=== PATIENT | female | born 1975 | race Caucasian/White ===

== ENCOUNTER 2024-11-10 01:27 | Day surgery (SDC) | payer OTHER, MEDICAID, SELFPAY ==
[2024-11-02 10:23] VITALS: BMI 12.9
--- NOTE | 2024-11-02 17:40 | PC.NURSE ---
Report to the Outpatient Waiting Room, entrance under the green pavilion located off [facility], at time 0830 on date 11/10/24. Planned Procedure Time: 1030.? Time changes happen often and if your time is changed the preop area will call you the afternoon before. - You and your visitor will be asked to self-screen and do not enter if you have any COVID symptoms. Please call surgeon if you need to reschedule. - A mask is optional within the hospital at this time. Patients may have clear liquids (water, carbonated beverages, clear teas, apple juice) until 3 hours prior to surgery with a maximum of 20 ounces. 0730 - No food from midnight until time of surgery and no smoking, or chewing tobacco (or any form of nicotine). No chewing gum, candy or mints. - Infants may have breast milk until 4 hours before surgery, formula 6 hours prior to surgery. - Children will be allowed to drink immediately following surgery.? If applicable, please bring a bottle or sippy cup to assist with drinking. Juice, water, soda, and popsicles are readily available.? For infants on formula, please bring formula the day of surgery.? Pacifiers are allowed. Take only the following medications with a SIP of water on the morning of surgery: lexapro, gabapentin, midodrine DO NOT STOP ANY OF YOUR OTHER PRESCRIPTION MEDICATIONS PRIOR TO SURGERY EXCEPT THE FOLLOWING Hold all vitamins and supplements for 3 days per anesthesiologist. Medications to discontinue per physician baby aspirin- hold for [address] Delvalle's instructions Date to take last dose 11/03/24 Please no make-up, nail cymro, hairspray, perfume, deodorant, or body powder the day of surgery.? No jewelry (including any body piercings) or valuables the day of surgery, leave them at home.? Please take a shower or bath the night before, or the morning of, surgery with an antibacterial soap.? Wear comfortable, loose fitting clothing.? Children are encouraged to wear pajamas. - Jewelry must be removed prior to entering the operating room.? Rings and piercings that are not removed may be cut off. - The hospital will not accept responsibility for valuables.? - Please leave all valuables, including medications, at home the day of surgery. If you are going home after surgery, a licensed limo driver must drive you home.? - NO public transportation without another adult if you receive anesthesia. - We recommend that an adult stay with you for 24 hours following discharge. - We also recommend that you do not drive, make important decision, drink alcoholic beverages, or take any drugs that were not prescribed by your health care provider for at least 24 hours after your discharge time. For Pediatric surgeries, we recommend two adults accompany the child home. Follow any additional instructions given to you from your surgeon. Telephone instructions given to Wilberto Rosario and asked if any additional questions and then verbalized understanding. Patient advised to call surgeon office or pre surgery nurse liaison [phone] if any additional questions.
--- NOTE | 2024-11-07 18:37 | PM.IMHP ---
H&P: HPI History of Present Illness Date/Time: 11/07/24 18:37 Chief Complaint: neurogenic bladder Narrative: Has Chronic griffith Review of Systems Review of Systems: All systems reviewed & are unremarkable except as noted in HPI and below PMFSH Social History Social History Years smoked: 20 Smoking status: Former smoker Tobacco type: cigarettes and e-cigarettes/vaping Smoking end date: 11/03/11 Living arrangements: with family Spiritual care concerns: No Meds Home Medications and Allergies Home Medications ?Medication ?Instructions ?Recorded ?Confirmed ?Type ascorbic acid (vitamin C) 500 mg 500 mg PO DAILY 11/02/24 11/02/24 History tablet (C-500) aspirin 81 mg chewable tablet 1 tablet PO DAILY 11/02/24 11/02/24 History atorvastatin 40 mg tablet 40 mg PO QPM 11/02/24 11/02/24 History escitalopram oxalate 10 mg tablet 10 mg PO DAILY 11/02/24 11/02/24 History fludrocortisone 0.1 mg tablet 0.1 mg PO DAILY 11/02/24 11/02/24 History gabapentin 300 mg capsule 300 mg PO Q8H 11/02/24 11/02/24 History midodrine 5 mg tablet 10 mg PO TID 11/02/24 11/02/24 History multivitamin (Daily Multi-Vitamin 1 tablet PO DAILY 11/02/24 11/02/24 History tablet) Allergies Allergy/AdvReac Type Severity Reaction Status Date / Time No Known Allergies Allergy Verified 11/02/24 10:06 Exam Narrative: WC bound Assessment and Plan Assessment and plan (1) 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
--- OUTSIDE RECORDS SUMMARY | 2024-11-10 01:32 | XMS_ITS | Encounter Summary ---
Author Organization [facility] Address [address] [place] [address] Care Team Providers Care Field Director Name Role Phone Jennie Cantu MD Primary Care Provider [phone] Encounter Details Date Type Department Care Team (Late st Contact Info) Description 11/02/2021 Lab Requisition [facility] [address] [place] [address] [place] [address] [place] [address] Social History Tobacco Use Types Packs/Day Years Used Date Smoking Tobacco: Every Day Comments Unknown Sex and Gender Information Value Date Recorded Sex Assigned at Not on file Legal Sex Female 11:07 AM CDT Gender Identity Not on file Sexual Orientation Not on file COVID-19 Exposure Response Date Recorded In the last 10 days, have yo u been in contact with someone who was confirmed or suspected to have Coronavirus/COVID-19? Unable to assess 11/05/2021 9:25 AM CDT documented as of this encounter Plan of Treatment Not on file documented as of this encounter Procedures Procedure Name Priority Date/Time Associated Diagnosis Comments CBC WITH DIFFERENTIAL Routine 11/02/2021 3:15 AM CDT BASIC METABOLIC PANEL Routine 11/02/2021 3:15 AM CDT documented in this encounter Results * (ABNORMAL) CBC WITH DIFFERENTIAL (11/02/2021 3:15 AM CDT) WBC 7.6 4.5 - 10.5 K/uL 11/[facility] RBC 4.31 3.90 - 4.90 M/uL 11/02/2021 7:05 AM [facility] HEMOGLOBIN 12.1 11.8 - 14.8 g/dL 11/02/2021 7:05 AM [facility] HEMATOCRIT 36.6 35.5 - 44.0 % 11/02/2021 7:05 AM CDT [facility] MCV 84.9 82.0 - 99.0 fL 11/02/2021 7:05 AM [facility] MCH 28.1 27.8 - 34.5 pg 11/02/2021 7:05 AM [facility] MCHC 33.2 32.5 - 35.5 g/dL 11/02/2021 7:05 AM [facility] RDW 18.2(H) 11.5 - 14.5 % 11/02/2021 7:05 AM [facility] PLATELETS 471(H) 160 - 420 K/uL 11/02/2021 7:05 AM [facility] MPV 7.4(L) 8.7 - 12.7 fL 11/02/2021 7:05 AM [facility] NEUTROPHILS 60 % 11/02/2021 7:05 AM CDT [facility] LYMPHOCYTES 28 % 11/02/2021 7:05 AM CDT [facility] MONOCYTES 9 % 11/02/2021 7:05 AM CDT [facility] EOSINOPHILS 2 % 11/02/2021 7:05 AM CDT [facility] BASOPHILS 0 % 11/02/2021 7:05 AM CDT [facility] NEUTROPHIL ABSOLUTE 4.60 1.90 - 7.00 K/uL 11/02/2021 7:05 AM CDT [facility] LYMPHOCYTE ABSOLUTE 2.10 0.70 - 4.50 K/uL 11/02/2021 7:05 AM CDT [facility] MONOCYTE ABSOLUTE 0.70 0.10 - 1.30 K/uL 11/02/2021 7:05 AM CDT [facility] EOSINOPHIL ABSOLUTE 0.20 0.00 - 0.70 K/uL 11/02/2021 7:05 AM CDT [facility] BASOPHILS ABSOLUTE 0.00 0.00 - 0.20 K/uL 11/02/2021 7:05 AM CDT [facility] Blood Collection / Unknown 11/02/2021 3:15 AM CDT 11/02/2021 6:50 AM CDT Kristin Llanos MD HEMATOLOGY ORDERABLES Final Resu lt [facility] CLIA# [id number] [place] [address] * (ABNORMAL) BASIC METABOLIC PANEL (11/02/2021 3:15 AM CDT) SODIUM 139 136 - 145 mmol/L 11/02/2021 7:22 AM CDT [facility] POTASSIUM 3.6 3.4 - 5.1 mmol/L 11/02/2021 7:22 AM CDT [facility] CHLORIDE 103 98 - 107 mmol/L 11/02/2021 7:22 AM CDT [facility] CO2 24 22 - 29 mmol/L 11/02/2021 7:22 AM CDT [facility] CALCIUM 9.6 8.6 - 10.4 mg/dL 11/02/2021 7:22 AM CDT [facility] BUN 16 6 - 20 mg/dL 11/02/2021 7:22 AM CDT [facility] CREATININE 0.14(L) 0.51 - 0.95 mg/dL 11/02/2021 7:22 AM CDT [facility] GLUCOSE 97 74 - 99 mg/dL 11/02/2021 7:22 AM CDT [facility] GFR >60 >=60 mL/min/1.7 3 sq meter 11/02/2021 7:22 AM CDT [facility] Comment:eGFR calculated with 2020 CKD-EPI equation. Vegetarian diet, extremely high or low muscle mass, and may affect results. Cystatin C with Glomerular Filtration Rate is a suitable alternative for these patients. ANION GAP 12 8 - 16 mmol/L 11/02/2021 7:22 AM CDT [facility] Blood Collection / Unknown 11/02/2021 3:15 AM CDT 11/02/2021 6:50 AM CDT Kristin Llanos MD CHEMISTRY ORDERABLES Final Resul t [facility] CLIA# [id number] [address] [place] [address] documented in this encounter Visit Diagnoses Not on filedocumented in this encounter Additional Health Concerns Infection Onset Date Last Indicated Resolved Time R/O C. diff 11/24/2021 11/25/2021 11/25/2021 12:4 1 PM CDT Multi Drug Resistant Organis m (MDRO) 11/25/2021 12/05/2021 Multi Drug Resistant Acinetobacter 12/05/20212021 documented as of this encounter Care Teams Field Director Relationship Specialty Start Date End Date Jennie Cantu MD PCP - General Family Practice 12/06/21 documented as of this encounter
--- OUTSIDE RECORDS SUMMARY | 2024-11-10 01:32 | XMS_ITS | Encounter Summary ---
Author Organization [facility] Healthcare Address [address] [place] [address] Care Team Providers Care Chef De Partie Name Role Phone Jennie Cantu MD Unavailable [phone] Jennie Cantu MD Primary Care Provider [phone] Reason for Referral * Consultation (Routine) - Pending Review Specialty Diagnoses / Procedures Referred By Sekou t Referred To Contact Hematology Diagnoses Iron deficiency anemia secondary to inadequate dietary iron intake Jennie Cantu MD [facility] [address] [place] [address] Phone: tel: fax: [facility] [address] [place] [address] [place] [phone] Referral ID Status Reason Start Date Expiration Date Visits Requested Visits Authorized [id number] Pending Review Specialty Services Required 11/09/2024 12/09/2025 1 1 Question Answer Please select the performing region: [facility] (All Locations) [[id number]] Please select the performing department: [facility] HEM MHE2 [id number] [[id number]] # of visits: 1 Encounter Details Date Type Department Care Team (Late st Contact Info) Description 11/09/2024 Orders Only [facility] Family Medicine [address] [facility] [facility] [address] [place] [id number] Jennie Cantu MD [address] [place] [address] [address] [place] [id number] Iron deficiency anemia secondary to inadequate dietary iron intake (Primary Dx) Social History Tobacco Use Types Packs/Day Years Used Date Smoking Tobacco: Former Cigarettes 0.5 20 0 05/26/1993 - 05/26/2013 Smokeless Tobacco: Former Alcohol Use Standard Drinks/Week Comments Never 0 (1 standard drink = 0.6 oz pur e alcohol) OASIS D0700: Social Isolation Answer Da te Recorded Frequency of experiencing loneliness or isolatio n Never 10/17/2024 OASIS A1250: Transportation Answer Date Recorded Lack of Transportation (Medical) No 02/22/2024 Lack of Transportation (Non-Medical) No 02/22/2024 Patient Unable or Declines to Respond No 02/22/2024 OASIS B1300: Health Literacy Answer George e Recorded Frequency of needing help to read materials from doctor or pharmacy Never 02/22/2024 AUDIT-C Answer Date Recorded Q1: How often do you have a drink containing alcohol? Never 02/11/2023 Q2: How many drinks containi ng alcohol do you have on a typical day when you are drinking? Patient does not drink Frequency of Binge Drinking Not on file 01/31 PHQ-2 Answer Date Recorded PHQ-2 Total Score (If total score is 3 or more points, staff should administer the PHQ-9) 0 08/22/2024 Personal Safety Answer Date Recorded Have you ever been in or are you currently in a harmful physical or emotional relationship or is someone making you feel afraid or unsafe? Denies 08/19/2024 Comments No Sex and Gender Information Value Date Recorded Sex Assigned at Not on file Legal Sex Female 6:45 PM TECHNOLOGY ANALYST Gender Identity Not on file Sexual Orientation Not on file documented as of this encounter Functional Status * Is this person blind or does he/she have serious difficulty seeing even when wearing glasses? Answer Date of Assessment Author Yes 08/17/2022 12:10 AM CDT documented as of this encounter Plan of Treatment Scheduled Referrals Name Type Priority Associated Diagnoses Order Schedule Ambulatory referral to Hematology Outpatient Referral Routine Iron deficiency anemia secondary to inadequate dietary iron intake 1 Occurrences starting 11/09/2024 until 11/09/2025 documented as of this encounter Visit Diagnoses Diagnosis Iron deficiency anemia secondary to inadequate dietary iron intake- Primary documented in this encounter Additional Health Concerns Infection Onset Date Last Indicated Resolved Time MDR gram neg/ESBL Comment:Contact Precautions (gown and gloves) KERI Parsons 02/26/23 Added from external infection @ [facility]. Carbapenem resistant acinetobacter baumannii. Contact precautions required. Gricelda Caceres 12/05/2021 documented as of this encounter Care Teams Chef De Partie Relationship Specialty Start Date End Date Jennie Cantu MD PCP - General Family Medicine 04/19/24 Jennie Cantu MD Family Medicine 02/17/22 documented as of this encounter
--- OUTSIDE RECORDS SUMMARY | 2024-11-10 01:32 | XMS_ITS | Clinical Summary ---
Author Organization [facility] Address [address] [place] [address] Phone Care Team Providers Care Tour Agent Name Role Phone Jennie Cantu MD Primary Care Provider [phone] Allergies No known active allergies Medications atorvastatin calcium (ATORVASTATIN ORAL) Take by mouth. Activ e MULTIVIT,MIN52-F [id number] ORAL Take by mouth. Activ e ergocalciferol, vitamin D2, (VITAMIN D ORAL) Take by mouth. Active aspirin (CANDY CHEWABLE) 81 mg Tablet, Chewable 1 Tablet (81 mg) by G Tube route daily with breakfast. 09/27/19 Active bethanechol (URECHOLINE) 25 mg tablet 1 Tablet (25 mg) by G Tube route 3 times daily before meals. 09/26/19 Active bisacodyL (DULCOLAX) 10 mg Suppository Insert 1 Suppository (10 mg) by rectum daily. 09/27/19 Active chlorhexidine gluconate 0.12 % Mouthwash 5 mL by Mouth/Throat route 2 times daily. 09/26/19 Active enoxaparin (LOVENOX) 30 mg/0.3 mL injection Inject 0.3 mL (30 mg) by subcutaneous injection every 12 hours. 0 09/26/19 Active famotidine (PEPCID) 20 mg tablet 1 Tablet (20 mg) by G Tube route 2 times daily. 09/26/19 Active fludrocortisone (FLORINEF) 0.1 mg tablet 1 Tablet (0.1 mg) by G Tube route daily. 09/27/19 22 Active gabapentin (NEURONTIN) 250 mg/5 mL solution Give 6 mL (300 mg) by G-Tube every 8 hours. 450 mL 1 09/26/19 Active glucagon human recombinant (GLUCAGEN) 1 mg/mL Recon Soln Inject 1 mL (1 mg) by intramuscular injection see administration instructions. Give if patient has meter glucose less than 70 mg/dL with * no IV access, unconscious, unable to swallow and/or NPO. * Once POC Glucose result is 70 mg/dL or greater after hypoglycemic episode, POC glucose to be checked every 30 minutes for 3 consecutive occurrences with results 70 mg/dL or greater, then resume previous POC Glucose check orders. 09/26/19 Active HYDROcodone-acet aminophen (NORCO) 5-325 mg tabletIndication s:Closed nondisplaced fracture of sixth cervical vertebra, unspecified fracture morphology, initial encounter ([facility]) 1 Tablet by G Tube route every 4 hours as needed for Pain, Moderate. Max Daily Amount: 6 Tablets 0 09/26/19 Active insulin glargine-yfgn 100 unit/mL pen syringe Inject 5 Units by subcutaneous injection daily at bedtime. 15 mL 09/26/19 Active insulin lispro (HumaLOG) 100 unit/mL pen syringe Inject 0-12 Units by subcutaneous injection every 4 hours. 15 mL 09/26/19 Active ipratropium-albu teroL (DUONEB) 0.5 mg-3 mg(2.5 mg base)/3 mL Solution for Nebulization Take 3 mL by inhalation now and then every 6 hours. 09/26/19 Active melatonin 3 mg Tablet 3 Tablets (9 mg) by G Tube route daily at bedtime. 09/26/19 Active naloxone (NARCAN) 0.4 mg/mL Solution Inject 0.25 mL (0.1 mg) by intravenous injection see administration instructions. 09/26/19 Active ondansetron (ZOFRAN) 4 mg/2 mL Solution Inject 2 mL (4 mg) by intravenous injection every 6 hours as needed for Nausea/Emesis. 09/26/19 Active psyllium husk-aspartame (METAMUCIL) 3.4 gram Powder in Packet 2 Packets (6.8 Grams) by G Tube route daily. 09/27/19 Active QUEtiapine (SEROquel) 50 mg tablet 1 Tablet (50 mg) by G Tube route daily at bedtime. 1 09/26/19 Active scopolamine (TRANSDERM-SCOP) 1 mg/72 hr patch Apply 1 Patch to skin as directed every third day. 09/27/19 Active sennosides-docus ate sodium (SENNA-S) 8.6-50 mg tablet 2 Tablets by G Tube route 2 times daily. 09/26/19 Active 0.9 % sodium chloride (sodium chloride 0.9%) Solution Inject 10 mL by intravenous injection see administration instructions. 09/26/19 Active theophylline 80 mg/15 mL Solution 28.1 mL (150 mg) by G Tube route every 8 hours. 09/26/19 Active potassium bicarbonate-citr ic acid (EFFER-K) 20 mEq Tablet, Effervescent 1 Tablet (20 mEq) by G Tube route daily. 12/18/19 Active LORazepam (ATIVAN) 0.5 mg tabletIndication s:Depression with anxiety,Quadripl egia, C5-C7 incomplete (CMS/HCC) 0.5 Tablets (0.25 mg) by G Tube route 2 times daily as needed for Anxiety. 12/17/19 Active loperamide (IMODIUM) 2 mg capsule Take 1 Capsule (2 mg) by mouth 4 times daily as needed for Diarrhea/Loose Stools. 12/17/19 Active guaiFENesin (ROBITUSSIN) 100 mg/5 mL solution 10 mL (200 mg) by G Tube route every 6 hours as needed for Cough. 12/17/19 Active cyclobenzaprine (FLEXERIL) 10 mg tablet 1 Tablet (10 mg) by G Tube route 3 times daily as needed for Spasm. 12/17/19 Active calcium as carbonate (TUMS) 500 mg (200 mg elemental) Tablet, Chewable 1 Tablet (200 mg) by G Tube route every 4 hours as needed for Dyspepsia. 12/17/19 Active balsam simon-castor oiL (VENELEX) Ointment Apply to affected area see administration instructions. 12/17/19 Active balsam simon-castor oiL (VENELEX) Ointment Apply to affected area 2 times daily. 12/17/19 Active albuterol (PROVENTIL,STORMY REBECCA) 2.5 mg /3 mL (0.083 %) Solution for Nebulization Take 3 mL (2.5 mg) by inhalation every 6 hours as needed for Shortness of Breath or Wheezing. 12/17/19 Active acetaminophen (TYLENOL) 325 mg/10.15 mL oral solution 20.3 mL (650 mg) by G Tube route every 6 hours as needed for Other (See Comment) (See admin instructions). Do not exceed 4000mg/day acetaminophen from all sources combined. Do not exceed acetaminophen 80mg/kg/day or 4 grams from all sources combined for pediatric patients per day. 12/17/19 Active midodrine (PROAMATINE) 5 mg tablet 3 Tablets (15 mg) by G Tube route every 8 hours. 12/17/19 Active escitalopram oxalate (LEXAPRO) 10 mg tablet 1 Tablet (10 mg) by G Tube route daily. 12/18/19 Active Active Problems Problem Noted Date Diagnosed Date Decubitus ulcer of right hip, unstageable 2021 PEG (percutaneous endoscopic gastrostomy) status 12/05/2021 Quadriplegia, C5-C7 incomplete 12/05/2021 Chronic indwelling Portillo catheter 12/05/2021 Abnormal finding on urinalysis 12/05/2021 Depression with anxiety 12/05/2021 Chronic hypotension 12/05/2021 Osteomyelitis of coccyx 12/05/2021 Normocytic anemia 09/25/2021 Shock circulatory 09/22/2021 Oropharyngeal dysphagia 09/22/2021 Thrombosis of right vertebral artery 08/24/2021 Spinal cord injury, C5-C7, initial encounter Traumatic pneumothorax 08/23/2021 Dyslipidemia 08/23/2021 Transection of cervical spinal cord 08/23/2021 Acute incomplete quadriplegia Acute respiratory failure, unsp w hypoxia or hyp ercapnia CSF leak Neurogenic shock Bradycardia Closed nondisplaced fracture of sixth cervical v ertebra Hyperlipidemia Sacral osteomyelitis Resolved Problems Problem Noted Date Diagnosed Date Resolved Date Quadriplegia, C5-C7, complete 12/05/2021 12/05/2021 Immunizations Immunization Administration Dates Next Due (ADACEL/BOOSTRIX)(10 YR UP) TDAP VACCINE, 0.5ML, IM 12/08/2021 (PREVNAR 20)(6 WKS UP) PNEUM OCOCCAL CONJUGATE VACCINE 20-VALENT (PCV20), POLYSACCHARIDE SEB138 CONJUGATE, ADJUVANT 0.5 ML (PF) IM 12/08/2021 Family History Medical History Relation Name Comments Heart Disease Father Breast Cancer Mother Relation Name Status Comments Father Mother Social History Tobacco Use Types Packs/Day Years Used Date Smoking Tobacco: Former Cigarettes 0.5 22 0 12/07/1991 - 12/06/2013 Comments Unknown Sex and Gender Information Value Date Recorded Sex Assigned at Not on file Legal Sex Female 11:07 AM CDT Gender Identity Not on file Sexual Orientation Not on file Last Filed Vital Signs Vital Sign Reading Time Taken Comments Blood Pressure 97/55 12/22/2021 3:45 PM CDT Pulse 64 12/22/2021 3:45 PM CDT Temperature 36.5 C (97.7 F) 12/22/2021 3:45 PM CDT Respiratory Rate 16 12/22/2021 3:45 PM CDT Oxygen Saturation 99% 12/22/2021 3:45 PM CDT Inhaled Oxygen Concentration - - Weight 52.2 kg (115 lb) 12/05/2021 12:22 PM CDT Height 154.9 cm (5' 1) 12/05/2021 12:22 PM CDT Body Mass Index 21.73 12/05/2021 12:22 PM CDT Plan of Treatment Health Maintenance Due Date Last Done Comments HEPATITIS B VACCINES (1 of 3 - 19+ 3-dose series) 1994 HPV/Cotest (21-29) 1996 CERVICAL CANCER SCREENING 2005 HPV/Cotest (30-65) 2005 PAP SMEAR 2005 COLORECTAL SCREENING 2020 Colorectal Cancer Screening 2020 FIT-DNA Q 3 years 2020 FIT/FOBT Q 1 year 2020 Flex Sig/CT Colonography Q 5 years 2020 BREAST CANCER SCREENING 03/03/2022 03/03/20 21, 06/02/2017, 12/12/2015 INFLUENZA VACCINE (#1) 2024 DTAP/TDAP/TD VACCINES (2 - T d or Tdap) 12/09/2031 12/08/2021 Medical Devices Implanted Type Area Fire Protection Fabricator Device Identifier Shelf Expiration Date Model / Serial / Lot Sealant Duraseal 5ml - [id number] Implanted:Qt y: 1 on 08/23/2021 by Chandana Brizuela MD at [facility] N/A: Spine Cervical Anterior [employer] 11/30/2022 / / [id number] Sealant Duraseal 5ml - [id number] Implanted:Qt y: 1 on 09/02/2021 by Ronni Nath MD at [facility] N/A: Neck [employer] [id number] 11/30/2022 / / [id number] Sealant Duraseal 5ml - [id number] Implanted:Qt y: 1 on 09/02/2021 by Ronni Nath MD at [facility] N/A: Neck [employer] 11/30/2022 / / [id number] Filler Bone Stimulan Paste 5cc W/Beads 620-005 - [id number] Implanted:Qt y: 1 on 09/09/2021 by Ronni Nath MD at [facility] N/A: Neck [employer] 05/02/2024 620-005 / / [id number] Sealant Duraseal 5ml - [id number] Implanted:Qt y: 1 on 09/09/2021 by Ronni Nath MD at [facility] N/A: Neck [employer] 11/30/2022 / / [id number] Peg Endovive Sfty 20fr [id number] - [id number] Implanted:Qt y: 1 on 09/17/2021 by Malorie Menon MD at [facility] Feeding Device N/A: Abdomen [employer] 08/30/2022 [id number] / / [id number] Duragen + 1x1in Dp-1011 - [id number] Implanted:Qt y: 1 on 08/23/2021 by Chandana Brizuela MD at [facility] N/A: Spine Cervical Anterior [employer] 06/30/2024 [id number] / / [id number] Description:ARIELLE REQ#[id number] LL Duragen + 1x1in Dp-1011 - [id number] Implanted:Qt y: 1 on 09/02/2021 by Ronni Nath MD at [facility] Graft N/A: Neck [employer] 04/01/2024 [id number] / / [id number] Hemostatic Surgiflo 8ml W/ Thrombin 2994 - [id number] Implanted:Qt y: 1 on 08/23/2021 by Chandana Brizuela MD at [facility] Hemostatic N/A: Spine Cervical Anterior J[employer]J- [employer] 10/30/2022 2994 / / [id number] Hemostatic Surgiflo 8ml W/ Thrombin 2994 - [id number] Implanted:Qt y: 1 on 09/02/2021 by Ronni Nath MD at [facility] Hemostatic N/A: Neck J&J- [employer] 12/31/2022 2994 / / [id number] Hemostatic Surgifoam Sz100 1974 - [id number] Implanted:Qt y: 1 on 09/09/2021 by Ronni Nath MD at [facility] Hemostatic N/A: Neck J&J- [employer] 04/15/20251974 / / [id number] Hemostatic Surgiflo 8ml W/ Thrombin 299 - [id number] Implanted:Qt y: 1 on 09/09/2021 by Ronni Nath MD at [facility] Hemostatic N/A: Neck J&J- [employer] 08/30/2022 2994 / / [id number] Plate Elite 27.5mm Implanted:Qt y: 1 on 09/02/2021 by Malorie Menon MD at [facility] Plate N/A: Neck [employer] DANEK [id number] / [id number] Description:1X ADD Tuan Infinity 3.5x80mm Pre-Cut [id number] - [id number] Implanted:Qt y: 2 on 09/09/2021 by Ronni Nath MD at [facility] Tuan N/A: Neck [employer] [id number] / / Description:LOAD #26 706 [address] [place] [address] [place] 4.0x13mm [id number] - [id number] Implanted:Qt y: 2 on 09/02/2021 by Ronni Nath MD at [facility] N/A: Neck [employer] [id number] / / Description:STERILIZATION DA TE: 08/27/2021 LOAD NUMBER: [id number]. ARIELLE REQ#[id number] Screw Bone St Rescue 4.5x13mm Implanted:Qt y: 2 on 09/02/2021 by Malorie Menon MD at [facility] N/A: Neck [employer] [id number] / [id number] Description:1X ADD Screw Infinity 3.5x12mm Mas [id number] - [id number] Implanted:Qt y: 4 on 09/09/2021 by Ronni Nath MD at [facility] N/A: Neck [employer] [id number] / / Description:LOAD #26 706 [address] 05 Screw Infinity 3.5x18mm Mas [id number] - [id number] Implanted:Qt y: 2 on 09/09/2021 by Ronni Nath MD at [facility] N/A: Neck [employer] [id number] / / Description:LOAD #26 706 [address] 05 Screw Infinity 3.5x20mm Mas [id number] - [id number] Implanted:Qt y: 2 on 09/09/2021 by Ronni Nath MD at [facility] N/A: Neck [employer] [id number] / / Description:LOAD #26 706 [address] 05 Set Screw Infinity Oc M6 [id number] - [id number] Implanted:Qt y: 8 on 09/09/2021 by Ronni Nath MD at [facility] N/A: Neck [employer] [id number] / / Description:LOAD #26 706 [address] 05 ARIELLE REQ#[id number] Allograft Crnrstn [id number] - [id number] Implanted:Qt y: 1 on 08/23/2021 by Chandana Brizuela MD at [facility] Tissue N/A: Spine Cervical Anterior [employer] 07/01/2024 [id number] / [id number] / [id number] Description:ARIELLE REQ#[id number] LL [place] Dbm 8x10cm [id number] - [id number] Implanted:Qt y: 1 on 09/09/2021 by Ronni Nath MD at [facility] Tissue N/A: Neck [employer] 12/11/2023 [id number] / [id number] / Description:REQ#[id number] Explanted Type Area Fire Protection Fabricator Device Identifier Shelf Expiration Date Model / Serial / Lot Plate [place] Vision Elite 25.0mm [id number] - [id number] Implanted:Qty : 1 on 08/23/2021 by Chandana Brizuela MD at [facility] Explanted:Qty : 1 on 09/02/2021 by Ronni Nath MD at [facility] Plate N/A: Spine Cervical Anterior [employer] [id number] / / Description:load no: [id number] sterilized: [id number] ARIELLE REQ#[id number] Screw Candi Stp 4x13mm Implanted:Qty : 4 on 08/23/2021 by Chandana Brizuela MD at [facility] Explanted:Qty : 4 on 09/02/2021 by Ronni Nath MD at [facility] Screw N/A: Spine Cervical Anterior [employer] [id number] / 08/22/2021 / [id number] Description:1X ADD Additional Health Concerns Infection Onset Date Last Indicated Multi Drug Resistant Organism (MDRO) 11/25/2021 12/05/2021 Multi Drug Resistant Acinetobacter 12/05/2021 12/05/2021 Insurance [facility] BLUE ACCESS/TRUE BLUE PPO [address] [place] [address] [place] [address] Advance Directives For more information, please contact: [phone] * Full Code (Latest Code Status on File) Date Activated Date Inactivated Comments 12/05/2021 3:52 PM 12/22/2021 10:44 PM * Full Code Date Activated Date Inactivated Comments 11/24/2021 7:40 PM 12/05/2021 12:17 PM * Full Code Date Activated Date Inactivated Comments 08/23/2021 9:31 PM 09/25/2021 9:06 PM * Full Code Date Activated Date Inactivated Comments 08/23/2021 3:05 PM 08/23/2021 9:31 PM Care Teams Tour Agent Relationship Specialty Start Date End Date Jennie Cantu MD PCP - General Family Practice 12/06/21
--- OUTSIDE RECORDS SUMMARY | 2024-11-10 01:32 | XMS_ITS | Encounter Summary ---
Author Organization [facility] Address [address] [place] [address] Care Team Providers Care Auto Carrier Driver Name Role Phone Jennie Cantu MD Primary Care Provider [phone] Encounter Details Date Type Department Care Team (Late st Contact Info) Description 10/27/2021 Lab Requisition [facility] Laboratory Services [address] [place] [address] [facility], External Provider [address] [place] [address] Social History Tobacco Use Types Packs/Day Years [...] suspected to have Coronavirus/COVID-19? Unable to assess 10/01/2021 3:36 PM CDT documented as of this encounter Plan of Treatment Not on file documented as of this encounter Procedures Procedure Name Priority Date/Time Associated Diagnosis Comments CBC WITH DIFFERENTIAL Routine 10/27/2021 3:15 AM CDT BASIC METABOLIC PANEL Routine 10/27/2021 3:15 AM CDT documented in this encounter Results * (ABNORMAL) CBC WITH DIFFERENTIAL (10/27/2021 3:15 AM CDT) WBC 8.4 4.5 - 10.5 K/uL 10/27/2021 6:54 AM CDT [facility] RBC 4.10 3.90 - 4.90 M/uL 10/27/2021 6:54 AM CDT [facility] HEMOGLOBIN 11.3(L) 11.8 - 14.8 g/dL 10/27/2021 6:54 AM CDT [facility] HEMATOCRIT 34.9(L) 35.5 - 44.0 % 10/27/2021 6:54 AM CDT [facility] MCV 85.1 82.0 - 99.0 fL 10/27/2021 6:54 AM CDT [facility] SERVICES [facility] MCH 27.5(L) 27.8 - 34.5 pg 10/27/2021 6:54 AM CDT [facility] SERVICES [facility] MCHC 32.3(L) 32.5 - 35.5 g/dL 10/27/2021 6:54 AM CDT [facility] RDW 19.0(H) 11.5 - 14.5 % 10/27/2021 6:54 AM CDT [facility] PLATELETS 485(H) 160 - 420 K/uL 10/27/2021 6:54 AM CDT [facility] MPV 8.2(L) 8.7 - 12.7 fL 10/27/2021 6:54 AM CDT [facility] SERVICES [facility] NEUTROPHILS 71 % 10/27/2021 6:54 AM CDT [facility] SERVICES [facility] LYMPHOCYTES 20 % 10/27/2021 6:54 AM CDT [facility] SERVICES [facility] MONOCYTES 8 % 10/27/2021 6:54 AM CDT [facility] SERVICES [facility] EOSINOPHILS 1 % 10/27/2021 6:54 AM CDT [facility] SERVICES [facility] BASOPHILS 1 % 10/27/2021 6:54 AM CDT [facility] SERVICES [facility] NEUTROPHIL ABSOLUTE 5.90 1.90 - 7.00 K/uL 10/27/2021 6:54 AM CDT [facility] LYMPHOCYTE ABSOLUTE 1.70 0.70 - 4.50 K/uL 10/27/2021 6:54 AM CDT [facility] MONOCYTE ABSOLUTE 0.70 0.10 - 1.30 K/uL 10/27/2021 6:54 AM CDT [facility] SERVICES [facility] EOSINOPHIL ABSOLUTE 0.10 0.00 - 0.70 K/uL 10/27/2021 6:54 AM CDT [facility] SERVICES [facility] BASOPHILS ABSOLUTE 0.00 0.00 - 0.20 K/uL 10/27/2021 6:54 AM CDT [facility] Blood Collection / Unknown 10/27/2021 3:15 AM CDT 10/27/2021 6:44 AM CDT us External Provider [facility] HEMATOLOGY ORDERABLES Fin al Result [facility] CLIA# [id number] [place] [address] * (ABNORMAL) BASIC METABOLIC PANEL (10/27/2021 3:15 AM CDT) SODIUM 139 136 - 145 mmol/L 10/27/2021 7:25 AM CDT [facility] POTASSIUM 3.7 3.4 - 5.1 mmol/L 10/27/2021 7:25 AM CDT [facility] CHLORIDE 100 98 - 107 mmol/L 10/27/2021 7:25 AM CDT [facility] CO2 26 22 - 29 mmol/L 10/27/2021 7:25 AM CDT [facility] CALCIUM 9.7 8.6 - 10.4 mg/dL 10/27/2021 7:25 AM CDT [facility] BUN 15 6 - 20 mg/dL 10/27/2021 7:25 AM CDT [facility] CREATININE 0.24(L) 0.51 - 0.95 mg/dL 10/27/2021 7:25 AM CDT [facility] GLUCOSE 117(H) 74 - 99 mg/dL 10/27/2021 7:25 AM CDT [facility] GFR >60 >=60 mL/min/1.7 3 sq meter 10/27/2021 7:25 AM CDT [facility] Comment:eGFR calculated with 2020 CKD-EPI equation. Vegetarian diet, extremely high or low muscle mass, and may affect results. Cystatin C with Glomerular Filtration Rate is a suitable alternative for these patients. ANION GAP 13 8 - 16 mmol/L 10/27/2021 7:25 AM CDT [facility] Blood Collection / Unknown 10/27/2021 3:15 AM CDT 10/27/2021 6:44 AM CDT us External Provider [facility] CHEMISTRY ORDERABLES Cortney l Result [facility] CLIA# [id number] [place] [address] documented in this encounter Visit Diagnoses Not on filedocumented in this encounter Additional Health Concerns Infection Onset Date Last Indicated Resolved Time R/O C. diff 11/24/2021 11/25/2021 11/25/2021 12:4 1 PM CDT Multi Drug Resistant Organis m (MDRO) 11/25/2021 12/05/2021 Multi Drug Resistant Acinetobacter 12/05/20212021 documented as of this encounter Care Teams Auto Carrier Driver Relationship Specialty Start Date End Date Jennie Cantu MD PCP - General Family Practice 12/06/21 documented as of this encounter
--- OUTSIDE RECORDS SUMMARY | 2024-11-10 01:32 | XMS_ITS | Encounter Summary ---
Author Organization [facility] Address [address] [place] [address] Care Team Providers Care Dialysis Clinical Manager Name Role Phone Jennie Cantu MD Primary Care Provider [phone] [phone] Encounter Details Date Type Department Care Team (Late st Contact Info) Description 10/24/2021 Lab Requisition [facility] Laboratory Services [address] [place] [address] [place] [address] [place] [address] Social History Tobacco Use Types [...] Associated Diagnosis Comments CBC WITH DIFFERENTIAL Routine 10/24/2021 4:15 AM CDT BASIC METABOLIC PANEL Routine 10/24/2021 4:15 AM CDT documented in this encounter Results * (ABNORMAL) CBC WITH DIFFERENTIAL (10/24/2021 4:15 AM CDT) WBC 8.7 4.5 - 10.5 K/uL 10/24/2021 8:15 AM CDT [facility] RBC 3.99 3.90 - 4.90 M/uL 10/24/2021 8:15 AM CDT [facility] HEMOGLOBIN 11.2(L) 11.8 - 14.8 g/dL 10/24/2021 8:15 AM CDT [facility] HEMATOCRIT 34.2(L) 35.5 - 44.0 % 10/24/2021 8:15 AM CDT [facility] MCV 85.7 82.0 - 99.0 fL 10/24/2021 8:15 AM CDT [facility] MCH 28.1 27.8 - 34.5 pg 10/24/2021 8:15 AM CDT [facility] MCHC 32.8 32.5 - 35.5 g/dL 10/24/2021 8:15 AM CDT [facility] RDW 18.8(H) 11.5 - 14.5 % 10/24/2021 8:15 AM CDT [facility] PLATELETS 420 160 - 420 K/uL 10/24/2021 8:15 AM CDT [facility] MPV 8.5(L) 8.7 - 12.7 fL 10/24/2021 8:15 AM CDT [facility] NEUTROPHILS 70 % 10/24/2021 8:15 AM CDT [facility] LYMPHOCYTES 21 % 10/24/2021 8:15 AM CDT [facility] MONOCYTES 8 % 10/24/2021 8:15 AM CDT [facility] EOSINOPHILS 1 % 10/24/2021 8:15 AM CDT [facility] BASOPHILS 0 % 10/24/2021 8:15 AM CDT [facility] NEUTROPHIL ABSOLUTE 6.10 1.90 - 7.00 K/uL 10/24/2021 8:15 AM CDT [facility] LYMPHOCYTE ABSOLUTE 1.80 0.70 - 4.50 K/uL 10/24/2021 8:15 AM CDT [facility] MONOCYTE ABSOLUTE 0.70 0.10 - 1.30 K/uL 10/24/2021 8:15 AM CDT [facility] EOSINOPHIL ABSOLUTE 0.10 0.00 - 0.70 K/uL 10/24/2021 8:15 AM CDT [facility] BASOPHILS ABSOLUTE 0.00 0.00 - 0.20 K/uL 10/24/2021 8:15 AM CDT [facility] Blood Collection / Unknown 10/24/2021 4:15 AM CDT 10/24/2021 7:42 AM CDT Kristin Llanos MD HEMATOLOGY ORDERABLES Final Resu lt [facility] CLIA# [id number] [place] [address] * (ABNORMAL) BASIC METABOLIC PANEL (10/24/2021 4:15 AM CDT) SODIUM 137 136 - 145 mmol/L 10/24/2021 8:10 AM CDT [facility] POTASSIUM 4.1 3.4 - 5.1 mmol/L 10/24/2021 8:10 AM CDT [facility] CHLORIDE 100 98 - 107 mmol/L 10/24/2021 8:10 AM CDT [facility] CO2 24 22 - 29 mmol/L 10/24/2021 8:10 AM CDT [facility] CALCIUM 9.5 8.6 - 10.4 mg/dL 10/24/2021 8:10 AM CDT [facility] BUN 11 6 - 20 mg/dL 10/24/2021 8:10 AM CDT [facility] CREATININE 0.20(L) 0.51 - 0.95 mg/dL 10/24/2021 8:10 AM CDT [facility] GLUCOSE 118(H) 74 - 99 mg/dL 10/24/2021 8:10 AM CDT [facility] [employer] [facility] GFR >60 >=60 mL/min/1.7 3 sq meter 10/24/2021 8:10 AM CDT [facility] [employer] [facility] Comment:eGFR calculated with 2020 CKD-EPI equation. Vegetarian diet, extremely high or low muscle mass, and may affect results. Cystatin C with Glomerular Filtration Rate is a suitable alternative for these patients. ANION GAP 13 8 - 16 mmol/L 10/24/2021 8:10 AM CDT [facility] Blood Collection / Unknown 10/24/2021 4:15 AM CDT 10/24/2021 7:42 AM CDT Kristin Llanos MD CHEMISTRY ORDERABLES Final Resul t [facility] [employer] [facility] CLIA# [id number] [place] [address] documented in this encounter Visit Diagnoses Not on filedocumented in this encounter Additional Health Concerns Infection Onset Date Last Indicated Resolved Time R/O C. diff 11/24/2021 11/25/2021 11/25/2021 12:4 1 PM CDT Multi Drug Resistant Organis m (MDRO) 11/25/2021 12/05/2021 Multi Drug Resistant Acinetobacter 12/05/20212021 documented as of this encounter Care Teams Dialysis Clinical Manager Relationship Specialty Start Date End Date Jennie Cantu MD PCP - General Family Practice 12/06/21 documented as of this encounter
--- OUTSIDE RECORDS SUMMARY | 2024-11-10 01:32 | XMS_ITS | Encounter Summary ---
Author Organization [facility] Address [address] [place] [address] Care Team Providers Care Tax Advisor Name Role Phone Jennie Cantu MD Primary Care Provider [phone] Encounter Details Date Type Department Care Team (Late st Contact Info) Description 10/30/2021 Lab Requisition [facility] Laboratory Services [address] [place] [address] [place] [address] [place] [address] Social History Tobacco Use Types [...] Associated Diagnosis Comments CBC WITH DIFFERENTIAL Routine 10/30/2021 3:00 AM CDT PHOSPHORUS Routine 10/30/2021 3:00 AM CDT BASIC METABOLIC PANEL Routine 10/30/2021 3:00 AM CDT documented in this encounter Results * PHOSPHORUS (10/30/2021 3:00 AM CDT) PHOSPHORUS 3.9 2.5 - 4.5 mg/dL 10/30/2021 4:47 AM CDT [facility] Blood 10/30/2021 3:00 AM CDT 10/30/2021 4:00 AM CDT Kristin Llanos MD CHEMISTRY ORDERABLES Final Resul t [facility] CLIA# [id number] [place] [address] * (ABNORMAL) CBC WITH DIFFERENTIAL (10/30/2021 3:00 AM CDT) [facility] WBC 8.7 4.5 - 10.5 K/uL 10/30/2021 4:23 AM CDT [facility] RBC 4.11 3.90 - 4.90 M/uL 10/30/2021 4:23 AM CDT [facility] HEMOGLOBIN 11.6(L) 11.8 - 14.8 g/dL 10/30/2021 4:23 AM CDT [facility] HEMATOCRIT 34.9(L) 35.5 - 44.0 % 10/30/2021 4:23 AM CDT [facility] MCV 85.0 82.0 - 99.0 fL 10/30/2021 4:23 AM CDT [facility] MCH 28.3 27.8 - 34.5 pg 10/30/2021 4:23 AM CDT [facility] MCHC 33.3 32.5 - 35.5 g/dL 10/30/2021 4:23 AM CDT [facility] RDW 18.5(H) 11.5 - 14.5 % 10/30/2021 4:23 AM CDT [facility] PLATELETS 509(H) 160 - 420 K/uL 10/30/2021 4:23 AM CDT [facility] MPV 7.5(L) 8.7 - 12.7 fL 10/30/2021 4:23 AM CDT [facility] NEUTROPHILS 73 % 10/30/2021 4:23 AM CDT [facility] LYMPHOCYTES 20 % 10/30/2021 4:23 AM CDT [facility] MONOCYTES 6 % 10/30/2021 4:23 AM CDT [facility] EOSINOPHILS 1 % 10/30/2021 4:23 AM CDT [facility] BASOPHILS 0 % 10/30/2021 4:23 AM CDT [facility] SERVICES [facility] NEUTROPHIL ABSOLUTE 6.30 1.90 - 7.00 K/uL 10/30/2021 4:23 AM CDT [facility] SERVICES [facility] LYMPHOCYTE ABSOLUTE 1.70 0.70 - 4.50 K/uL 10/30/2021 4:23 AM CDT [facility] SERVICES [facility] MONOCYTE ABSOLUTE 0.50 0.10 - 1.30 K/uL 10/30/2021 4:23 AM CDT [facility] EOSINOPHIL ABSOLUTE 0.10 0.00 - 0.70 K/uL 10/30/2021 4:23 AM CDT [facility] SERVICES [facility] BASOPHILS ABSOLUTE 0.00 0.00 - 0.20 K/uL 10/30/2021 4:23 AM CDT [facility] SERVICES [facility] Blood 10/30/2021 3:00 AM CDT 10/30/2021 4:00 AM CDT us Kristin Llanos MD HEMATOLOGY ORDERABLES Final Resu lt [facility] CLIA# [id number] [place] [address] * (ABNORMAL) BASIC METABOLIC PANEL (10/30/2021 3:00 AM CDT) SODIUM 139 136 - 145 mmol/L 10/30/2021 4:47 AM CDT [facility] POTASSIUM 4.1 3.4 - 5.1 mmol/L 10/30/2021 4:47 AM CDT [facility] CHLORIDE 103 98 - 107 mmol/L 10/30/2021 4:47 AM CDT [facility] CO2 24 22 - 29 mmol/L 10/30/2021 4:47 AM CDT [facility] CALCIUM 9.9 8.6 - 10.4 mg/dL 10/30/2021 4:47 AM CDT [facility] BUN 11 6 - 20 mg/dL 10/30/2021 4:47 AM T [facility] CREATININE 0.19(L) 0.51 - 0.95 mg/dL 10/30/2021 4:47 AM T [facility] GLUCOSE 92 74 - 99 mg/dL 10/30/2021 4:47 AM T [facility] GFR >60 >=60 mL/min/1.7 3 sq meter 10/30/2021 4:47 AM T [facility] Comment:eGFR calculated with 2020 CKD-EPI equation. Vegetarian diet, extremely high or low muscle mass, and may affect results. Cystatin C with Glomerular Filtration Rate is a suitable alternative for these patients. ANION GAP 12 8 - 16 mmol/L 10/30/2021 4:47 AM T [facility] Blood 10/30/2021 3:00 AM CDT 10/30/2021 4:00 AM CDT us Kristin Llanos MD CHEMISTRY ORDERABLES Final Resul t [facility] CLIA# [id number] [facility] [place] [address] documented in this encounter Visit Diagnoses Not on filedocumented in this encounter Additional Health Concerns Infection Onset Date Last Indicated Resolved Time R/O C. 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
--- OUTSIDE RECORDS SUMMARY | 2024-11-10 01:32 | XMS_ITS | Encounter Summary ---
Author Organization [facility] Address [address] [place] [address] Care Team Providers Care [employer] Network Architect Name Role Phone Jennie Cantu MD Primary Care Provider [phone] Encounter Details Date Type Department Care Team (Late st Contact Info) Description 11/07/2021 Lab Requisition [facility] Laboratory Services [address] [place] [address] [facility], External Provider [address] [place] [address] Social History Tobacco Use Types Packs/Day Years [...] Procedure Name Priority Date/Time Associated Diagnosis Comments VANCOMYCIN LEVEL TROUGH Routine 11/07/2021 3:30 AM CDT documented in this encounter Results * (ABNORMAL) VANCOMYCIN LEVEL TROUGH (11/07/2021 3:30 AM CDT) VANCOMYCIN, TROUGH 6.3(L) 10.0 - 17.0 ug/mL 11/07/2021 6:46 AM CDT [facility] Blood Collection / Unknown 11/07/2021 3:30 AM CDT 11/07/2021 6:11 AM CDT us External Provider [facility] CHEMISTRY ORDERABLES Cortney l Result [facility] CLIA# [id number] [place] [address] documented in this encounter Visit Diagnoses Not on filedocumented in this encounter Additional Health Concerns Infection Onset Date Last Indicated Resolved Time R/O C. 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
--- OUTSIDE RECORDS SUMMARY | 2024-11-10 01:32 | XMS_ITS | Referral Summary ---
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 Care 202; 46: S19-S40. Current interpretive data was last revised 2022. Testing performed by: [address] [address] Calcium 9.2 8.5 - 10.3 mg/dL JORDAN Comment:Testing performed by : [address] [address] Bilirubin, total 0.3 0.1 - 1.2 mg/dL [facility] Comment:Testing performed by : [address] [address] Protein, pl 6.6 6.5 - 8.5 g/dL [facility] Comment:Testing performed by : [address] [address] Albumin 3.6 3.5 - 5.0 g/dL [facility] Comment:Testing performed by : [address] [address] Alk phos 66 40 - 130 Units/L JORDAN Comment:Testing performed by : [address] [address] ALT 10 7 - 45 Units/L JORDAN Comment:Testing performed by : [address] [address] AST 28 10 - 45 Units/L JORDAN Comment:Testing performed by : [address] [address] Blood 08/19/2024 1:54 PM CDT 08/19/2024 2:00 PM CDT us Hayley Jean MD LAB BLOOD ORDERABLES Final Result JORDAN [address] [facility] Department [place] [address] * Thyroid Function [place] (08/17/2024 1:18 PM CDT) Pathologist [facility] [place] TSH 2.16 mIU/L [facility] Comment: Reference Range > or = 20 Years 0.40-4.50 Ranges First trimester 0.26-2.66 Second trimester 0.55-2.73 Third trimester 0.43-2.91 Blood 08/17/2024 1:18 PM CDT 08/17/2024 1:20 PM CDT Narrative [facility] - 08/18/2024 6:39 AM CDT FASTING:UNKNOWN FASTING: UNKNOWN us Arabella Altman NP LAB BLOOD ORDERABLES Final Resu lt [facility] [address] [place] [address] * (ABNORMAL) CBC with auto differential (08/17/2024 1:18 PM CDT) Pathologist [facility] [place] WBC 7.6 3.8 - 10.8 Thousand/u L [facility] RBC, POC 3.21(L) 3.80 - 5.10 Million/uL [facility] Hgb 7.5(L) 11.7 - 15.5 g/dL [facility] Hct 25.0(L) 35.0 - 45.0 % [facility] MCV 77.9(L) 80.0 - 100.0 fL [facility] MCH 23.4(L) 27.0 - 33.0 pg [facility] MCHC 30.0(L) 32.0 - 36.0 g/dL [facility] Comment: For adults, a slight decrease in the calculated MCHC value (in the range of 30 to 32 g/dL) is most likely not clinically significant; however, it should be interpreted with caution in correlation with other red cell parameters and the patient's clinical condition. Rdw 15.3(H) 11.0 - 15.0 % [facility] Platelets 352 140 - 400 Thousand/u L [facility] MPV 10.1 7.5 - 12.5 fL [facility] Neutrophils, abs 4,575 1,500 - 7,800 cells/uL [facility] Lymphocytes, abs 2,371 850 - 3,900 cells/uL [facility] Monocyte abs 433 200 - 950 cells/uL [facility] Eosinophils, abs 167 15 - 500 cells/uL [facility] Basophils, abs 53 0 - 200 cells/uL [facility] Neutrophils 60.2 % [facility] Lymphocyte pct 31.2 % [facility] Monocytes 5.7 % [facility] Eosinophils 2.2 % [facility] Basophils 0.7 % [facility] Blood 08/17/2024 1:18 PM CDT 08/17/2024 1:20 PM CDT Narrative [facility] - 08/18/2024 6:39 AM CDT FASTING:UNKNOWN FASTING: UNKNOWN Arabella Altman FENDER MECHANIC LAB BLOOD ORDERABLES Final Resu lt [facility] [address] [place] [address] * Vitamin D 25 hydroxy (08/17/2024 1:18 PM CDT) Pathologist [facility] [place] Vitamin D 25-OH 42 30 - 100 ng/mL [facility] Comment: Vitamin D Status 25-OH Vitamin D: Deficiency: <20 ng/mL Insufficiency: 20 - 29 ng/mL Optimal: > or = 30 ng/mL For 25-OH Vitamin D testing on patients on D2-supplementation and patients for whom quantitation of D2 and D3 fractions is required, the QuestAssureD(TM) 25-OH VIT D, (D2,D3), LC/MS/MS is recommended: order code 54688 (patients >2yrs). See Note 1 Note 1 For additional information, please refer to http://[employer]/faq/VGP439 (This link is being provided for informational/ educational purposes only.) Blood 08/17/2024 1:18 PM CDT 08/17/2024 1:20 PM CDT Narrative [facility] - 08/18/2024 6:39 AM CDT FASTING:UNKNOWN FASTING: UNKNOWN us Arabella Altman NP LAB BLOOD ORDERABLES Final Resu lt [facility] [address] [facility] [place] [address] * (ABNORMAL) Lipid panel (08/17/2024 1:18 PM CDT) Pathologist [facility] [place] Cholesterol 128 <200 mg/dL [facility] HDL 38(L) > OR = 50 mg/dL [facility] Triglycerides 108 <150 mg/dL [facility] LDL 71 mg/dL (calc) [facility] Comment: Reference range: <100 Desirable range <100 mg/dL for primary prevention; <70 mg/dL for patients with CHD or diabetic patients with > or = 2 CHD risk factors. LDL-C is now calculated using the Gary-Safia calculation, which is a validated novel method providing better accuracy than the Friedewald equation in the estimation of LDL-C. Gary MADISON et al. TAMEKA. 2013;310(19): 7809-2764 (http://education.C-sam.Number 100/faq/XBB769) Chol/HDL ratio 3.4 <5.0 (calc) [facility] Non-HDL, (LDL+VLDL) 90 <130 mg/dL (calc) [facility] Comment: For patients with diabetes plus 1 major ASCVD risk factor, treating to a non-HDL-C goal of <100 mg/dL (LDL-C of <70 mg/dL) is considered a therapeutic option. Blood 08/17/2024 1:18 PM CDT 08/17/2024 1:20 PM CDT Narrative [facility] - 08/18/2024 6:39 AM CDT FASTING:UNKNOWN FASTING: UNKNOWN us Arabella Altman FENDER MECHANIC LAB BLOOD ORDERABLES Final Resu lt [facility] [address] [address] [facility] [place] [address] * (ABNORMAL) Comprehensive metabolic panel (08/17/2024 1:18 PM CDT) Glucose 66 65 - 99 mg/dL [facility] Comment: Fasting reference interval BUN 21 7 - 25 mg/dL [facility] Comment: Verified by repeat analysis. Creatinine 0.3(L) 0.50 - 0.99 mg/dL [facility] Comment: Verified by repeat analysis. eGFR 130 > OR = 60 mL/min/1.7 3m2 [facility] BUN/creat ratio 70(H) 6 - 22 (calc) [facility] Sodium 139 135 - 146 mmol/L [facility] Potassium, pl 3.3(L) 3.5 - 5.3 mmol/L [facility] Chloride 102 98 - 110 mmol/L [facility] CO2 26 20 - 32 mmol/L [facility] Calcium 9.1 8.6 - 10.2 mg/dL [facility] Protein, sr 6.5 6.1 - 8.1 g/dL [facility] Albumin 3.8 3.6 - 5.1 g/dL [facility] GLOBULIN 2.7 1.9 - 3.7 g/dL (calc) [facility] Alb/glob ratio 1.4 1.0 - 2.5 (calc) [facility] Bilirubin, total 0.4 0.2 - 1.2 mg/dL [facility] Alk phos 60 31 - 125 U/L [facility] AST 20 10 - 35 U/L [facility] ALT (SGPT) 12 6 - 29 U/L [facility] Blood 08/17/2024 1:18 PM CDT 08/17/2024 1:20 PM CDT Narrative [facility] - 08/18/2024 6:39 AM CDT FASTING:UNKNOWN FASTING: UNKNOWN us Arabella Altman FENDER MECHANIC LAB BLOOD ORDERABLES Final Resu lt ASAD [address] [place] [address] * DIAGNOSTIC MAMMOGRAM BILATERAL W MUNDO (07/20/2023 9:01 AM CDT) Anatomical Region Laterality Modality Breast Bilateral Mammography 07/20/2023 9:25 AM CDT Narrative 07/20/2023 9:30 AM CDT EXAM DESCRIPTION: US BREAST LEFT LIMITED; DIAGNOSTIC MAMMOGRAM BILATERAL W MUNDO REASON FOR STUDY: 48-year-old female presents for follow-up of a probably benign finding in the left breast and for annual right screening mammogram. The patient is in a motorized wheelchair and unable to stand. The patient and her endorse interval weight loss since the most recent prior mammogram. COMPARISON: 03/03/2021, 08/30/2020, 08/08/2020, 11/29/2018, 06/02/2017 TECHNIQUE: CC and MLO views of the bilateral breasts were obtained with digital technique using breast tomosynthesis with C view. Limited grayscale ultrasound of the left breast was performed. FINDINGS: DENSITY: The breasts are heterogeneously dense, which may obscure small masses. MAMMOGRAM FINDINGS: Suboptimal examination due to difficulty involving patient positioning due to the patient's physical condition and limited mobility. Interval decreased size of the bilateral breasts is consistent with the reported weight loss. The small mass in the left breast at the 2-3 o'clock position, middle depth, seen on prior mammograms is not definitely evident on today's examination. No suspicious masses, suspicious calcifications, or other suspicious findings are seen in either breast. There has been no suspicious change in either breast on mammogram. ULTRASOUND FINDINGS: Targeted ultrasound of the left breast at 2:30 o'clock, 5 cm from the nipple demonstrates only normal tissue. The small hypoechoic mass seen at this location on prior ultrasound is no longer present, evidence of a benign resolved entity (most likely a cyst). IMPRESSION: 1. The probably benign mass at the 2:30 o'clock position of the left breast (5 cm from the nipple) has resolved since March 2021, evidence of a benign etiology (likely a cyst). 2. No mammographic evidence of malignancy in either breast. Screening mammogram in 1 year is recommended. BIRADS 1 - Negative The patient and her were notified of these results and recommendations. THIS IS AN ELECTRONICALLY VERIFIED FINAL REPORT 07/20/2023 9:30 AM - Electronically signed by Javy Moreira M.D. MD: Report ID: [id number] [facility] Beckie Greenwood NP IMG MAMMO PROCEDURES Final Res ult * Hepatitis C antibody (01/20/2014 2:35 PM CDT) Hep C Ab NONREACT NONREACTIVE Comment: Siemens NERITESaurXP using VINNIE (chemiluminescent immunoassay) technology. NONREACTIVE: Antibodies to Hepatitis C not detected. This does not exclude early acute Hepatitis C infection, possibility of exposure to Hepatitis C, antibodies below detection limit, or to lack of antibody reactivity to the antigen used in this assay. EQUIVOCAL: Antibodies to Hepatitis C may or may not be present. Sample to be confirmed by real-time PCR method. REACTIVE: Antibodies to Hepatitis C detected. 01/20/2014 2:35 PM CDT 01/20/2014 2:38 PM CDT us Sandy SALAZAR LAB MICROBIOLOGY - GENERAL OR DERABLES Final Result [facility] HISTORICAL RESULTS from Last 3 Months or Most Recently Relevant to Health Maintenance Additional Health Concerns Infection Onset Date Last Indicated MDR gram neg/ESBL Comment:Contact Precautions (gown and gloves) KERI Parsons 02/26/23 Added from external infection @ [facility]. Carbapenem resistant acinetobacter baumannii. Contact precautions required. G. Montcalm 12/05/2021 Insurance [facility] [facility] Member Subscriber Plan / Payer (Ef fective 2017-Present) Name:Jonathan Mis Madelin Relation to Subscriber:Spouse Name:JONATHANDIANDRA Date of :1974 (Home) Address: [address] [place] [address] Payer ID:[id number] (NAIC) Type:[facility] Address: [address] IDOK [facility] CHOICE PLUS IDPA [facility] CHOICE PLUS MARIE [phone] Care Teams Fibrous Plasterer Relationship Specialty Start Date End Date Jennie Cantu MD PCP - General Family Medicine 04/19/24 Jennie Cantu MD Family Medicine 02/17/22
--- OUTSIDE RECORDS SUMMARY | 2024-11-10 01:32 | XMS_ITS | Encounter Summary ---
Author Organization [facility] Address [address] [place] [address] Care Team Providers Care Senior Mobile Application Developer Name Role Phone Jennie Cantu MD Primary Care Provider [phone] Encounter Details Date Type Department Care Team (Late st Contact Info) Description 11/11/2021 Lab Requisition [facility] Laboratory Services [address] [place] [address] [place] [address] [place] [address] Social History Tobacco Use Types [...] Associated Diagnosis Comments CBC WITH DIFFERENTIAL Routine 11/11/2021 2:05 AM CDT PHOSPHORUS Routine 11/11/2021 2:05 AM CDT BASIC METABOLIC PANEL Routine 11/11/2021 2:05 AM CDT documented in this encounter Results * PHOSPHORUS (11/11/2021 2:05 AM CDT) PHOSPHORUS 3.1 2.5 - 4.5 mg/dL 11/11/2021 8:06 AM CDT [facility] Blood Collection / Unknown 11/11/2021 2:05 AM CDT 11/11/2021 7:00 AM CDT Kristin Llanos MD CHEMISTRY ORDERABLES Final Resul t [facility] CLIA# [id number] [address] [place] [address] * (ABNORMAL) CBC WITH DIFFERENTIAL (11/11/2021 2:05 AM CDT) Pathologist [facility] WBC 5.8 4.5 - 10.5 K/uL 11/11/2021 7:43 AM CDT [facility] RBC 4.31 3.90 - 4.90 M/uL 11/11/2021 7:43 AM CDT [facility] [employer] [facility] HEMOGLOBIN 11.9 11.8 - 14.8 g/dL 11/11/2021 7:43 AM CDT [facility] HEMATOCRIT 36.5 35.5 - 44.0 % 11/11/2021 7:43 AM CDT [facility] MCV 84.6 82.0 - 99.0 fL 11/11/2021 7:43 AM CDT [facility] MCH 27.7(L) 27.8 - 34.5 pg 11/11/2021 7:43 AM CDT [facility] MCHC 32.7 32.5 - 35.5 g/dL 11/11/2021 7:43 AM CDT [facility] RDW 18.4(H) 11.5 - 14.5 % 11/11/2021 7:43 AM CDT [facility] PLATELETS 320 160 - 420 K/uL 11/11/2021 7:43 AM CDT [facility] MPV 8.3(L) 8.7 - 12.7 fL 11/11/2021 7:43 AM CDT [facility] LABORATORY SERVICES [facility] NEUTROPHILS 58 % 11/11/2021 7:43 AM CDT [facility] LABORATORY SERVICES [facility] LYMPHOCYTES 33 % 11/11/2021 7:43 AM CDT [facility] LABORATORY SERVICES [facility] MONOCYTES 7 % 11/11/2021 7:43 AM CDT [facility] LABORATORY SERVICES [facility] EOSINOPHILS 2 % 11/11/2021 7:43 AM CDT [facility] LABORATORY SERVICES [facility] BASOPHILS 0 % 11/11/2021 7:43 AM CDT [facility] LABORATORY SERVICES [facility] NEUTROPHIL ABSOLUTE 3.40 1.90 - 7.00 K/uL 11/11/2021 7:43 AM CDT [facility] LABORATORY [facility] LYMPHOCYTE ABSOLUTE 1.90 0.70 - 4.50 K/uL 11/11/2021 7:43 AM CDT [facility] LABORATORY [facility] MONOCYTE ABSOLUTE 0.40 0.10 - 1.30 K/uL 11/11/2021 7:43 AM CDT [facility] LABORATORY SERVICES [facility] EOSINOPHIL ABSOLUTE 0.10 0.00 - 0.70 K/uL 11/11/2021 7:43 AM CDT [facility] LABORATORY SERVICES [facility] BASOPHILS ABSOLUTE 0.00 0.00 - 0.20 K/uL 11/11/2021 7:43 AM CDT [facility] LABORATORY [facility] Blood Collection / Unknown 11/11/2021 2:05 AM CDT 11/11/2021 7:00 AM CDT us Kristin Llanos MD HEMATOLOGY ORDERABLES Final Resu lt [facility] CLIA# [id number] [place] [address] * (ABNORMAL) BASIC METABOLIC PANEL (11/11/2021 2:05 AM CDT) SODIUM 140 136 - 145 mmol/L 11/11/2021 8:06 AM CDT [facility] POTASSIUM 3.6 3.4 - 5.1 mmol/L 11/11/2021 8:06 AM T [facility] CHLORIDE 103 98 - 107 mmol/L 11/11/2021 8:06 AM T [facility] CO2 25 22 - 29 mmol/L 11/11/2021 8:06 AM T [facility] CALCIUM 9.5 8.6 - 10.4 mg/dL 11/11/2021 8:06 AM T [facility] BUN 13 6 - 20 mg/dL 11/11/2021 8:06 AM T [facility] CREATININE 0.13(L) 0.51 - 0.95 mg/dL 11/11/2021 8:06 AM T [facility] GLUCOSE 92 74 - 99 mg/dL 11/11/2021 8:06 AM T [facility] GFR >60 >=60 mL/min/1.7 3 sq meter 11/11/2021 8:06 AM T [facility] Comment:eGFR calculated with 2020 CKD-EPI equation. Vegetarian diet, extremely high or low muscle mass, and may affect results. Cystatin C with Glomerular Filtration Rate is a suitable alternative for these patients. ANION GAP 12 8 - 16 mmol/L 11/11/2021 8:06 AM T [facility] Blood Collection / Unknown 11/11/2021 2:05 AM CDT 11/11/2021 7:00 AM CDT us Kristin Llanos MD CHEMISTRY ORDERABLES Final Resul t [facility] CLIA# [id number] [address] [place] [address] documented in this encounter Visit Diagnoses Not on filedocumented in this encounter Additional Health Concerns Infection Onset Date Last Indicated Resolved Time R/O C. diff 11/24/2021 11/25/2021 11/25/2021 12:4 1 PM CDT Multi Drug Resistant Organis m (MDRO) 11/25/2021 12/05/2021 Multi Drug Resistant Acinetobacter 12/05/20212021 documented as of this encounter Care Teams Senior Mobile Application Developer Relationship Specialty Start Date End Date Jennie Cantu MD PCP - General Family Practice 12/06/21 documented as of this encounter
--- OUTSIDE RECORDS SUMMARY | 2024-11-10 01:32 | XMS_ITS | Encounter Summary ---
Author Organization [facility] Address [address] [place] [address] Care Team Providers Care Insulation Manager Name Role Phone Jennie Cantu MD Unavailable [phone] Jennie Cantu MD Primary Care Provider [phone] Encounter Details Date Type Department Care Team (Late st Contact Info) Description 11/09/2024 Results Follow-Up [facility] Family Medicine [address] [address] Arabella Altman, HEEL EDGE INKER MACHINE [address] [address] Comprehensive metabolic panel, CBC without differential Social History Tobacco Use Types Packs/Day Years [...] on file Legal 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 Answer Date of Assessment Author Yes 08/17/2022 12:10 AM CDT documented as of this encounter Plan of Treatment Not on file documented as of this encounter Visit Diagnoses Not on filedocumented in this encounter Additional Health Concerns Infection Onset Date Last Indicated Resolved Time MDR gram neg/ESBL Comment:Contact Precautions (gown and gloves) KERI Parsons 02/26/23 Added from external infection @ [facility]. Carbapenem resistant acinetobacter baumannii. Contact precautions required. Gricelda Caceres 12/05/2021 documented as of this encounter Care Teams Insulation Manager Relationship Specialty Start Date End Date Jennie Cantu MD PCP - General Family Medicine 04/19/24 Jennie Cantu MD Family Medicine 02/17/22 documented as of this encounter
--- OUTSIDE RECORDS SUMMARY | 2024-11-10 01:32 | XMS_ITS | Encounter Summary ---
Author Organization [facility] Address [address] [place] [address] Care Team Providers Care Level Vial Inside Grinder Name Role Phone Jennie Cantu MD Primary Care Provider [phone] Encounter Details Date Type Department Care Team (Late st Contact Info) Description 11/05/2021 Lab Requisition [facility] Laboratory Services [address] [place] [address] [place] [address] [place] [address] Social History Tobacco Use Types [...] Procedure Name Priority Date/Time Associated Diagnosis Comments LACTIC ACID Stat 11/05/2021 1:30 AM CDT documented in this encounter Results * LACTIC ACID (11/05/2021 1:30 AM CDT) LACTIC ACID 1.5 <=2.0 mmol/L 11/05/2021 3:56 AM CDT [facility] LABORATORY SERVICES [facility] Blood Collection / Unknown 11/05/2021 1:30 AM CDT 11/05/2021 3:27 AM CDT Kristin Llanos MD CHEMISTRY ORDERABLES Final Resul t [facility] CLIA# [id number] [address] [place] [address] documented in this encounter Visit Diagnoses Not on filedocumented in this encounter Additional Health Concerns Infection Onset Date Last Indicated Resolved Time R/O C. diff 11/24/2021 11/25/2021 11/25/2021 12:4 1 PM CDT Multi Drug Resistant Organis m (MDRO) 11/25/2021 12/05/2021 Multi Drug Resistant Acinetobacter 12/05/20212021 documented as of this encounter Care Teams Level Vial Inside Grinder Relationship Specialty Start Date End Date Jennie Cantu MD PCP - General Family Practice 12/06/21 documented as of this encounter
--- OUTSIDE RECORDS SUMMARY | 2024-11-10 01:32 | XMS_ITS | Encounter Summary ---
Author Organization [facility] Address [address] [place] [address] Care Team Providers Care Halal Butcher Name Role Phone Jennie Cantu MD Primary Care Provider [phone] Encounter Details Date Type Department Care Team (Late st Contact Info) Description 11/05/2021 Lab Requisition [facility] Laboratory Services [address] [place] [address] [place] [address] [place] [address] Social History Tobacco Use Types [...] Procedure Name Priority Date/Time Associated Diagnosis Comments EXTRA TUBE (URINE MOBLEY) Routine 11/05/2021 10:15 AM CDT URINALYSIS WITH REFLEX CULTURE Routine 11/05/2021 10:15 AM CDT URINE CULTURE Routine 11/05/2021 10:15 AM CDT documented in this encounter Results * (ABNORMAL) URINE CULTURE (11/05/2021 10:15 AM CDT) CULTURE CITROBACTER AMALONATICUS(A) BESS MCG/ML 11/06/2021 2:02 PM CDT [facility] Comment:No further workup in dicated. Urine URINE SPECIMEN OBTAINED BY CLEAN CATCH PROCEDURE / Unknown Collection / Unknown 11/05/2021 10:15 AM CDT 11/05/2021 11:53 AM CDT Kristin Llanos MD MICROBIOLOGY - GENERAL ORDERABLE S Final Result [facility] CLIA# [id number] [address] [place] [address] * EXTRA TUBE (URINE MOBLEY) (11/05/2021 10:15 AM CDT) Urine URINE SPECIMEN OBTAINED BY CLEAN CATCH PROCEDURE / Unknown Collection / Unknown 11/05/2021 10:15 AM CDT 11/05/2021 11:46 AM CDT Kristin Llanos MD URINE ORDERABLES Final Result [facility] CLIA# [id number] [place] [address] * (ABNORMAL) URINALYSIS WITH REFLEX CULTURE (11/05/2021 10:15 AM CDT) COLOR UA Yellow Pale to Dark Yellow 11/05/2021 11:53 AM CDT [facility] CLARITY UA Slightly Cloudy(A) Clear 11/05/2021 11:53 AM CDT [facility] SPECIFIC GRAVITY UA 1.020 1.003 - 1.035 11/05/2021 11:53 AM CDT [facility] PH UA 6.0 5.0 - 8.0 11/05/2021 11:53 AM CDT [facility] LEUKOCYTE ESTERASE UA 2+(A) Negative 11/05/2021 11:53 AM CDT [facility] NITRITE UA Negative Negative 11/05/2021 11:53 AM CDT [facility] PROTEIN UA Negative Negative 11/05/2021 11:53 AM CDT [facility] GLUCOSE UA Negative Negative 11/05/2021 11:53 AM CDT [facility] KETONES UA Negative Negative 11/05/2021 11:53 AM CDT [facility] UROBILINOGEN UA Normal <2.0 mg/dL 11:53 AM CDT [facility] BILIRUBIN UA Negative Negative 11/05/2021 11:53 AM CDT [facility] BLOOD UA Negative Negative 11/05/2021 11:53 AM CDT [facility] WBC UA 26-50(A) 0 - 2 /hpf 11/05/2021 11:53 AM CDT [facility] RBC UA 3-5(A) 0 - 2 /hpf 11/05/2021 11:53 AM CDT [facility] BACTERIA UA 1+(A) Negative /hpf 11/05/2021 11:53 AM CDT [facility] EPITHELIAL CELLS, URINE 0-5 0 - 5 /hpf 11/05/2021 11:53 AM CDT [facility] HYALINE CAST None Seen None Seen, 0-2 /lpf 11/05/2021 11:53 AM CDT [facility] Urine URINE SPECIMEN OBTAINED BY CLEAN CATCH PROCEDURE / Unknown Collection / Unknown 11/05/2021 10:15 AM CDT 11/05/2021 11:46 AM CDT Narrative [facility] - 11/05/2021 11:53 AM CDT Based on results, a urine culture has been reflexed. us Kristin Llanos MD URINE ORDERABLES Final Result [facility] CLIA# [id number] [place] [address] documented in this encounter Visit Diagnoses Not on filedocumented in this encounter Additional Health Concerns Infection Onset Date Last Indicated Resolved Time R/O C. diff 11/24/2021 11/25/2021 11/25/2021 12:4 1 PM CDT Multi Drug Resistant Organis m (MDRO) 11/25/2021 12/05/2021 Multi Drug Resistant Acinetobacter 12/05/20212021 documented as of this encounter Care Teams Halal Butcher Relationship Specialty Start Date End Date Jennie Cantu MD PCP - General Family Practice 12/06/21 documented as of this encounter
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
--- OUTSIDE RECORDS SUMMARY | 2024-11-10 01:32 | XMS_ITS | Encounter Summary ---
Author Organization [facility] Address [address] [place] [address] Care Team Providers Care Mri Tech Name Role Phone Jennie Cantu MD Primary Care Provider [phone] Encounter Details Date Type Department Care Team (Late st Contact Info) Description 11/05/2021 Lab Requisition [facility] Laboratory Services [id number] [place] [address] [place] [address] [place] [address] Social History Tobacco Use Types [...] Associated Diagnosis Comments CBC WITH DIFFERENTIAL Routine 11/05/2021 1:30 AM CDT BLOOD CULTURE Routine 11/05/2021 1:30 AM CDT BLOOD CULTURE Routine 11/05/2021 1:30 AM CDT COMPREHENSIVE METABOLIC PANEL Routine 11/05/2021 1:30 AM CDT documented in this encounter Results * BLOOD CULTURE (11/05/2021 1:30 AM CDT) BLOOD CULTURE No growth 11/10/2021 10:05 AM CDT [facility] Blood Collection / Unknown 11/05/2021 1:30 AM CDT 11/05/2021 8:14 AM CDT Kristin Llanos MD MICROBIOLOGY - GENERAL ORDERABLE S Final Result [facility] CLIA# [id number] [address] [place] [address] * BLOOD CULTURE (11/05/2021 1:30 AM CDT) Pathologist [facility] BLOOD CULTURE No growth 11/10/2021 10:06 AM CDT [facility] Blood Collection / Unknown 11/05/2021 1:30 AM CDT 11/05/2021 8:14 AM CDT Kristin Llanos MD MICROBIOLOGY - GENERAL ORDERABLE S Final Result [facility] CLCA# [id number] [address] [place] [address] * (ABNORMAL) CBC WITH DIFFERENTIAL (11/05/2021 1:30 AM CDT) WBC 7.7 4.5 - 10.5 K/uL 11/05/2021 3:40 AM CDT [facility] RBC 4.11 3.90 - 4.90 M/uL 11/05/2021 3:40 AM CDT [facility] HEMOGLOBIN 11.5(L) 11.8 - 14.8 g/dL 11/05/2021 3:40 AM CDT [facility] HEMATOCRIT 35.2(L) 35.5 - 44.0 % 11/05/2021 3:40 AM CDT [facility] MCV 85.6 82.0 - 99.0 fL 11/05/2021 3:40 AM CDT [facility] - [facility] MCH 28.0 27.8 - 34.5 pg 11/05/2021 3:40 AM CDT [facility] MCHC 32.8 32.5 - 35.5 g/dL 11/05/2021 3:40 AM CDT [facility] RDW 19.0(H) 11.5 - 14.5 % 11/05/2021 3:40 AM CDT [facility] PLATELETS 333 160 - 420 K/uL 11/05/2021 3:40 AM CDT [facility] MPV 7.9(L) 8.7 - 12.7 fL 11/05/2021 3:40 AM CDT [facility] NEUTROPHILS 72 % 11/05/2021 3:40 AM CDT [facility] LYMPHOCYTES 15 % 11/05/2021 3:40 AM CDT [facility] MONOCYTES 12 % 11/05/2021 3:40 AM CDT [facility] EOSINOPHILS 0 % 11/05/2021 3:40 AM CDT [facility] BASOPHILS 1 % 11/05/2021 3:40 AM CDT [facility] NEUTROPHIL ABSOLUTE 5.60 1.90 - 7.00 K/uL 11/05/2021 3:40 AM CDT [facility] LYMPHOCYTE ABSOLUTE 1.20 0.70 - 4.50 K/uL 11/05/2021 3:40 AM CDT [facility] MONOCYTE ABSOLUTE 0.90 0.10 - 1.30 K/uL 11/05/2021 3:40 AM CDT [facility] EOSINOPHIL ABSOLUTE 0.00 0.00 - 0.70 K/uL 11/05/2021 3:40 AM CDT [facility] BASOPHILS ABSOLUTE 0.00 0.00 - 0.20 K/uL 11/05/2021 3:40 AM CDT [facility] [employer] [facility] Blood Collection / Unknown 11/05/2021 1:30 AM CDT 11/05/2021 3:40 AM CDT us Kristin Llanos MD HEMATOLOGY ORDERABLES Final Resu lt [facility] CLIA# [id number] [address] [place] [address] * (ABNORMAL) COMPREHENSIVE METABOLIC PANEL (11/05/2021 1:30 AM CDT) SODIUM 133(L) 136 - 145 mmol/L 11/05/2021 4:07 AM T [facility] POTASSIUM 4.4 3.4 - 5.1 mmol/L 11/05/2021 4:07 AM T [facility] CHLORIDE 96(L) 98 - 107 mmol/L 11/05/2021 4:07 AM T [facility] [employer] [facility] CO2 22 22 - 29 mmol/L 11/05/2021 4:07 AM [facility] CALCIUM 9.6 8.6 - 10.4 mg/dL 11/05/2021 4:07 AM [facility] BUN 24(H) 6 - 20 mg/dL 11/05/2021 4:07 AM T [facility] CREATININE 0.29(L) 0.51 - 0.95 mg/dL 11/05/2021 4:07 AM T [facility] GLUCOSE 118(H) 74 - 99 mg/dL 11/05/2021 4:07 AM T [facility] TOTAL PROTEIN 6.4 6.3 - 8.7 g/dL 11/05/2021 4:07 AM T [facility] ALBUMIN 3.5 3.5 - 5.2 g/dL 11/05/2021 4:07 AM T [facility] BILIRUBIN TOTAL 0.2(L) 0.3 - 1.2 mg/dL 11/05/2021 4:07 AM T [facility] ALKALINE PHOSPHATASE 81 40 - 150 U/L 11/05/2021 4:07 AM T [facility] AST 26 0 - 33 U/L 11/05/2021 4:07 AM T [facility] ALT 29 0 - 33 U/L 11/05/2021 4:07 AM T [facility] GFR >60 >=60 mL/min/1.7 3 sq meter 11/05/2021 4:07 AM T [facility] Comment:eGFR calculated with 2020 CKD-EPI equation. Vegetarian diet, extremely high or low muscle mass, and may affect results. Cystatin C with Glomerular Filtration Rate is a suitable alternative for these patients. ANION GAP 15 8 - 16 mmol/L 11/05/2021 4:07 AM T [facility] Blood Collection / Unknown 11/05/2021 1:30 AM CDT 11/05/2021 3:37 AM CDT us Kristin Llanos MD CHEMISTRY ORDERABLES Final Resul t [facility] CLIA# [id number] [place] [address] documented in this encounter Visit Diagnoses Not on filedocumented in this encounter Additional Health Concerns Infection Onset Date Last Indicated Resolved Time R/O C. 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
--- OUTSIDE RECORDS SUMMARY | 2024-11-10 01:33 | XMS_ITS | Encounter Summary ---
Author Organization [facility] Address [address] [place] [address] Care Team Providers Care Hunter Name Role Phone Jennie Cantu MD Primary Care Provider [phone] Encounter Details Date Type Department Care Team (Late st Contact Info) Description 11/08/2021 Lab Requisition [facility] Laboratory Services [address] [place] [address] [place] [address] [place] [address] Social History Tobacco Use Types [...] Associated Diagnosis Comments CBC WITH DIFFERENTIAL Routine 11/08/2021 4:30 AM CDT BASIC METABOLIC PANEL Routine 11/08/2021 4:30 AM CDT documented in this encounter Results * (ABNORMAL) CBC WITH DIFFERENTIAL (11/08/2021 4:30 AM CDT) WBC 3.9(L) 4.5 - 10.5 K/uL 11/08/2021 7:[facility] RBC 3.83(L) 3.90 - 4.90 M/uL 11/08/2021 7:01 AM [facility] HEMOGLOBIN 10.7(L) 11.8 - 14.8 g/dL 11/08/2021 7:01 AM [facility] HEMATOCRIT 32.9(L) 35.5 - 44.0 % 11/08/2021 7:01 AM [facility] MCV 86.0 82.0 - 99.0 fL 11/08/2021 7:01 AM [facility] MCH 28.0 27.8 - 34.5 pg 11/08/2021 7:01 AM [facility] MCHC 32.6 32.5 - 35.5 g/dL 11/08/2021 7:01 AM [facility] RDW 18.8(H) 11.5 - 14.5 % 11/08/2021 7:01 AM [facility] PLATELETS 270 160 - 420 K/uL 11/08/2021 7:01 AM [facility] MPV 8.6(L) 8.7 - 12.7 fL 11/08/2021 7:01 AM [facility] NEUTROPHILS 53 % 11/08/2021 7:01 AM CDT [facility] LYMPHOCYTES 35 % 11/08/2021 7:01 AM CDT [facility] MONOCYTES 12 % 11/08/2021 7:01 AM CDT [facility] EOSINOPHILS 1 % 11/08/2021 7:01 AM CDT [facility] BASOPHILS 0 % 11/08/2021 7:01 AM CDT [facility] NEUTROPHIL ABSOLUTE 2.10 1.90 - 7.00 K/uL 11/08/2021 7:01 AM CDT [facility] LYMPHOCYTE ABSOLUTE 1.30 0.70 - 4.50 K/uL 11/08/2021 7:01 AM CDT [facility] - [facility] MONOCYTE ABSOLUTE 0.40 0.10 - 1.30 K/uL 11/08/2021 7:01 AM CDT [facility] - [facility] EOSINOPHIL ABSOLUTE 0.00 0.00 - 0.70 K/uL 11/08/2021 7:01 AM CDT [facility] - [facility] BASOPHILS ABSOLUTE 0.00 0.00 - 0.20 K/uL 11/08/2021 7:01 AM CDT [facility] Blood 11/08/2021 4:30 AM CDT 11/08/2021 6:30 AM CDT us Kristin Llanos MD HEMATOLOGY ORDERABLES Final Resu lt [facility] CLIA# [id number] [place] [address] * (ABNORMAL) BASIC METABOLIC PANEL (11/08/2021 4:30 AM CDT) SODIUM 139 136 - 145 mmol/L 11/08/2021 7:28 AM CDT [facility] POTASSIUM 3.1(L) 3.4 - 5.1 mmol/L 11/08/2021 7:28 AM T [facility] CHLORIDE 102 98 - 107 mmol/L 11/08/2021 7:28 AM CDT [facility] CO2 24 22 - 29 mmol/L 11/08/2021 7:28 AM CDT [facility] CALCIUM 9.0 8.6 - 10.4 mg/dL 11/08/2021 7:28 AM CDT [facility] BUN 15 6 - 20 mg/dL 11/08/2021 7:28 AM CDT [facility] CREATININE 0.17(L) 0.51 - 0.95 mg/dL 11/08/2021 7:28 AM CDT [facility] GLUCOSE 113(H) 74 - 99 mg/dL 11/08/2021 7:28 AM CDT [facility] GFR >60 >=60 mL/min/1.7 3 sq meter 11/08/2021 7:28 AM CDT [facility] Comment:eGFR calculated with 2020 CKD-EPI equation. Vegetarian diet, extremely high or low muscle mass, and may affect results. Cystatin C with Glomerular Filtration Rate is a suitable alternative for these patients. ANION GAP 13 8 - 16 mmol/L 11/08/2021 7:28 AM CDT [facility] Blood 11/08/2021 4:30 AM CDT 11/08/2021 6:30 AM CDT Kristin Llanos MD CHEMISTRY ORDERABLES Final Resul t [facility] [employer] [facility] CLIA# [id number] [address] [place] [address] documented in this encounter Visit Diagnoses Not on filedocumented in this encounter Additional Health Concerns Infection Onset Date Last Indicated Resolved Time R/O C. 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
--- OUTSIDE RECORDS SUMMARY | 2024-11-10 01:33 | XMS_ITS | Continuity of Care Document ---
Author Organization Formerly [facility]. If a dditional information is needed, contact Health Information Management at [phone] Address [address] [place] [address] Phone Care Team Providers Care Microwave Supervisor Name Role Phone Unavailable Unavailable Unavailable Unavailable Unavailable Unavailable Unavailable Unavailable Unavailable Unavailable Unavailable Unavailable Unavailable Unavailable Unavailable Unavailable Unavailable Unavailable Problems Urinary tract infectious dis ease Onset:19-Sep-2024 Allen Espino MD Urinary catheter in situ Onset:19-Sep-2024 Allen Espino MD Allergies and Adverse Reactions No Known Drug Allergies(Patrice rgy) Onset: 19-Sep-2024 Medications cefTRIAXone 1000 MG Injection;1000 MILLIGRAM X1ED Quantity:1 Allen Espino MD Start:[id number]:2024 Comments:[id number] lidocaine hydrochloride 10 MG/ML Injectable Solution [Xylocaine];[id number] shoaib Administration Instructions:1 GM ROCEPHIN = 2.1 ML (350 MG/ML)2 GM ROCEPHIN = 4.2 ML (350 MG/ML) Quantity:0 Allen Espino MD Start:19-Sep-2024 Status:Discontinued Comments:[id number] Administration Instructions:1 GM ROCEPHIN = 2.1 ML (350 MG/ML)2 GM ROCEPHIN = 4.2 ML (350 MG/ML) Procedures INSERT BLADDER CATHETER Date:19-Sep-2024 Social History Smoking Status Tobacco smoking consumption unknown Recorded: Results 1 Ordered On:19-Sep-2024 Comments: Indication for Culture: Sx,w/abn UA [id number]&[id number]>5 23-Sep-2024 07:57 Urine Culture Urinalysis Automated Ordered On:19-Sep-2024 Comm ents:[facility], [address], [place], [address], 19-Sep-2024 12:21 Urine BilirubinNegative Range: Negative Urine Blood3+(Abnormal) Range:Ne gative Urine ClaritySlightl y Cloudy(Abnormal) Range:Clear Urine ColorYellow Range:Yellow Comments:Substances that cause abnormal urine color may affect thereadability of test pads on the urinalysis reagent strips.These substances include visible levels of blood orbilirubin and drugs containing dyes, nitrofurantoin, orriboflavin. Urine GlucoseNegativemg/dL Range :Negative mg/dL Urine KetonesNegativemg/dL Range :Negative mg/dL Urine Leukocyte Esterase1+(Abnormal) Range:Negative Urine NitritePositive(Abnormal) Range:Negative Urine pH7.0(Normal) Range:5-8 Urine Protein2+(Abnormal) Range: Negative Urine Specific Gravity1.020(Normal) Range:1.001-1.035 Urine Urobilinogen1.0{E.U./dL}(Abnorm al) Range:0.2 E.U./dL Vital Signs 19-Sep-2024 11:56 Liywicstkhb25.1f Comments:98.1 Pulse62/min Comments:62 Respiratory Rate16/min Comments: 16 O2 GUL484% Comments:100 BP [id number][Hg] Comments:10 8 BP Vlhgngwrs96sz[Hg] Comments:67 Oxygen delivery devices: Comment s:Room air Height5.90867451[ft_us] Comments :5 Gtvgho33.818kg Comments:31.818 19-Sep-2024 11:56 BMI13.2kg/m2 Comments:13.2 Encounters Emergency Encounter Reason:CATHERDAL Encounter Diagnosis:Urinary tract infection, site not specified,Encounter for fitting and adjustment of urinary device 19-Sep-2024 11:[id number] 12:00 [facility] Discharge Disposition:Discharged to home or self care (routine discharge) Allen Espino MD-19-Sep-2024 [facility])EMERGENCY PROVIDER REPORTREPORT#:[id number] REPORT STATUS: SignedDATE:09/19/24 TIME: 1156PATIENT: GEORGE CASTILLO UNIT #: [id number]#: [id number] ROOM/BED:: 75 AGE: 49 SEX: F PCP PHYS: Undefined ProviderSERVICE AUTHOR: Shira Villa MD* ALL edits or amendments must be made on the electronic/computer document *HPI-General IllnessFree Text HPI NotesFree Text HPI NotesPatient is a 49-year-old female with a history of indwelling catheter who is bed-bound and her was cleaning her up after a bowel movement, when thecatheter came out. She is here for catheter replacement. No pain, bleeding.GeneralInitial Greet Date/Time 09/19/24 1141PresentationChief Complaint Catheter replacementReview of SystemsROS StatementsAll systems rev neg except as marked.Free Text ROS NotesFree Text ROS NotesSee HPIPast Medical History - AdultStated Complaint CATHERDALAllergiesCoded Allergies:No Known Drug Allergies (09/19/24)Physical ExamVital SignsVital SignsFirst Documented: Result Date Time Pulse Ox 100 09/19 1156 B/P 108/67 09/19 1156 O2 Delivery Room air 09/19 1156 Temp 36.7 09/19 1156 Pulse 62 09/19 1156 Resp 16 09/19 1156Last Documented: Result Date Time Pulse Ox 100 09/19 1156 B/P 108/67 09/19 1156 O2 Delivery Room air 09/19 1156 Temp 36.7 09/19 1156 Pulse 62 09/19 1156 Resp 16 09/19 1156Review of Vital Signs ReviewedBasic Physical ExamBasic PE GEN: Well appearing/NAD, HEAD: Atraumatic/NC, RESP: No resp distress,SKIN: No rashes, warm/dryFree Text PE NotesFree Text PE NotesPt has flexion contractures in her upper and lower ext.Interpretation DiagnosticsLab Results InterpretationResultsLaboratory Tests: 09/19 1218 Urines POC Urine Color (Yellow) Yellow POC Urine Appearance (Clear) Slightly Cloudy A POC Urine pH (5.0 - 8.0) 7.0 POC Ur Specif [place] (1.001 - 1.035) 1.020 POC Urine Protein (Negative) 2+ H POC Ur Glucose (UA) (Negative mg/dL) Negative POC Urine Ketones (Negative mg/dL) Negative POC Urine Blood (Negative) 3+ H POC Urine Nitrite (Negative) Positive H POC Urine Bilirubin (Negative) Negative POC Urine Urobilinogen (0.2 E.U./dL) 1.0 H POC U Leukocyte Esteras (Negative) 1+ HMicrobiology: Date/Time Procedure - Status Source Growth 09/19 1223 Urine Culture - ORD UrineRe- Evaluation MDMED CourseMedication(s) OrderedMedication(s) Ordered:Anti-Infective Agents Sig/Adelita Start time Last Medication Dose Route Stop Time Status Admin Ceftriaxone Sodium 1,000 MG X1ED ONE 09/19 1230 DC 09/19 IM 09/19 1231 1231Local Anesthetics (Parenteral) Sig/Adelita Start time Last Medication Dose Route Stop Time Status Admin Lidocaine HCl 0 ASDIR PRN 09/19 1230 DCD 09/19 INJ 1231Patient Discharge DepartureVital Signs/ConditionVital SignsFirst Documented: Result Date Time Pulse Ox 100 09/19 1156 B/P 108/67 09/19 1156 O2 Delivery Room air 09/19 1156 Temp 36.7 09/19 1156 Pulse 62 09/19 1156 Resp 16 09/19 1156Last Documented: Result Date Time Pulse Ox 100 09/19 1156 B/P 108/67 09/19 1156 O2 Delivery Room air 09/19 1156 Temp 36.7 09/19 1156 Pulse 62 09/19 1156 Resp 16 09/19 1156All vital signs available at the time of this entry have been reviewed.Condition StableClinical ImpressionClinical ImpressionPrimary Impression: Encounter for Portillo catheter replacementSecondary Impressions: UTI (urinary tract infection)Disposition DecisionDischarge )( Discharged to Home Yes )( Time 1158 )( Date 09/19/24Discharge/Care PlanCounseled Regarding Diagnosis, Need for follow-up, When to return to ED(Auto) PrescriptionsCurrent Visit ScriptsAMOXICILLIN/CLAVULANATE K 875/125 MG (AUGMENTIN 875/125 MG) 875 MG PO BID 10 Days #20 TABPatient Instructions Indwelling Urinary Catheter Care, AdultAdditional InstructionsA urine culture was sent and will come back in 2-3 days, we will call you if weneed to change your antibiotics. If you develop any fever/chills/body aches/nausea/vomiting, return to the ER.ReferralsPCP Referral: Undefined Provider at 1650RPT #: [id number] OF REPORT Plan of Treatment A urine culture was sent and will come back in 2-3 days, we will call you if we need to change your antibiotics. If you develop any fever/chills/body aches/ nausea/vomiting, return to the ER. Future Tests Future scheduled test information is unavailable Pending Tests Test Name Ordered Date Scheduled Date Urine Culture September 19, 2024 12:23pm Future Visits Future appointment information is unavailable Referrals to Other Providers Referral information is unavailable Future Procedures Future procedure information is unavailable Future Medications Future medication information is unavailable Patient Instructions Instruction Admit Date Indwelling Urinary Catheter Care, Adult September 19, 2024 11:32am Assessments Diagnosis Onset Date Resolution Status Admit Date Encounter for Portillo catheter replacement Active September 19, 2024 1 1:32am UTI (urinary tract infection) Active September 19, 2024 11:32am
--- OUTSIDE RECORDS SUMMARY | 2024-11-10 01:33 | XMS_ITS | Clinical Summary ---
Author Organization [facility] Address [address] [place] [address] Care Team Providers Care Publication Specialist Name Role Phone Unavailable Primary Care Provider Unavailabl e Source Comments [facility],non-owned Affiliates and Associated Physician Practices is amultiple site organization consisting of ambulatory clinics and hospital sitesin [place], [place], [place] and [place]. This disclosure is being madepursuant to the Care Everywhere program and may not contain all information available regarding this patient. Last updated 18.[facility] Allergies No known active allergies Medications * Be aware that medications may not be up to date on this document. Alwaysverify current medications with the patient. midodrine (Proamatine) 5 MG tablet Take 2 (two) tablets by mouth 3 times daily 4 Active gabapentin (Neurontin) 300 MG capsule Take 1 (one) capsule by mouth 3 times daily 4 Active gentamicin (Garamycin) 0.1 % cream Apply 1 Application to affected area once daily 4 Active escitalopram (Lexapro) 10 MG tablet Take 1 (one) tablet by mouth once daily 4 Active atorvastatin (Lipitor) 40 MG tablet Take 1 (one) tablet by mouth once daily 4 Active aspirin (Aspirin) 81 MG chew tablet Take 1 (one) tablet by mouth once daily 4 Active fludrocortisone (Florinef) 0.1 MG tablet Take 1 (one) tablet by mouth once daily 4 Active Active Problems Problem Noted Date Diagnosed Date Primary hypertension 07/11/2024 Social History Tobacco Use Types Packs/Day Years Used Date Smoking Tobacco: Never Assessed Comments Unknown Sex and Gender Information Value Date Recorded Sex Assigned at Not on file Legal Sex Female 6:32 AM TRADE MANAGER Gender Identity Female 06/01/2024 10:40 AM TRADE MANAGER Sexual Orientation Not on file Last Filed Vital Signs Vital Sign Reading Time Taken Comments Blood Pressure 130/69 05/31/2024 10:35 AM TRADE MANAGER Pulse 50 05/31/2024 10:35 AM TRADE MANAGER Temperature 36.2 C (97.2 F) 05/31/2024 10:35 AM TRADE MANAGER Respiratory Rate 16 05/31/2024 10:35 AM TRADE MANAGER Oxygen Saturation - - Inhaled Oxygen Concentration - - Weight - - Height - - Body Mass Index - - Plan of Treatment Health Maintenance Due Date Last Done Comments COLOGUARD (AGES 45-75) - COLON CA SCREENING 1975 COLON MONITORING 1975 COLONOSCOPY - COLON CA SCREENING 1975 CT COLONOGRAPHY - COLON CA SCREENING 1975 Colorectal Cancer Screening 1975 FIT - COLON CA SCREENING 1975 FLEX SIG - COLON CA SCREENING 1975 HIV SCREENING 1990 HEPATITIS C SCREENING 04/26/1993 DTAP/TDAP/TD VACCINES (1 - Tdap) 1994 HEPATITIS B VACCINE (1 of 3 - 19+ 3-dose series) 1994 PAP SMEAR 1996 COVID-19 VACCINE (2 - season) 2024 03/03/2021 DEPRESSION SCREENING 05/03/2024 INFLUENZA VACCINE (#1) 2025 ZOSTER VACCINE (1 of 2) 2025 MAMMOGRAM 07/19/2025 07/20/2023, 04/0 12/2020, 11/29/2018, Additional history exists HIB VACCINE Aged Out No longer eligi ble based on patient's age to complete this topic HPV VACCINE Aged Out No longer eligi ble based on patient's age to complete this topic MENINGOCOCCAL (Group B) VACCINE SHARED DECISION-MAKING Aged Out No longer eligible based on patient's age to complete this topic MENINGOCOCCAL GROUPS A/C/Y/W VACCINE Aged Out No longer eligible based on patient's age to complete this topic Insurance [facility] [place] - [place] Member Subscriber Plan / Payer (Ef fective 2024-Present) Name:Rosario, Mis S Relation to Subscriber:Self Name:Mis Rosario Payer ID:Not on file Group ID:Not on file Type:Medicaid [place] Address: [address] [address] * Guarantor: NGUYỄN ROSARIO Account Type Relation to Patient Date of Phone Billing Address Personal/Family Spouse [facility] [place] [place] * Guarantor: NGUYỄN ROSARIO Account Type Relation to Patient Date of Phone Billing Address Personal/Family Spouse
--- OUTSIDE RECORDS SUMMARY | 2024-11-10 01:33 | XMS_ITS | Encounter Summary ---
Author Organization [facility] Address [address] [place] [address] Care Team Providers Care Switch Tender Name Role Phone eJnnie Cantu MD Primary Care Provider [phone] Encounter Details Date Type Department Care Team (Late st Contact Info) Description 11/20/2021 Lab Requisition [facility] [address] [place] [address] [place] [address] [place] [address] Social History Tobacco Use Types [...] Associated Diagnosis Comments CBC WITH DIFFERENTIAL Routine 11/20/2021 2:20 AM CDT BASIC METABOLIC PANEL Routine 11/20/2021 2:20 AM CDT documented in this encounter Results * (ABNORMAL) CBC WITH DIFFERENTIAL (11/20/2021 2:20 AM CDT) WBC 9.7 4.5 - 10.5 K/uL 11/20/2021 3:52 AM CDT [facility] RBC 3.94 3.90 - 4.90 M/uL 11/20/2021 3:52 AM CDT [facility] HEMOGLOBIN 11.2(L) 11.8 - 14.8 g/dL 11/20/2021 3:52 AM CDT [facility] HEMATOCRIT 33.5(L) 35.5 - 44.0 % 11/20/2021 3:52 AM CDT [facility] MCV 85.1 82.0 - 99.0 fL 11/20/2021 3:52 AM CDT [facility] MCH 28.4 27.8 - 34.5 pg 11/20/2021 3:52 AM CDT [facility] MCHC 33.4 32.5 - 35.5 g/dL 11/20/2021 3:52 AM CDT [facility] RDW 18.6(H) 11.5 - 14.5 % 11/20/2021 3:52 AM CDT [facility] PLATELETS 438(H) 160 - 420 K/uL 11/20/2021 3:52 AM CDT [facility] MPV 8.6(L) 8.7 - 12.7 fL 11/20/2021 3:52 AM CDT [facility] NEUTROPHILS 68 % 11/20/2021 3:52 AM CDT [facility] LYMPHOCYTES 21 % 11/20/2021 3:52 AM CDT [facility] MONOCYTES 9 % 11/20/2021 3:52 AM CDT [facility] EOSINOPHILS 2 % 11/20/2021 3:52 AM CDT [facility] BASOPHILS 1 % 11/20/2021 3:52 AM CDT [facility] NEUTROPHIL ABSOLUTE 6.50 1.90 - 7.00 K/uL 11/20/2021 3:52 AM CDT [facility] LYMPHOCYTE ABSOLUTE 2.00 0.70 - 4.50 K/uL 11/20/2021 3:52 AM CDT [facility] - [facility] MONOCYTE ABSOLUTE 0.80 0.10 - 1.30 K/uL 11/20/2021 3:52 AM CDT [facility] - [facility] EOSINOPHIL ABSOLUTE 0.20 0.00 - 0.70 K/uL 11/20/2021 3:52 AM CDT [facility] - [facility] BASOPHILS ABSOLUTE 0.10 0.00 - 0.20 K/uL 11/20/2021 3:52 AM CDT [facility] Blood 11/20/2021 2:20 AM CDT 11/20/2021 3:43 AM CDT Kristin Llanos MD HEMATOLOGY ORDERABLES Final Resu lt [facility] CLIA# [id number] [place] [address] * (ABNORMAL) BASIC METABOLIC PANEL (11/20/2021 2:20 AM CDT) SODIUM 140 136 - 145 mmol/L 11/20/2021 4:17 AM CDT [facility] POTASSIUM 3.8 3.4 - 5.1 mmol/L 11/20/2021 4:17 AM CDT [facility] CHLORIDE 103 98 - 107 mmol/L 11/20/2021 4:17 AM CDT [facility] CO2 25 22 - 29 mmol/L 11/20/2021 4:17 AM CDT [facility] CALCIUM 9.1 8.6 - 10.4 mg/dL 11/20/2021 4:17 AM CDT [facility] BUN 12 6 - 20 mg/dL 11/20/2021 4:17 AM CDT [facility] CREATININE 0.17(L) 0.51 - 0.95 mg/dL 11/20/2021 4:17 AM CDT [facility] GLUCOSE 90 74 - 99 mg/dL 11/20/2021 4:17 AM CDT [facility] GFR >60 >=60 mL/min/1.7 3 sq meter 11/20/2021 4:17 AM CDT [facility] Comment:eGFR calculated with 2020 CKD-EPI equation. Vegetarian diet, extremely high or low muscle mass, and may affect results. Cystatin C with Glomerular Filtration Rate is a suitable alternative for these patients. ANION GAP 12 8 - 16 mmol/L 11/20/2021 4:17 AM CDT [facility] Blood 11/20/2021 2:20 AM CDT 11/20/2021 3:43 AM CDT Kristin Llanos MD CHEMISTRY ORDERABLES Final Resul t [facility] CLIA# [id number] [place] [address] documented in this encounter Visit Diagnoses Not on filedocumented in this encounter Additional Health Concerns Infection Onset Date Last Indicated Resolved Time R/O C. diff 11/24/2021 11/25/2021 11/25/2021 12:4 1 PM CDT Multi Drug Resistant Organis m (MDRO) 11/25/2021 12/05/2021 Multi Drug Resistant Acinetobacter 12/05/20212021 documented as of this encounter Care Teams Switch Tender Relationship Specialty Start Date End Date Jennie Cantu MD PCP - General Family Practice 12/06/21 documented as of this encounter
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
--- OUTSIDE RECORDS SUMMARY | 2024-11-10 01:33 | XMS_ITS | Encounter Summary ---
Author Organization [facility] Address [address] [place] [address] Care Team Providers Care National Opelint Analyst Name Role Phone Jennie Cantu MD Primary Care Provider [phone] [phone] Encounter Details Date Type Department Care Team (Late st Contact Info) Description 09/26/2021 Lab Requisition [facility] Laboratory Services [id number] [place] [address] [facility], Protocol, [address] [place] [address] Social History Tobacco Use Types [...] was confirmed or suspected to have Coronavirus/COVID-19? No / Unsure 09/25/2021 7:06 PM CDT documented as of this encounter Plan of Treatment Not on file documented as of this encounter Procedures Procedure Name Priority Date/Time Associated Diagnosis Comments CBC WITH DIFFERENTIAL Routine 09/26/2021 3:40 AM CDT PTT Routine 09/26/2021 3:40 AM CDT PROTIME-INR Routine 09/26/2021 3:40 AM CDT PREALBUMIN Routine 09/26/2021 3:40 AM CDT COMPREHENSIVE METABOLIC PANEL Routine 09/26/2021 3:40 AM CDT documented in this encounter Results * PTT (09/26/2021 3:40 AM CDT) PTT 32.0 23.1 - 37.1 seconds 09/26/2021 7:36 AM CDT [facility] Blood Collection / Unknown 09/26/2021 3:40 AM CDT 09/26/2021 6:28 AM CDT Protocol [facility] MD HEMATOLOGY ORDERABLES Final Result [facility]# [id number] [place], [place] [id number] * PROTIME-INR (09/26/2021 3:40 AM CDT) PROTIME 13.7 11.5 - 14.7 Seconds 09/26/2021 7:36 AM CDT [facility] INR 1.0 0.9 - 1.1 09/26/2021 7:36 AM CDT [facility] Blood Collection / Unknown 09/26/2021 3:40 AM CDT 09/26/2021 6:28 AM CDT us Protocol [facility] MD HEMATOLOGY ORDERABLES Final Result [facility]# [id number] [place] [address] * PREALBUMIN (09/26/2021 3:40 AM CDT) PREALBUMIN 25 20 - 40 mg/dL 09/26/2021 11:15 AM CDT [facility] Blood Collection / Unknown 09/26/2021 3:40 AM CDT 09/26/2021 6:28 AM CDT us Protocol [facility] MD CHEMISTRY ORDERABLES Final Result [facility]# [id number] [address] [place] [address] * (ABNORMAL) CBC WITH DIFFERENTIAL (09/26/2021 3:40 AM CDT) Pathologist [facility] WBC 9.3 4.5 - 10.5 K/uL 09/26/2021 6:45 AM CDT [facility] RBC 2.95(L) 3.90 - 4.90 M/uL 09/26/2021 6:45 AM CDT [facility] HEMOGLOBIN 7.9(L) 11.8 - 14.8 g/dL 09/26/2021 6:45 AM CDT [facility] HEMATOCRIT 24.2(L) 35.5 - 44.0 % 09/26/2021 6:45 AM CDT [facility] MCV 82.0 82.0 - 99.0 fL 09/26/2021 6:45 AM CDT [facility] MCH 26.6(L) 27.8 - 34.5 pg 09/26/2021 6:45 AM CDT [facility] MCHC 32.4(L) 32.5 - 35.5 g/dL 09/26/2021 6:45 AM CDT [facility] RDW 16.7(H) 11.5 - 14.5 % 09/26/2021 6:45 AM CDT [facility] PLATELETS 450(H) 160 - 420 K/uL 09/26/2021 6:45 AM CDT [facility] MPV 7.5(L) 8.7 - 12.7 fL 09/26/2021 6:45 AM CDT [facility] NEUTROPHILS 75 % 09/26/2021 6:45 AM CDT [facility] LYMPHOCYTES 17 % 09/26/2021 6:45 AM CDT [facility] SERVICES [facility] MONOCYTES 7 % 09/26/2021 6:45 AM CDT [facility] SERVICES [facility] EOSINOPHILS 1 % 09/26/2021 6:45 AM CDT [facility] SERVICES [facility] BASOPHILS 0 % 09/26/2021 6:45 AM CDT [facility] SERVICES [facility] NEUTROPHIL ABSOLUTE 7.00 1.90 - 7.00 K/uL 09/26/2021 6:45 AM CDT [facility] LYMPHOCYTE ABSOLUTE 1.60 0.70 - 4.50 K/uL 09/26/2021 6:45 AM CDT [facility]OR[facility]ORY SERVICES [facility] MONOCYTE ABSOLUTE 0.60 0.10 - 1.30 K/uL 09/26/2021 6:45 AM CDT [facility] SERVICES [facility] EOSINOPHIL ABSOLUTE 0.10 0.00 - 0.70 K/uL 09/26/2021 6:45 AM CDT [facility] LABORATORY SERVICES [facility] BASOPHILS ABSOLUTE 0.00 0.00 - 0.20 K/uL 09/26/2021 6:45 AM CDT [facility] SERVICES [facility] Blood Collection / Unknown 09/26/2021 3:40 AM CDT 09/26/2021 6:28 AM CDT us Protocol [facility] MD HEMATOLOGY ORDERABLES Final Result [facility] CLIA# [id number] [address] [place] [address] * (ABNORMAL) COMPREHENSIVE METABOLIC PANEL (09/26/2021 3:40 AM CDT) SODIUM 138 136 - 145 mmol/L 09/26/2021 7:08 AM CDT [facility] POTASSIUM 2.9(L) 3.4 - 5.1 mmol/L 09/26/2021 7:08 AM CDT [facility] CHLORIDE 103 98 - 107 mmol/L 09/26/2021 7:08 AM [facility] CO2 25 22 - 29 mmol/L 09/26/2021 7:08 AM [facility] CALCIUM 8.8 8.6 - 10.4 mg/dL 09/26/2021 7:08 AM [facility] BUN 25(H) 6 - 20 mg/dL 09/26/2021 7:08 AM [facility] CREATININE 0.24(L) 0.51 - 0.95 mg/dL 09/26/2021 7:08 AM [facility] GLUCOSE 76 74 - 99 mg/dL 09/26/2021 7:08 AM [facility] TOTAL PROTEIN 5.9(L) 6.3 - 8.7 g/dL 09/26/2021 7:08 AM [facility] ALBUMIN 3.0(L) 3.5 - 5.2 g/dL 09/26/2021 7:08 AM [facility] BILIRUBIN TOTAL 0.2(L) 0.3 - 1.2 mg/dL 09/26/2021 7:08 AM [facility] ALKALINE PHOSPHATASE 60 40 - 150 U/L 09/26/2021 7:08 AM [facility] AST 24 0 - 33 U/L 09/26/2021 7:08 AM [facility] ALT 39(H) 0 - 33 U/L 09/26/2021 7:08 AM [facility] GFR >60 >=60 mL/min/1.7 3 sq meter 09/26/2021 7:08 AM [facility] Comment:eGFR calculated with 2020 CKD-EPI equation. Vegetarian diet, extremely high or low muscle mass, and may affect results. Cystatin C with Glomerular Filtration Rate is a suitable alternative for these patients. ANION GAP 10 8 - 16 mmol/L 09/26/2021 7:08 AM [facility] Blood Collection / Unknown 09/26/2021 3:40 AM CDT 09/26/2021 6:28 AM CDT us Protocol [facility] MD CHEMISTRY ORDERABLES Final Result [facility] CLIA# [id number] [address] [place] [address] documented in this encounter Visit Diagnoses Not on filedocumented in this encounter Additional Health Concerns Infection Onset Date Last Indicated Resolved Time R/O C. diff 11/24/2021 11/25/2021 11/25/2021 12:4 1 PM CDT Multi Drug Resistant Organis m (MDRO) 11/25/2021 12/05/2021 Multi Drug Resistant Acinetobacter 12/05/20212021 documented as of this encounter Care Teams National Opelint Analyst Relationship Specialty Start Date End Date Jennie Cantu MD PCP - General Family Practice 12/06/21 documented as of this encounter
--- OUTSIDE RECORDS SUMMARY | 2024-11-10 01:33 | XMS_ITS | Encounter Summary ---
Author Organization [facility] Address [address] [place] [address] Care Team Providers Care Emissions Technician Name Role Phone Jennie Cantu MD Primary Care Provider [phone] [phone] Encounter Details Date Type Department Care Team (Late st Contact Info) Description 10/06/2021 Lab Requisition [facility] Laboratory Services [address] [place] [address] [place] [address] [place] [address] Social History Tobacco Use Types [...] Associated Diagnosis Comments CBC WITH DIFFERENTIAL Routine 10/06/2021 3:00 AM CDT BASIC METABOLIC PANEL Routine 10/06/2021 3:00 AM CDT documented in this encounter Results * (ABNORMAL) CBC WITH DIFFERENTIAL (10/06/2021 3:00 AM CDT) Pathologist [facility] WBC 6.1 4.5 - 10.5 K/uL 10/06/2021 7:37 AM CDT [facility] RBC 2.95(L) 3.90 - 4.90 M/uL 10/06/2021 7:37 AM CDT [facility] HEMOGLOBIN 8.1(L) 11.8 - 14.8 g/dL 10/06/2021 7:[facility] HEMATOCRIT 25.6(L) 35.5 - 44.0 % 10/06/2021 7:37 AM CDT [facility] MCV 86.9 82.0 - 99.0 fL 10/06/2021 7:37 AM CDT [facility] MCH 27.5(L) 27.8 - 34.5 pg 10/06/2021 7:37 [facility] MCHC 31.6(L) 32.5 - 35.5 g/dL 10/06/2021 7:37 AM CDT [facility] RDW 20.3(H) 11.5 - 14.5 % 10/06/2021 7:37 AM CDT [facility] PLATELETS 371 160 - 420 K/uL 10/06/2021 7:37 [facility] MPV 7.4(L) 8.7 - 12.7 fL 10/06/2021 7:37 AM [facility] NEUTROPHILS 70 % 10/06/2021 7:37 AM CDT [facility] LYMPHOCYTES 22 % 10/06/2021 7:37 AM CDT [facility] MONOCYTES 7 % 10/06/2021 7:37 AM CDT [facility] EOSINOPHILS 1 % 10/06/2021 7:37 AM CDT [facility] BASOPHILS 0 % 10/06/2021 7:37 AM CDT [facility] NEUTROPHIL ABSOLUTE 4.20 1.90 - 7.00 K/uL 10/06/2021 7:37 AM CDT [facility] LYMPHOCYTE ABSOLUTE 1.30 0.70 - 4.50 K/uL 10/06/2021 7:37 AM CDT [facility] LABORATORY SERVICES - [facility] MONOCYTE ABSOLUTE 0.40 0.10 - 1.30 K/uL 10/06/2021 7:37 AM CDT [facility] LABORATORY SERVICES - [facility] EOSINOPHIL ABSOLUTE 0.10 0.00 - 0.70 K/uL 10/06/2021 7:37 AM CDT [facility] LABORATORY SERVICES - [facility] BASOPHILS ABSOLUTE 0.00 0.00 - 0.20 K/uL 10/06/2021 7:37 AM CDT [facility] LABORATORY SERVICES [facility] Blood Collection / Unknown 10/06/2021 3:00 AM CDT 10/06/2021 7:24 AM CDT us Kristin Llanos MD HEMATOLOGY ORDERABLES Final Resu lt [facility] CLAK# [id number] [place] [address] * (ABNORMAL) BASIC METABOLIC PANEL (10/06/2021 3:00 AM CDT) SODIUM 141 136 - 145 mmol/L 10/06/2021 7:57 AM CDT [facility] POTASSIUM 3.5 3.4 - 5.1 mmol/L 10/06/2021 7:57 AM CDT [facility] LABORATORY SERVICES [facility] CHLORIDE 105 98 - 107 mmol/L 10/06/2021 7:57 AM CDT [facility] LABORATORY SERVICES [facility] CO2 24 22 - 29 mmol/L 10/06/2021 7:57 AM CDT [facility] LABORATORY SERVICES [facility] CALCIUM 8.7 8.6 - 10.4 mg/dL 10/06/2021 7:57 AM CDT [facility] BUN 13 6 - 20 mg/dL 10/06/2021 7:57 AM CDT [facility] LABORATORY SERVICES [facility] CREATININE 0.17(L) 0.51 - 0.95 mg/dL 10/06/2021 7:57 AM CDT [facility] LABORATORY SERVICES [facility] GLUCOSE 81 74 - 99 mg/dL 10/06/2021 7:57 AM CDT [facility]ORY [facility] GFR >60 >=60 mL/min/1.7 3 sq meter 10/06/2021 7:57 AM T [facility] Comment:eGFR calculated with 2020 CKD-EPI equation. Vegetarian diet, extremely high or low muscle mass, and may affect results. Cystatin C with Glomerular Filtration Rate is a suitable alternative for these patients. ANION GAP 12 8 - 16 mmol/L 10/06/2021 7:57 AM CDT [facility] Blood Collection / Unknown 10/06/2021 3:00 AM CDT 10/06/2021 7:24 AM CDT Kristin Llanos MD CHEMISTRY ORDERABLES Final Resul t [facility] CLIA# [id number] [address] [place] [address] documented in this encounter Visit Diagnoses Not on filedocumented in this encounter Additional Health Concerns Infection Onset Date Last Indicated Resolved Time R/O C. diff 11/24/2021 11/25/2021 11/25/2021 12:4 1 PM CDT Multi Drug Resistant Organis m (MDRO) 11/25/2021 12/05/2021 Multi Drug Resistant Acinetobacter 12/05/20212021 documented as of this encounter Care Teams Emissions Technician Relationship Specialty Start Date End Date Jennie Cantu MD PCP - General Family Practice 12/06/21 documented as of this encounter
--- OUTSIDE RECORDS SUMMARY | 2024-11-10 01:33 | XMS_ITS | Encounter Summary ---
Author Organization [facility] Address [address] [place] [address] Care Team Providers Care C.O.D. Clerk Name Role Phone Jennie Cantu MD Primary Care Provider [phone] Encounter Details Date Type Department Care Team (Late st Contact Info) Description 11/17/2021 Lab Requisition [facility] Laboratory Services [address] [place] [address] [place] [address] [place] [address] Social History Tobacco Use Types [...] Associated Diagnosis Comments CBC WITH DIFFERENTIAL Routine 11/17/2021 4:35 AM CDT BASIC METABOLIC PANEL Routine 11/17/2021 4:35 AM CDT documented in this encounter Results * (ABNORMAL) CBC WITH DIFFERENTIAL (11/17/2021 4:35 AM CDT) WBC 9.8 4.5 - 10.5 K/uL 11/17/2021 9:01 [facility] RBC 4.04 3.90 - 4.90 M/uL 11/17/2021 9:01 AM [facility] HEMOGLOBIN 11.5(L) 11.8 - 14.8 g/dL 11/17/2021 9:01 AM [facility] HEMATOCRIT 34.7(L) 35.5 - 44.0 % 11/17/2021 9:01 AM [facility] MCV 86.0 82.0 - 99.0 fL 11/17/2021 9:01 AM CDT [facility] MCH 28.5 27.8 - 34.5 pg 11/17/2021 9:01 AM [facility] MCHC 33.2 32.5 - 35.5 g/dL 11/17/2021 9:01 AM [facility] RDW 19.3(H) 11.5 - 14.5 % 11/17/2021 9:01 AM CDT [facility] PLATELETS 424(H) 160 - 420 K/uL 11/17/2021 9:01 AM [facility] MPV 8.5(L) 8.7 - 12.7 fL 11/17/2021 9:01 AM [facility] NEUTROPHILS 67 % 11/17/2021 9:01 AM CDT [facility] LYMPHOCYTES 22 % 11/17/2021 9:01 AM CDT [facility] MONOCYTES 8 % 11/17/2021 9:01 AM CDT [facility] EOSINOPHILS 3 % 11/17/2021 9:01 AM CDT [facility] BASOPHILS 1 % 11/17/2021 9:01 AM CDT [facility] NEUTROPHIL ABSOLUTE 6.50 1.90 - 7.00 K/uL 11/17/2021 9:01 AM CDT [facility] LYMPHOCYTE ABSOLUTE 2.10 0.70 - 4.50 K/uL 11/17/2021 9:01 AM CDT [facility] LABORATORY SERVICES [facility] MONOCYTE ABSOLUTE 0.80 0.10 - 1.30 K/uL 11/17/2021 9:01 AM CDT [facility] LABORATORY SERVICES - [facility] EOSINOPHIL ABSOLUTE 0.30 0.00 - 0.70 K/uL 11/17/2021 9:01 AM CDT [facility] LABORATORY SERVICES [facility] BASOPHILS ABSOLUTE 0.10 0.00 - 0.20 K/uL 11/17/2021 9:01 AM CDT [facility] LAB[facility]ATORY SERVICES [facility] Blood Collection / Unknown 11/17/2021 4:35 AM CDT 11/17/2021 7:48 AM CDT Kristin Llanos MD HEMATOLOGY ORDERABLES Final Resu lt [facility]ORY [facility] CLIA# [id number] [place] [address] * (ABNORMAL) BASIC METABOLIC PANEL (11/17/2021 4:35 AM CDT) SODIUM 139 136 - 145 mmol/L 11/17/2021 9:15 AM CDT [facility] POTASSIUM 3.9 3.4 - 5.1 mmol/L 11/17/2021 9:15 AM CDT [facility] LAB[facility]ORY [facility] CHLORIDE 99 98 - 107 mmol/L 11/17/2021 9:15 AM CDT [facility] LABORATORY SERVICES [facility] CO2 27 22 - 29 mmol/L 11/17/2021 9:15 AM CDT [facility] LABORATORY SERVICES [facility] CALCIUM 9.7 8.6 - 10.4 mg/dL 11/17/2021 9:15 AM CDT [facility] LABORATORY SERVICES [facility] BUN 17 6 - 20 mg/dL 11/17/2021 9:15 AM CDT [facility] LABORATORY SERVICES [facility] CREATININE 0.20(L) 0.51 - 0.95 mg/dL 11/17/2021 9:15 AM CDT [facility] LABORATORY SERVICES [facility] GLUCOSE 78 74 - 99 mg/dL 11/17/2021 9:15 AM CDT [facility] GFR >60 >=60 mL/min/1.7 3 sq meter 11/17/2021 9:15 AM CDT [facility] Comment:eGFR calculated with 2020 CKD-EPI equation. Vegetarian diet, extremely high or low muscle mass, and may affect results. Cystatin C with Glomerular Filtration Rate is a suitable alternative for these patients. ANION GAP 13 8 - 16 mmol/L 11/17/2021 9:[address] [facility] Blood Collection / Unknown 11/17/2021 4:35 AM CDT 11/17/2021 7:48 AM CDT Kristin Llanos MD CHEMISTRY ORDERABLES Final Resul t [facility] CLIA# [id number] [place] [address] documented in this encounter Visit Diagnoses Not on filedocumented in this encounter Additional Health Concerns Infection Onset Date Last Indicated Resolved Time R/O C. 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 Clerk Relationship Specialty Start Date End Date Jennie Cantu MD PCP - General Family Practice 12/06/21 documented as of this encounter
--- OUTSIDE RECORDS SUMMARY | 2024-11-10 01:33 | XMS_ITS | Encounter Summary ---
Author Organization [facility] Address [address] [place] [address] Care Team Providers Care Fiction Writer Name Role Phone Jennie Cantu MD Primary Care Provider [phone] Encounter Details Date Type Department Care Team (Late st Contact Info) Description 10/09/2021 Lab Requisition [facility] Laboratory Services [address] [place] [address] [facility], External Provider [address] [place] [address] Social History Tobacco Use Types Packs/Day Years [...] Procedure Name Priority Date/Time Associated Diagnosis Comments C. DIFFICILE DETECTION Routine 10/09/2021 9:04 AM CDT documented in this encounter Results * C. DIFFICILE DETECTION (10/09/2021 9:04 AM CDT) TOXIGENIC C DIFFICILE NOT DETECTED Not Detected 10/10/2021 12:04 AM CDT [facility] Stool STOOL SPECIMEN / Unknown Collection / Unknown 10/09/2021 9:04 AM CDT 10/09/2021 11:18 PM CDT Narrative [facility] LABORATORY SERVICES [facility] - 10/10/2021 12:04 AM CDT This assay is used to detect Toxigenic C. difficile target(B gene) DNA sequences in unformed stool specimens. If toxigenic C. difficile is not detected, but clinical suspicion is high please consult ID for consultation and potential repeat testing. This test should not be used as a test of cure. External Provider [facility] MICROBIOLOGY - GENERAL OR DERABLES Final Result [facility] LABORATORY [facility] CLIA# [id number] [place] [address] documented in this encounter Visit Diagnoses Not on filedocumented in this encounter Additional Health Concerns Infection Onset Date Last Indicated Resolved Time R/O C. 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
--- OUTSIDE RECORDS SUMMARY | 2024-11-10 01:33 | XMS_ITS | Encounter Summary ---
Author Organization [facility] Address [address] [place] [address] Care Team Providers Care Steel Wheel Engraver Name Role Phone Jennie Cantu MD Primary Care Provider [phone] [phone] Encounter Details Date Type Department Care Team (Late st Contact Info) Description 10/09/2021 Lab Requisition [facility] Laboratory Services [address] [place] [address] [place] [address] [place] [address] Social History Tobacco Use Types [...] Associated Diagnosis Comments CBC WITH DIFFERENTIAL Routine 10/09/2021 3:16 AM CDT BRAIN NATRIURETIC PEPTIDE, BNP OR PROBNP Routine 10/09/2021 3:16 AM CDT BASIC METABOLIC PANEL Routine 10/09/2021 3:16 AM CDT documented in this encounter Results * (ABNORMAL) CBC WITH DIFFERENTIAL (10/09/2021 3:16 AM CDT) [facility] WBC 6.2 4.5 - 10.5 K/uL 10/09/2021 5:39 AM CDT [facility] LABORATORY [facility] RBC 3.31(L) 3.90 - 4.90 M/uL 10/09/2021 5:39 AM CDT [facility] HEMOGLOBIN 9.3(L) 11.8 - 14.8 g/dL 10/09/2021 5:39 AM CDT [facility] HEMATOCRIT 28.7(L) 35.5 - 44.0 % 10/09/2021 5:39 AM CDT [facility]OR[facility] MCV 86.7 82.0 - 99.0 fL 10/09/2021 5:39 AM CDT [facility]OR[facility] MCH 28.2 27.8 - 34.5 pg 10/09/2021 5:39 AM CDT [facility] LABORAT[facility] MCHC 32.5 32.5 - 35.5 g/dL 10/09/2021 5:39 AM CDT [facility]OR[facility] RDW 21.1(H) 11.5 - 14.5 % 10/09/2021 5:39 AM CDT [facility] LABOR[facility] PLATELETS 316 160 - 420 K/uL 10/09/2021 5:39 AM CDT [facility]OR[facility] MPV 6.9(L) 8.7 - 12.7 fL 10/09/2021 5:39 AM CDT [facility]OR[facility] NEUTROPHILS 71 % 10/09/2021 5:39 AM CDT [facility] LABOR[facility] LYMPHOCYTES 22 % 10/09/2021 5:39 AM CDT [facility] MONOCYTES 5 % 10/09/2021 5:39 AM CDT [facility] EOSINOPHILS 1 % 10/09/2021 5:39 AM CDT [facility] BASOPHILS 1 % 10/09/2021 5:39 AM CDT [facility] NEUTROPHIL ABSOLUTE 4.40 1.90 - 7.00 K/uL 10/09/2021 5:39 AM CDT [facility]ORAT[facility] LYMPHOCYTE ABSOLUTE 1.40 0.70 - 4.50 K/uL 10/09/2021 5:39 AM CDT [facility] MONOCYTE ABSOLUTE 0.30 0.10 - 1.30 K/uL 10/09/2021 5:39 AM CDT [facility]ORAT[facility] EOSINOPHIL ABSOLUTE 0.10 0.00 - 0.70 K/uL 10/09/2021 5:39 AM CDT [facility] LABORAT[facility] BASOPHILS ABSOLUTE 0.00 0.00 - 0.20 K/uL 10/09/2021 5:39 AM CDT [facility] Blood 10/09/2021 3:16 AM CDT 10/09/2021 5:07 AM CDT us Kristin Llanos MD HEMATOLOGY ORDERABLES Final Resu lt [facility] CLIA# [id number] [place] [address] * (ABNORMAL) BRAIN NATRIURETIC PEPTIDE, BNP OR PROBNP (10/09/2021 3:16 AM CDT) PROBNP, N TERMINAL 497(H) 0 - 450 pg/mL 10/09/2021 6:24 AM CDT [facility] Comment: Reference values for screening purposes based on manager games's recommendation: Patients less than 75 years: <125 pg/mL Patients 75 years and older: <450 pg/mL Reference values for determination of acute congestive heart failure in dyspneic patients based on PRIDE study (Am J Cardiol 2005;95:948): Patients less than 50 years: <450 pg/mL (Negative predictive value= 99%) Patients 50 years and older: <900 pg/mL (Negative predictive value= 92%) Rule out cutpoint, all ages: <300 pg/mL (Negative predictive value= 99%) Blood 10/09/2021 3:16 AM CDT 10/09/2021 5:07 AM CDT Kristin Llanos MD CHEMISTRY ORDERABLES Final Resul t [facility] CLIA# [id number] [place] [address] * (ABNORMAL) BASIC METABOLIC PANEL (10/09/2021 3:16 AM CDT) SODIUM 141 136 - 145 mmol/L 10/09/2021 6:24 AM CDT [facility] POTASSIUM 3.8 3.4 - 5.1 mmol/L 10/09/2021 6:24 AM CDT [facility] CHLORIDE 104 98 - 107 mmol/L 10/09/2021 6:24 AM CDT [facility] CO2 28 22 - 29 mmol/L 10/09/2021 6:24 AM T [facility] CALCIUM 9.0 8.6 - 10.4 mg/dL 10/09/2021 6:24 AM T [facility] BUN 14 6 - 20 mg/dL 10/09/2021 6:24 AM T [facility] CREATININE 0.17(L) 0.51 - 0.95 mg/dL 10/09/2021 6:24 AM T [facility] GLUCOSE 100(H) 74 - 99 mg/dL 10/09/2021 6:24 AM T [facility] GFR >60 >=60 mL/min/1.7 3 sq meter 10/09/2021 6:24 AM T [facility] Comment:eGFR calculated with 2020 CKD-EPI equation. Vegetarian diet, extremely high or low muscle mass, and may affect results. Cystatin C with Glomerular Filtration Rate is a suitable alternative for these patients. ANION GAP 9 8 - 16 mmol/L 10/09/2021 6:24 AM T [facility] Blood 10/09/2021 3:16 AM CDT 10/09/2021 5:07 AM CDT us Kristin Llanos MD CHEMISTRY ORDERABLES Final Resul t [facility] CLIA# [id number] [address] [place] [address] documented in this encounter Visit Diagnoses Not on filedocumented in this encounter Additional Health Concerns Infection Onset Date Last Indicated Resolved Time R/O C. diff 11/24/2021 11/25/2021 11/25/2021 12:4 1 PM CDT Multi Drug Resistant Organis m (MDRO) 11/25/2021 12/05/2021 Multi Drug Resistant Acinetobacter 12/05/20212021 documented as of this encounter Care Teams Steel Wheel Engraver Relationship Specialty Start Date End Date Jennie Cantu MD PCP - General Family Practice 12/06/21 documented as of this encounter
--- OUTSIDE RECORDS SUMMARY | 2024-11-10 01:33 | XMS_ITS | Encounter Summary ---
Author Organization [facility] Address [address] [place] [address] Care Team Providers Care Decorating Machine Tender Name Role Phone Jennie Cantu MD Primary Care Provider [phone] [phone] Encounter Details Date Type Department Care Team (Late st Contact Info) Description 09/28/2021 Lab Requisition [facility] Laboratory Services [address] [place] [address] [place] [address] [place] [address] Social History Tobacco Use Types [...] Diagnosis Comments EXTRA TUBE (URINE MOBLEY) Routine 09/28/2021 1:39 AM CDT URINALYSIS WITH REFLEX CULTURE Routine 09/28/2021 1:39 AM CDT URINE CULTURE Routine 09/28/2021 1:39 AM CDT documented in this encounter Results * URINE CULTURE (09/28/2021 1:39 AM CDT) CULTURE No growth at 24 hours 09/29/2021 1:50 PM CDT [facility] Health Informatics [facility] Urine URINE SPECIMEN OBTAINED BY CLEAN CATCH PROCEDURE / Unknown 09/28/2021 1:39 AM CDT 09/28/2021 5:34 AM CDT Kristin Llanos MD MICROBIOLOGY - GENERAL ORDERABLE S Final Result [facility] Health Informatics [facility] CLIA# [id number] [address] [place] [address] * EXTRA TUBE (URINE MOBLEY) (09/28/2021 1:39 AM CDT) Urine URINE SPECIMEN OBTAINED BY CLEAN CATCH PROCEDURE / Unknown 09/28/2021 1:39 AM CDT 09/28/2021 4:26 AM CDT Kristin Llanos MD URINE ORDERABLES Final Result Performing Organization Address City/[facility]/ZIP Co de Phone Number [facility] Health Informatics [facility] CLIA# [id number] [place] [address] * (ABNORMAL) URINALYSIS WITH REFLEX CULTURE (09/28/2021 1:39 AM CDT) COLOR UA Mandie(A) Pale to Dark Yellow 09/28/2021 5:34 AM CDT [facility] Health Informatics [facility] CLARITY UA Cloudy(A) Clear 09/28/2021 5:34 AM CDT [facility] Health Informatics [facility] SPECIFIC GRAVITY UA 1.014 1.003 - 1.035 09/28/2021 5:34 AM CDT [facility] Health Informatics [facility] PH UA 7.0 5.0 - 8.0 09/28/2021 5:34 AM CDT [facility] Health Informatics [facility] LEUKOCYTE ESTERASE UA 3+(A) Negative 09/28/2021 5:34 AM CDT [facility] Health Informatics [facility] NITRITE UA Negative Negative 09/28/2021 5:34 AM CDT [facility] PROTEIN UA Negative Negative 09/28/2021 5:34 AM CDT [facility] GLUCOSE UA Negative Negative 09/28/2021 5:34 AM CDT [facility] KETONES UA Negative Negative 09/28/2021 5:34 AM CDT [facility] UROBILINOGEN UA Normal <2.0 mg/dL 5:34 AM CDT [facility] BILIRUBIN UA Negative Negative 09/28/2021 5:34 AM CDT [facility] BLOOD UA 3+(A) Negative 09/28/2021 5:34 AM CDT [facility] WBC UA >100(A) 0 - 2 /hpf 09/28/2021 5:34 AM CDT [facility] RBC UA >100(A) 0 - 2 /hpf 09/28/2021 5:34 AM CDT [facility] BACTERIA UA 4+(A) Negative /hpf 09/28/2021 5:34 AM CDT [facility] EPITHELIAL CELLS, URINE 0-5 0 - 5 /hpf 09/28/2021 5:34 AM CDT [facility] HYALINE CAST None Seen None Seen, 0-2 /lpf 09/28/2021 5:34 AM T [facility] YEAST, BUDDING Present(A) Absent 09/28/2021 5:34 AM CDT [facility] Urine URINE SPECIMEN OBTAINED BY CLEAN CATCH PROCEDURE / Unknown 09/28/2021 1:39 AM CDT 09/28/2021 4:26 AM CDT [facility] - 09/28/2021 5:34 AM CDT Based on results, a urine culture has been reflexed. us Kristin Llanos MD URINE ORDERABLES Final Result [facility] CLIA# [id number] [place] [address] documented in this encounter Visit Diagnoses Not on filedocumented in this encounter Additional Health Concerns Infection Onset Date Last Indicated Resolved Time R/O C. diff 11/24/2021 11/25/2021 11/25/2021 12:4 1 PM CDT Multi Drug Resistant Organis m (MDRO) 11/25/2021 12/05/2021 Multi Drug Resistant Acinetobacter 12/05/20212021 documented as of this encounter Care Teams Decorating Machine Tender Relationship Specialty Start Date End Date Jennie Cantu MD PCP - General Family Practice 12/06/21 documented as of this encounter
--- OUTSIDE RECORDS SUMMARY | 2024-11-10 01:33 | XMS_ITS | Encounter Summary ---
Author Organization [facility] Address [address] [place] [address] Care Team Providers Care Jacket Changer Name Role Phone Jennie Cantu MD Primary Care Provider [phone] [phone] Encounter Details Date Type Department Care Team (Late st Contact Info) Description 10/03/2021 Lab Requisition [facility] Laboratory Services [address] [place] [address] [place] [address] [place] [address] Social History Tobacco Use Types [...] Associated Diagnosis Comments CBC WITH DIFFERENTIAL Routine 10/03/2021 3:30 AM CDT BASIC METABOLIC PANEL Routine 10/03/2021 3:30 AM CDT documented in this encounter Results * (ABNORMAL) CBC WITH DIFFERENTIAL (10/03/2021 3:30 AM CDT) WBC 7.7 4.5 - 10.5 K/uL 10/03/2021 8:49 AM CDT [facility] SERVICES [facility] RBC 2.79(L) 3.90 - 4.90 M/uL 10/03/2021 8:49 AM CDT [facility] SERVICES [facility] HEMOGLOBIN 7.8(L) 11.8 - 14.8 g/dL 10/03/2021 8:49 AM CDT [facility] SERVICES [facility] HEMATOCRIT 24.0(L) 35.5 - 44.0 % 10/03/2021 8:49 AM CDT [facility]AT[facility] SERVICES [facility] MCV 85.8 82.0 - 99.0 fL 10/03/2021 8:49 AM CDT [facility]OR[facility] SERVICES [facility] MCH 27.8 27.8 - 34.5 pg 10/03/2021 8:49 AM CDT [facility] MCHC 32.4(L) 32.5 - 35.5 g/dL 10/03/2021 8:49 AM CDT [facility] RDW 19.1(H) 11.5 - 14.5 % 10/03/2021 8:49 AM CDT [facility] PLATELETS 388 160 - 420 K/uL 10/03/2021 8:49 AM CDT [facility] MPV 7.6(L) 8.7 - 12.7 fL 10/03/2021 8:49 AM CDT [facility] NEUTROPHILS 79 % 10/03/2021 8:49 AM CDT [facility] SERVICES [facility] LYMPHOCYTES 15 % 10/03/2021 8:49 AM CDT [facility] MONOCYTES 5 % 10/03/2021 8:49 AM CDT [facility] SERVICES [facility] EOSINOPHILS 1 % 10/03/2021 8:49 AM CDT [facility] BASOPHILS 0 % 10/03/2021 8:49 AM CDT [facility] NEUTROPHIL ABSOLUTE 6.10 1.90 - 7.00 K/uL 10/03/2021 8:49 AM CDT [facility] LYMPHOCYTE ABSOLUTE 1.10 0.70 - 4.50 K/uL 10/03/2021 8:49 AM CDT [facility] - [facility] MONOCYTE ABSOLUTE 0.40 0.10 - 1.30 K/uL 10/03/2021 8:49 AM CDT [facility] - [facility] EOSINOPHIL ABSOLUTE 0.10 0.00 - 0.70 K/uL 10/03/2021 8:49 AM CDT [facility] - [facility] BASOPHILS ABSOLUTE 0.00 0.00 - 0.20 K/uL 10/03/2021 8:49 AM CDT [facility] Blood Collection / Unknown 10/03/2021 3:30 AM CDT 10/03/2021 8:32 AM CDT Kristin Llanos MD HEMATOLOGY ORDERABLES Final Resu lt [facility] CLIA# [id number] [place] [address] * (ABNORMAL) BASIC METABOLIC PANEL (10/03/2021 3:30 AM CDT) SODIUM 141 136 - 145 mmol/L 10/03/2021 9:32 AM CDT [facility] POTASSIUM 3.3(L) 3.4 - 5.1 mmol/L 10/03/2021 9:32 AM CDT [facility] CHLORIDE 106 98 - 107 mmol/L 10/03/2021 9:32 AM CDT [facility] CO2 25 22 - 29 mmol/L 10/03/2021 9:32 AM CDT [facility] CALCIUM 8.9 8.6 - 10.4 mg/dL 10/03/2021 9:32 AM CDT [facility] BUN 12 6 - 20 mg/dL 10/03/2021 9:32 AM CDT [facility] CREATININE 0.18(L) 0.51 - 0.95 mg/dL 10/03/2021 9:32 AM CDT [facility] GLUCOSE 103(H) 74 - 99 mg/dL 10/03/2021 9:32 AM CDT [facility] GFR >60 >=60 mL/min/1.7 3 sq meter 10/03/2021 9:32 AM T [facility] Comment:eGFR calculated with 2020 CKD-EPI equation. Vegetarian diet, extremely high or low muscle mass, and may affect results. Cystatin C with Glomerular Filtration Rate is a suitable alternative for these patients. ANION GAP 10 8 - 16 mmol/L 10/03/2021 9:32 AM CDT [facility] Blood Collection / Unknown 10/03/2021 3:30 AM CDT 10/03/2021 8:32 AM CDT us Kristin Llanos MD CHEMISTRY ORDERABLES Final Resul t [facility] CLIA# [id number] [address] [place] [address] documented in this encounter Visit Diagnoses Not on filedocumented in this encounter Additional Health Concerns Infection Onset Date Last Indicated Resolved Time R/O C. diff 11/24/2021 11/25/2021 11/25/2021 12:4 1 PM CDT Multi Drug Resistant Organis m (MDRO) 11/25/2021 12/05/2021 Multi Drug Resistant Acinetobacter 12/05/20212021 documented as of this encounter Care Teams Jacket Changer Relationship Specialty Start Date End Date Jennie Cantu MD PCP - General Family Practice 12/06/21 documented as of this encounter
--- OUTSIDE RECORDS SUMMARY | 2024-11-10 01:33 | XMS_ITS | Encounter Summary ---
Author Organization [facility] Address [address] [place] [address] Care Team Providers Care Watch Case Polisher Name Role Phone Jennie Cantu MD Primary Care Provider [phone] Encounter Details Date Type Department Care Team (Late st Contact Info) Description 09/26/2021 Lab Requisition [facility] Laboratory Services [address] [place] [address] [facility], External Provider [address] [place] [address] Social History Tobacco Use Types Packs/Day Years [...] Procedure Name Priority Date/Time Associated Diagnosis Comments SPUTUM CULTURE WITH GRAM STAIN Routine 09/25/2021 8:00 PM CDT documented in this encounter Results * SPUTUM CULTURE WITH GRAM STAIN (09/25/2021 8:00 PM CDT) CULTURE No pathogens isolated. Normal respiratory karo present. 09/28/2021 6:29 AM CDT [facility] GRAM STAIN 1+ (Rare or Occasional) WBC 09/28/2021 6:29 AM CDT [facility] LABORAT[facility] GRAM STAIN Non diagnostic pattern 09/28/2021 6:29 AM CDT [facility] Sputum Collection / Unknown 09/25/2021 8:00 PM CDT 09/26/2021 6:54 AM CDT us External Provider [facility] MICROBIOLOGY - GENERAL OR DERABLES Final Result [facility] CLIA# [id number] [address] [facility] [place] [address] documented in this encounter Visit Diagnoses Not on filedocumented in this encounter Additional Health Concerns Infection Onset Date Last Indicated Resolved Time R/O C. diff 11/24/2021 11/25/2021 11/25/2021 12:4 1 PM CDT Multi Drug Resistant Organis m (MDRO) 11/25/2021 12/05/2021 Multi Drug Resistant Acinetobacter 12/05/20212021 documented as of this encounter Care Teams Watch Case Polisher Relationship Specialty Start Date End Date Jennie Cantu MD PCP - General Family Practice 12/06/21 documented as of this encounter
--- OUTSIDE RECORDS SUMMARY | 2024-11-10 01:33 | XMS_ITS | Encounter Summary ---
Author Organization [facility] Address [address] [place] [address] Care Team Providers Care Commercial Ocean Clammer Name Role Phone Jennie Cantu MD Primary Care Provider [phone] [phone] Encounter Details Date Type Department Care Team (Late st Contact Info) Description 09/28/2021 Lab Requisition [facility] Laboratory Services [address] [place] [address] [place] [address] [place] [address] Social History Tobacco Use Types [...] Associated Diagnosis Comments CBC WITH DIFFERENTIAL Routine 09/28/2021 1:15 PM CDT BASIC METABOLIC PANEL Routine 09/28/2021 1:15 PM CDT documented in this encounter Results * (ABNORMAL) CBC WITH DIFFERENTIAL (09/28/2021 1:15 PM CDT) WBC 10.1 4.5 - 10.5 K/uL 09/28/2021 1:41 PM CDT [facility] RBC 2.83(L) 3.90 - 4.90 M/uL 09/28/2021 1:41 PM [facility] HEMOGLOBIN 7.7(L) 11.8 - 14.8 g/dL 09/28/2021 1:41 PM [facility] HEMATOCRIT 23.3(L) 35.5 - 44.0 % 09/28/2021 1:41 PM [facility] MCV 82.4 82.0 - 99.0 fL 09/28/2021 1:41 PM CDT [facility] MCH 27.2(L) 27.8 - 34.5 pg 09/28/2021 1:41 PM [facility] MCHC 33.0 32.5 - 35.5 g/dL 09/28/2021 1:41 PM [facility] RDW 17.0(H) 11.5 - 14.5 % 09/28/2021 1:41 PM CDT [facility] PLATELETS 427(H) 160 - 420 K/uL 09/28/2021 1:41 PM [facility] MPV 7.1(L) 8.7 - 12.7 fL 09/28/2021 1:41 PM CDT [facility] NEUTROPHILS 77 % 09/28/2021 1:41 PM CDT [facility] LYMPHOCYTES 16 % 09/28/2021 1:41 PM CDT [facility] MONOCYTES 6 % 09/28/2021 1:41 PM CDT [facility] EOSINOPHILS 1 % 09/28/2021 1:41 PM CDT [facility] BASOPHILS 0 % 09/28/2021 1:41 PM CDT [facility] NEUTROPHIL ABSOLUTE 7.80(H) 1.90 - 7.00 K/uL 09/28/2021 1:41 PM CDT [facility] LYMPHOCYTE ABSOLUTE 1.60 0.70 - 4.50 K/uL 09/28/2021 1:41 PM CDT [facility] SERVICES [facility] MONOCYTE ABSOLUTE 0.60 0.10 - 1.30 K/uL 09/28/2021 1:41 PM CDT [facility] SERVICES [facility] EOSINOPHIL ABSOLUTE 0.10 0.00 - 0.70 K/uL 09/28/2021 1:41 PM CDT [facility] BASOPHILS ABSOLUTE 0.00 0.00 - 0.20 K/uL 09/28/2021 1:41 PM CDT [facility] Blood Collection / Unknown 09/28/2021 1:15 PM CDT 09/28/2021 1:34 PM CDT Kristin Llanos MD HEMATOLOGY ORDERABLES Final Resu lt [facility] CLIA# [id number] [place] [address] * (ABNORMAL) BASIC METABOLIC PANEL (09/28/2021 1:15 PM CDT) SODIUM 135(L) 136 - 145 mmol/L 09/28/2021 2:09 PM CDT [facility] POTASSIUM 3.7 3.4 - 5.1 mmol/L 09/28/2021 2:09 PM CDT [facility] CHLORIDE 101 98 - 107 mmol/L 09/28/2021 2:09 PM CDT [facility] CO2 24 22 - 29 mmol/L 09/28/2021 2:09 PM CDT [facility] CALCIUM 8.4(L) 8.6 - 10.4 mg/dL 09/28/2021 2:09 PM CDT [facility] BUN 18 6 - 20 mg/dL 09/28/2021 2:09 PM CDT [facility] CREATININE 0.21(L) 0.51 - 0.95 mg/dL 09/28/2021 2:09 PM CDT [facility] GLUCOSE 129(H) 74 - 99 mg/dL 09/28/2021 2:09 PM CDT [facility] GFR >60 >=60 mL/min/1.7 3 sq meter 09/28/2021 2:09 PM CDT [facility] Comment:eGFR calculated with 2020 CKD-EPI equation. Vegetarian diet, extremely high or low muscle mass, and may affect results. Cystatin C with Glomerular Filtration Rate is a suitable alternative for these patients. ANION GAP 10 8 - 16 mmol/L 09/28/2021 2:09 PM CDT [facility] Blood Collection / Unknown 09/28/2021 1:15 PM CDT 09/28/2021 1:34 PM CDT us Kristin Llanos MD CHEMISTRY ORDERABLES Final Resul t [facility] CLIA# [id number] [place] [address] documented in this encounter Visit Diagnoses Not on filedocumented in this encounter Additional Health Concerns Infection Onset Date Last Indicated Resolved Time R/O C. 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
--- OUTSIDE RECORDS SUMMARY | 2024-11-10 01:33 | XMS_ITS | Encounter Summary ---
Author Organization [facility] Address [address] [place] [address] Care Team Providers Care Assistant Brand Manager Name Role Phone Jennie Cantu MD Primary Care Provider [phone] Encounter Details Date Type Department Care Team (Late st Contact Info) Description 10/21/2021 Lab Requisition [facility] Laboratory Services [address] [place] [address] [place] [address] [place] [address] Social History Tobacco Use Types [...] Associated Diagnosis Comments CBC WITH DIFFERENTIAL Routine 10/21/2021 4:50 AM CDT BASIC METABOLIC PANEL Routine 10/21/2021 4:50 AM CDT documented in this encounter Results * (ABNORMAL) BASIC METABOLIC PANEL (10/21/2021 4:50 AM CDT) SODIUM 138 136 - 145 mmol/L 10/21/2021 8:45 AM CDT [facility] POTASSIUM 3.9 3.4 - 5.1 mmol/L 10/21/2021 8:45 AM CDT [facility] CHLORIDE 103 98 - 107 mmol/L 10/21/2021 8:45 AM CDT [facility] CO2 24 22 - 29 mmol/L 10/21/2021 8:45 AM CDT [facility] CALCIUM 9.0 8.6 - 10.4 mg/dL 10/21/2021 8:45 AM CDT [facility] BUN 16 6 - 20 mg/dL 10/21/2021 8:45 AM T [facility] CREATININE 0.22(L) 0.51 - 0.95 mg/dL 10/21/2021 8:45 AM CDT [facility] GLUCOSE 114(H) 74 - 99 mg/dL 10/21/2021 8:45 AM T [facility] GFR >60 >=60 mL/min/1.7 3 sq meter 10/21/2021 8:45 AM T [facility] Comment:eGFR calculated with 2020 CKD-EPI equation. Vegetarian diet, extremely high or low muscle mass, and may affect results. Cystatin C with Glomerular Filtration Rate is a suitable alternative for these patients. ANION GAP 11 8 - 16 mmol/L 10/21/2021 8:45 AM CDT [facility] Blood Collection / Unknown 10/21/2021 4:50 AM CDT 10/21/2021 8:07 AM CDT us Kristin Llanos MD CHEMISTRY ORDERABLES Final Resul t [facility] CLIA# [id number] [place] [address] * (ABNORMAL) CBC WITH DIFFERENTIAL (10/21/2021 4:50 AM CDT) Pathologist [facility] WBC 6.5 4.5 - 10.5 K/uL 10/21/2021 8:34 AM CDT [facility] LABORATORY [facility] RBC 4.14 3.90 - 4.90 M/uL 10/21/2021 8:34 AM CDT [facility] LABORATORY [facility] HEMOGLOBIN 11.9 11.8 - 14.8 g/dL 10/21/2021 8:34 AM CDT [facility] LABORATORY [facility] HEMATOCRIT 36.4 35.5 - 44.0 % 10/21/2021 8:34 AM CDT [facility] LABORATORY [facility] MCV 87.9 82.0 - 99.0 fL 10/21/2021 8:34 AM CDT [facility] LABORATORY [facility] MCH 28.7 27.8 - 34.5 pg 10/21/2021 8:34 AM CDT [facility] LABORATORY SERVICES [facility] MCHC 32.6 32.5 - 35.5 g/dL 10/21/2021 8:34 AM CDT [facility] LABORATORY [facility] RDW 19.1(H) 11.5 - 14.5 % 10/21/2021 8:34 AM CDT [facility] LABORATORY [facility] PLATELETS 395 160 - 420 K/uL 10/21/2021 8:34 AM CDT [facility] LABORATORY [facility] MPV 8.3(L) 8.7 - 12.7 fL 10/21/2021 8:34 AM CDT [facility] LABORATORY [facility] NEUTROPHILS 62 % 10/21/2021 8:34 AM CDT [facility] LABORATORY [facility] LYMPHOCYTES 28 % 10/21/2021 8:34 AM CDT [facility] LABORATORY SERVICES [facility] MONOCYTES 8 % 10/21/2021 8:34 AM CDT [facility] LABORATORY SERVICES [facility] EOSINOPHILS 2 % 10/21/2021 8:34 AM CDT [facility] LABORATORY SERVICES [facility] BASOPHILS 1 % 10/21/2021 8:34 AM CDT [facility] LABORATORY [facility] NEUTROPHIL ABSOLUTE 4.10 1.90 - 7.00 K/uL 10/21/2021 8:34 AM CDT [facility] LABORATORY [facility] LYMPHOCYTE ABSOLUTE 1.80 0.70 - 4.50 K/uL 10/21/2021 8:34 AM CDT [facility] LABORATORY SERVICES [facility] MONOCYTE ABSOLUTE 0.50 0.10 - 1.30 K/uL 10/21/2021 8:34 AM CDT [facility] LABORATORY SERVICES [facility] EOSINOPHIL ABSOLUTE 0.10 0.00 - 0.70 K/uL 10/21/2021 8:34 AM CDT [facility] LABORATORY SERVICES [facility] BASOPHILS ABSOLUTE 0.00 0.00 - 0.20 K/uL 10/21/2021 8:34 AM CDT [facility] LABORATORY [facility] Blood Collection / Unknown 10/21/2021 4:50 AM CDT 10/21/2021 8:07 AM CDT Kristin Llanos MD HEMATOLOGY ORDERABLES Final Resu lt [facility] CLIA# [id number] [place] [address] documented in this encounter Visit Diagnoses Not on filedocumented in this encounter Additional Health Concerns Infection Onset Date Last Indicated Resolved Time R/O C. 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
--- OUTSIDE RECORDS SUMMARY | 2024-11-10 01:33 | XMS_ITS | Encounter Summary ---
Author Organization [facility] Address [address] [place] [address] Care Team Providers Care Adjunct Professor Of English Name Role Phone Jennie Cantu MD Primary Care Provider [phone] Encounter Details Date Type Department Care Team (Late st Contact Info) Description 10/12/2021 Lab Requisition [facility] Laboratory Services [address] [place] [address] [facility], External Provider [address] [place] [address] Social History Tobacco Use Types Packs/Day Years [...] Associated Diagnosis Comments CBC WITH DIFFERENTIAL Routine 10/12/2021 3:00 AM CDT BASIC METABOLIC PANEL Routine 10/12/2021 3:00 AM CDT documented in this encounter Results * (ABNORMAL) CBC WITH DIFFERENTIAL (10/12/2021 3:00 AM CDT) WBC 6.5 4.5 - 10.5 K/uL 10/12/2021 4:52 AM CDT [facility] LABORATORY [facility] RBC 3.47(L) 3.90 - 4.90 M/uL 10/12/2021 4:52 AM CDT [facility] LABORATORY SERVICES [facility] HEMOGLOBIN 9.7(L) 11.8 - 14.8 g/dL 10/12/2021 4:52 AM CDT [facility] HEMATOCRIT 30.3(L) 35.5 - 44.0 % 10/12/2021 4:52 AM CDT [facility] MCV 87.5 82.0 - 99.0 fL 10/12/2021 4:52 AM CDT [facility] LABORATORY SERVICES [facility] MCH 27.9 27.8 - 34.5 pg 10/12/2021 4:52 AM CDT [facility] LABOR[facility] MCHC 31.8(L) 32.5 - 35.5 g/dL 10/12/2021 4:52 AM CDT [facility] RDW 20.8(H) 11.5 - 14.5 % 10/12/2021 4:52 AM CDT [facility] PLATELETS 290 160 - 420 K/uL 10/12/2021 4:52 AM CDT [facility] MPV 7.2(L) 8.7 - 12.7 fL 10/12/2021 4:52 AM CDT [facility] LABORATORY SERVICES [facility] NEUTROPHILS 62 % 10/12/2021 4:52 AM CDT [facility] LABORATORY SERVICES [facility] LYMPHOCYTES 31 % 10/12/2021 4:52 AM CDT [facility] LABORATORY SERVICES [facility] MONOCYTES 5 % 10/12/2021 4:52 AM CDT [facility] LABORATORY SERVICES [facility] EOSINOPHILS 2 % 10/12/2021 4:52 AM CDT [facility] LABORATORY SERVICES [facility] BASOPHILS 0 % 10/12/2021 4:52 AM CDT [facility] LABORATORY SERVICES [facility] NEUTROPHIL ABSOLUTE 4.00 1.90 - 7.00 K/uL 10/12/2021 4:52 AM CDT [facility] LABOR[facility] LYMPHOCYTE ABSOLUTE 2.00 0.70 - 4.50 K/uL 10/12/2021 4:52 AM CDT [facility] MONOCYTE ABSOLUTE 0.30 0.10 - 1.30 K/uL 10/12/2021 4:52 AM CDT [facility] LABORATORY SERVICES [facility] EOSINOPHIL ABSOLUTE 0.10 0.00 - 0.70 K/uL 10/12/2021 4:52 AM CDT [facility] LABORATORY SERVICES [facility] BASOPHILS ABSOLUTE 0.00 0.00 - 0.20 K/uL 10/12/2021 4:52 AM CDT [facility] Blood Collection / Unknown 10/12/2021 3:00 AM CDT 10/12/2021 4:27 AM CDT External Provider [facility] HEMATOLOGY ORDERABLES Fin al Result [facility] CLIA# [id number] [place] [address] * (ABNORMAL) BASIC METABOLIC PANEL (10/12/2021 3:00 AM CDT) SODIUM 140 136 - 145 mmol/L 10/12/2021 5:04 AM T [facility] POTASSIUM 3.3(L) 3.4 - 5.1 mmol/L 10/12/2021 5:04 AM T [facility] LAB[facility]ORY [facility] CHLORIDE 103 98 - 107 mmol/L 10/12/2021 5:04 AM CDT [facility] CO2 26 22 - 29 mmol/L 10/12/2021 5:04 AM T [facility] LAB[facility] CALCIUM 9.0 8.6 - 10.4 mg/dL 10/12/2021 5:04 AM CDT [facility] BUN 18 6 - 20 mg/dL 10/12/2021 5:04 AM CDT [facility] CREATININE 0.18(L) 0.51 - 0.95 mg/dL 10/12/2021 5:04 AM CDT [facility] LAB[facility] GLUCOSE 87 74 - 99 mg/dL 10/12/2021 5:04 AM T [facility] GFR >60 >=60 mL/min/1.7 3 sq meter 10/12/2021 5:04 AM CDT [facility] Comment:eGFR calculated with 2020 CKD-EPI equation. Vegetarian diet, extremely high or low muscle mass, and may affect results. Cystatin C with Glomerular Filtration Rate is a suitable alternative for these patients. ANION GAP 11 8 - 16 mmol/L 10/12/2021 5:04 AM CDT [facility] Blood Collection / Unknown 10/12/2021 3:00 AM CDT 10/12/2021 4:27 AM CDT us External Provider [facility] CHEMISTRY ORDERABLES Cortney l Result [facility]ORATORY [facility] CLIA# [id number] [place] [address] documented in this encounter Visit Diagnoses Not on filedocumented in this encounter Additional Health Concerns Infection Onset Date Last Indicated Resolved Time R/O C. 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
--- OUTSIDE RECORDS SUMMARY | 2024-11-10 01:33 | XMS_ITS | Encounter Summary ---
Author Organization [facility] Address [address] [place] [address] Care Team Providers Care Uniform Room Attendant Name Role Phone Jennie Cantu MD Primary Care Provider [phone] Encounter Details Date Type Department Care Team (Late st Contact Info) Description 10/01/2021 Lab Requisition [facility] Laboratory Services [address] [place] [address] [place] [address] [place] [address] Social History Tobacco Use Types [...] Associated Diagnosis Comments C. DIFFICILE DETECTION Routine 10/01/2021 3:00 PM CDT documented in this encounter Results * C. DIFFICILE DETECTION (10/01/2021 3:00 PM CDT) TOXIGENIC C DIFFICILE NOT DETECTED Not Detected 10/01/2021 4:34 PM CDT [facility] LABORATORY [facility] Stool STOOL SPECIMEN / Unknown Collection / Unknown 10/01/2021 3:00 PM CDT 10/01/2021 3:41 PM CDT Narrative [facility] LABORATORY SERVICES [facility] - 10/01/2021 4:34 PM CDT This assay is used to detect Toxigenic C. difficile target(B gene) DNA sequences in unformed stool specimens. If toxigenic C. difficile is not detected, but clinical suspicion is high please consult ID for consultation and potential repeat testing. This test should not be used as a test of cure. Kristin Llanos MD MICROBIOLOGY - GENERAL ORDERABLE S Final Result [facility] LABORATORY SERVICES [facility] CLIA# [id number] [address] [place] [address] documented in this encounter Visit Diagnoses Not on filedocumented in this encounter Additional Health Concerns Infection Onset Date Last Indicated Resolved Time R/O C. 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
--- OUTSIDE RECORDS SUMMARY | 2024-11-10 01:33 | XMS_ITS | Encounter Summary ---
Author Organization [facility] Address [address] [place] [address] Care Team Providers Care Head Of Loss Prevention Name Role Phone Jennie Cantu MD Primary Care Provider [phone] [phone] Encounter Details Date Type Department Care Team (Late st Contact Info) Description 09/30/2021 Lab Requisition [facility] Laboratory Services [address] [place] [address] [place] [address] [place] [address] Social History Tobacco Use Types [...] Associated Diagnosis Comments CBC WITH DIFFERENTIAL Routine 09/30/2021 4:02 AM CDT BASIC METABOLIC PANEL Routine 09/30/2021 4:02 AM CDT documented in this encounter Results * (ABNORMAL) CBC WITH DIFFERENTIAL (09/30/2021 4:02 AM CDT) WBC 8.3 4.5 - 10.5 K/uL 09/30/2021 7:13 AM CDT [facility] RBC 2.89(L) 3.90 - 4.90 M/uL 09/30/2021 7:13 AM CDT [facility] HEMOGLOBIN 7.8(L) 11.8 - 14.8 g/dL 09/30/2021 7:13 AM CDT [facility] HEMATOCRIT 24.7(L) 35.5 - 44.0 % 09/30/2021 7:13 AM CDT [facility] MCV 85.5 82.0 - 99.0 fL 09/30/2021 7:13 AM CDT [facility] MCH 27.0(L) 27.8 - 34.5 pg 09/30/2021 7:13 AM [facility] MCHC 31.6(L) 32.5 - 35.5 g/dL 09/30/2021 7:13 AM CDT [facility] RDW 18.2(H) 11.5 - 14.5 % 09/30/2021 7:13 AM CDT [facility] PLATELETS 418 160 - 420 K/uL 09/30/2021 7:13 AM [facility]FORMERLY [facility] MPV 7.4(L) 8.7 - 12.7 fL 09/30/2021 7:13 AM CDT [facility] NEUTROPHILS 81 % 09/30/2021 7:13 AM CDT [facility] LYMPHOCYTES 11 % 09/30/2021 7:13 AM CDT [facility] MONOCYTES 6 % 09/30/2021 7:13 AM CDT [facility] EOSINOPHILS 1 % 09/30/2021 7:13 AM CDT [facility] BASOPHILS 1 % 09/30/2021 7:13 AM CDT [facility] NEUTROPHIL ABSOLUTE 6.70 1.90 - 7.00 K/uL 09/30/2021 7:13 AM CDT [facility] LYMPHOCYTE ABSOLUTE 0.90 0.70 - 4.50 K/uL 09/30/2021 7:13 AM CDT [facility] MONOCYTE ABSOLUTE 0.50 0.10 - 1.30 K/uL 09/30/2021 7:13 AM CDT [facility] SERVICES - [facility] EOSINOPHIL ABSOLUTE 0.10 0.00 - 0.70 K/uL 09/30/2021 7:13 AM CDT [facility] SERVICES - [facility] BASOPHILS ABSOLUTE 0.00 0.00 - 0.20 K/uL 09/30/2021 7:13 AM CDT [facility] Blood 09/30/2021 4:02 AM CDT 09/30/2021 6:58 AM CDT us Kristin Llanos MD HEMATOLOGY ORDERABLES Final Resu lt [facility] CLIA# [id number] [place] [address] * (ABNORMAL) BASIC METABOLIC PANEL (09/30/2021 4:02 AM CDT) SODIUM 138 136 - 145 mmol/L 09/30/2021 7:32 AM CDT [facility] POTASSIUM 3.3(L) 3.4 - 5.1 mmol/L 09/30/2021 7:32 AM CDT [facility] CHLORIDE 105 98 - 107 mmol/L 09/30/2021 7:32 AM CDT [facility] CO2 24 22 - 29 mmol/L 09/30/2021 7:32 AM CDT [facility] CALCIUM 8.6 8.6 - 10.4 mg/dL 09/30/2021 7:32 AM CDT [facility] BUN 17 6 - 20 mg/dL 09/30/2021 7:32 AM CDT [facility] CREATININE 0.21(L) 0.51 - 0.95 mg/dL 09/30/2021 7:32 AM CDT [facility] GLUCOSE 105(H) 74 - 99 mg/dL 09/30/2021 7:32 AM CDT [facility] GFR >60 >=60 mL/min/1.7 3 sq meter 09/30/2021 7:32 AM T [facility] Comment:eGFR calculated with 2020 CKD-EPI equation. Vegetarian diet, extremely high or low muscle mass, and may affect results. Cystatin C with Glomerular Filtration Rate is a suitable alternative for these patients. ANION GAP 9 8 - 16 mmol/L 09/30/2021 7:32 AM CDT [facility] Blood 09/30/2021 4:02 AM CDT 09/30/2021 6:58 AM CDT Kristin Llanos MD CHEMISTRY ORDERABLES Final Resul t [facility] CLIA# [id number] [address] [place] [address] documented in this encounter Visit Diagnoses Not on filedocumented in this encounter Additional Health Concerns Infection Onset Date Last Indicated Resolved Time R/O C. 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
--- OUTSIDE RECORDS SUMMARY | 2024-11-10 01:33 | XMS_ITS | Encounter Summary ---
Author Organization [facility] Address [address] [place] [address] Care Team Providers Care Warehouse Packer Name Role Phone Jennie Cantu MD Primary Care Provider [phone] [phone] Encounter Details Date Type Department Care Team (Late st Contact Info) Description 10/15/2021 Lab Requisition [facility] Laboratory Services [address] [place] [address] [place] [address] [place] [address] Social History Tobacco Use Types [...] Associated Diagnosis Comments CBC WITH DIFFERENTIAL Routine 10/15/2021 2:35 AM CDT BASIC METABOLIC PANEL Routine 10/15/2021 2:35 AM CDT documented in this encounter Results * (ABNORMAL) CBC WITH DIFFERENTIAL (10/15/2021 2:35 AM CDT) WBC 6.3 4.5 - 10.5 K/uL 10/15/2021 4:59 AM CDT [facility] RBC 3.74(L) 3.90 - 4.90 M/uL 10/15/2021 4:59 AM CDT [facility] HEMOGLOBIN 10.6(L) 11.8 - 14.8 g/dL 10/15/2021 4:59 AM CDT [facility] HEMATOCRIT 32.8(L) 35.5 - 44.0 % 10/15/2021 4:59 AM CDT [facility] MCV 87.6 82.0 - 99.0 fL 10/15/2021 4:59 AM CDT [facility] MCH 28.4 27.8 - 34.5 pg 10/15/2021 4:59 AM CDT [facility] MCHC 32.4(L) 32.5 - 35.5 g/dL 10/15/2021 4:59 AM CDT [facility] RDW 20.5(H) 11.5 - 14.5 % 10/15/2021 4:59 AM CDT [facility] PLATELETS 311 160 - 420 K/uL 10/15/2021 4:59 AM CDT [facility] MPV 7.7(L) 8.7 - 12.7 fL 10/15/2021 4:59 AM CDT [facility] NEUTROPHILS 64 % 10/15/2021 4:59 AM CDT [facility] LYMPHOCYTES 26 % 10/15/2021 4:59 AM CDT [facility] MONOCYTES 7 % 10/15/2021 4:59 AM CDT [facility] EOSINOPHILS 3 % 10/15/2021 4:59 AM CDT [facility] BASOPHILS 0 % 10/15/2021 4:59 AM CDT [facility] NEUTROPHIL ABSOLUTE 4.00 1.90 - 7.00 K/uL 10/15/2021 4:59 AM CDT [facility] LYMPHOCYTE ABSOLUTE 1.60 0.70 - 4.50 K/uL 10/15/2021 4:59 AM CDT [facility] - [facility] MONOCYTE ABSOLUTE 0.40 0.10 - 1.30 K/uL 10/15/2021 4:59 AM CDT [facility] - [facility] EOSINOPHIL ABSOLUTE 0.20 0.00 - 0.70 K/uL 10/15/2021 4:59 AM CDT [facility] - [facility] BASOPHILS ABSOLUTE 0.00 0.00 - 0.20 K/uL 10/15/2021 4:59 AM CDT [facility] Blood 10/15/2021 2:35 AM CDT 10/15/2021 4:22 AM CDT Kristin Llanos MD HEMATOLOGY ORDERABLES Final Resu lt [facility] CLIA# [id number] [place] [address] * (ABNORMAL) BASIC METABOLIC PANEL (10/15/2021 2:35 AM CDT) SODIUM 141 136 - 145 mmol/L 10/15/2021 5:16 AM CDT [facility] POTASSIUM 3.5 3.4 - 5.1 mmol/L 10/15/2021 5:16 AM CDT [facility] CHLORIDE 104 98 - 107 mmol/L 10/15/2021 5:16 AM CDT [facility] CO2 26 22 - 29 mmol/L 10/15/2021 5:16 AM CDT [facility] CALCIUM 9.1 8.6 - 10.4 mg/dL 10/15/2021 5:16 AM CDT [facility] BUN 17 6 - 20 mg/dL 10/15/2021 5:16 AM CDT [facility] CREATININE 0.19(L) 0.51 - 0.95 mg/dL 10/15/2021 5:16 AM CDT [facility] GLUCOSE 100(H) 74 - 99 mg/dL 10/15/2021 5:16 AM CDT [facility] GFR >60 >=60 mL/min/1.7 3 sq meter 10/15/2021 5:16 AM CDT [facility] [employer] [facility] Comment:eGFR calculated with 2020 CKD-EPI equation. Vegetarian diet, extremely high or low muscle mass, and may affect results. Cystatin C with Glomerular Filtration Rate is a suitable alternative for these patients. ANION GAP 11 8 - 16 mmol/L 10/15/2021 5:16 AM CDT [facility] Blood 10/15/2021 2:35 AM CDT 10/15/2021 4:22 AM CDT Kristin Llanos MD CHEMISTRY ORDERABLES Final Resul t [facility] [employer] [facility] CLIA# [id number] [place] [address] documented in this encounter Visit Diagnoses Not on filedocumented in this encounter Additional Health Concerns Infection Onset Date Last Indicated Resolved Time R/O C. diff 11/24/2021 11/25/2021 11/25/2021 12:4 1 PM CDT Multi Drug Resistant Organis m (MDRO) 11/25/2021 12/05/2021 Multi Drug Resistant Acinetobacter 12/05/20212021 documented as of this encounter Care Teams Warehouse Packer Relationship Specialty Start Date End Date Jennie Cantu MD PCP - General Family Practice 12/06/21 documented as of this encounter
--- OUTSIDE RECORDS SUMMARY | 2024-11-10 01:33 | XMS_ITS | Encounter Summary ---
Author Organization [facility] Address [address] [place] [address] Care Team Providers Care Sales Representative Facility Services Name Role Phone Jennie Cantu MD Primary Care Provider [phone] [phone] Encounter Details Date Type Department Care Team (Late st Contact Info) Description 10/16/2021 Lab Requisition [facility] Laboratory Services [address] [place] [address] [place] [address] [place] [address] Social History Tobacco Use Types [...] Associated Diagnosis Comments C. DIFFICILE DETECTION Routine 10/16/2021 11:32 AM CDT documented in this encounter Results * C. DIFFICILE DETECTION (10/16/2021 11:32 AM CDT) TOXIGENIC C DIFFICILE NOT DETECTED Not Detected 10/16/2021 2:34 PM CDT [facility] Stool STOOL SPECIMEN / Unknown Collection / Unknown 10/16/2021 11:32 AM CDT 10/16/2021 1:41 PM CDT Narrative [facility] - 10/16/2021 2:34 PM CDT [place] Pt This assay is used to detect Toxigenic C. difficile target(B gene) DNA sequences in unformed stool specimens. If toxigenic C. difficile is not detected, but clinical suspicion is high please consult ID for consultation and potential repeat testing. This test should not be used as a test of cure. Kristin Llanos MD MICROBIOLOGY - GENERAL ORDERABLE S Final Result [facility] CLIA# [id number] [address] [place] [address] documented in this encounter Visit Diagnoses Not on filedocumented in this encounter Additional Health Concerns Infection Onset Date Last Indicated Resolved Time R/O C. diff 11/24/2021 11/25/2021 11/25/2021 12:4 1 PM CDT Multi Drug Resistant Organis m (MDRO) 11/25/2021 12/05/2021 Multi Drug Resistant Acinetobacter 12/05/20212021 documented as of this encounter Care Teams Sales Representative Facility Services Relationship Specialty Start Date End Date Jennie Cantu MD PCP - General Family Practice 12/06/21 documented as of this encounter
--- OUTSIDE RECORDS SUMMARY | 2024-11-10 01:33 | XMS_ITS | Encounter Summary ---
Author Organization [facility] Address [address] [place] [address] Care Team Providers Care Catalogue Illustrator Name Role Phone Jennie Cantu MD Primary Care Provider [phone] Encounter Details Date Type Department Care Team (Late st Contact Info) Description 10/14/2021 Lab Requisition [facility] Laboratory Services [address] [place] [address] [place] [address] [place] [address] Social History Tobacco Use Types [...] Procedure Name Priority Date/Time Associated Diagnosis Comments URINALYSIS WITH REFLEX CULTURE Routine 10/14/2021 2:40 PM CDT URINE CULTURE Routine 10/14/2021 2:40 PM CDT URINE CULTURE Routine 10/14/2021 2:40 PM CDT documented in this encounter Results * (ABNORMAL) URINE CULTURE (10/14/2021 2:40 PM CDT) Pathologist [facility] CULTURE CITROBACTER AMALONATICUS(A) BESS MCG/ML 10/18/2021 11:26 AM CDT [facility] CULTURE RAOULTELLA ORNITHINOLYTICA (A) BESS MCG/ML 10/18/2021 11:26 AM CDT [facility] Urine URINE SPECIMEN OBTAINED BY CLEAN CATCH PROCEDURE / Unknown 10/14/2021 2:40 PM CDT 10/14/2021 6:52 PM CDT Narrative Organism Antibiotic Method Susceptibility Citrobacter amalonaticus CEFTRIAXONE BESS MCG/ML <=1 mcg/mL: Susceptible Citrobacter amalonaticus CIPROFLOXACIN BESS MCG/ML <=0.25 mcg/mL: Susceptible Citrobacter amalonaticus GENTAMICIN BESS MCG/ML <=1 mcg/mL: Susceptible Citrobacter amalonaticus NITROFURANTOIN BESS MCG/ML 64 mcg/mL: Intermediate Citrobacter amalonaticus PIPERACILLIN/ TAZOBACTAM BESS MCG/ML <=4 mcg/mL: Susceptible Citrobacter amalonaticus TRIMETHOPRIM/ SULFAMETHOXAZOLE BESS MCG/ML <=20 mcg/mL: Susceptible Citrobacter amalonaticus CEFTAZIDIME BESS MCG/ML <=1 mcg/mL: Susceptible Citrobacter amalonaticus CEFOXITIN BESS MCG/ML <=4 mcg/mL: Susceptible Citrobacter amalonaticus CEFAZOLIN [place]ZA[place] Resistant Raoultella ornithinolytica AMPICILLIN [place] Resistant Raoultella ornithinolytica AMPICILLIN/ SULBACTAM [place] Susceptible Raoultella ornithinolytica CEFAZOLIN [place] Susceptible Raoultella ornithinolytica GENTAMICIN [place] Susceptible Raoultella ornithinolytica CIPROFLOXACIN [place] Susceptible Raoultella ornithinolytica TRIMETHOPRIM/ SULFAMETHOXAZOLE [place] Susceptible Kristin Llanos MD MICROBIOLOGY - GENERAL ORDERABLE S Final Result [facility] CLIA# [id number] [address] [place] [address] * URINE CULTURE (10/14/2021 2:40 PM CDT) CULTURE Polymicrobial growth consistent with normal urethral karo and/or colonizing bacteria 10/16/2021 7:32 AM CDT [facility] Urine 10/14/2021 2:40 PM CDT 10/14/2021 6:41 PM CDT Kristin Llanos MD MICROBIOLOGY - GENERAL ORDERABLE S Final Result [facility] CLIA# [id number] [address] [place] [address] * (ABNORMAL) URINALYSIS WITH REFLEX CULTURE (10/14/2021 2:40 PM CDT) COLOR UA Yellow Pale to Dark Yellow 10/14/2021 6:52 PM CDT [facility] CLARITY UA Slightly Cloudy(A) Clear 10/14/2021 6:52 PM CDT [facility] SPECIFIC GRAVITY UA 1.005 1.003 - 1.035 10/14/2021 6:52 PM CDT [facility] PH UA 7.0 5.0 - 8.0 10/14/2021 6:52 PM CDT [facility] LEUKOCYTE ESTERASE UA 3+(A) Negative 10/14/2021 6:52 PM CDT [facility] NITRITE UA Negative Negative 10/14/2021 6:52 PM CDT [facility] PROTEIN UA Negative Negative 10/14/2021 6:52 PM CDT [facility] GLUCOSE UA Negative Negative 10/14/2021 6:52 PM CDT [facility] KETONES UA Negative Negative 10/14/2021 6:52 PM CDT [facility] UROBILINOGEN UA Normal <2.0 mg/dL 6:52 PM CDT [facility] BILIRUBIN UA Negative Negative 10/14/2021 6:52 PM CDT [facility] BLOOD UA 2+(A) Negative 10/14/2021 6:52 PM CDT [facility] WBC UA 11-25(A) 0 - 2 /hpf 10/14/2021 6:52 PM CDT [facility] RBC UA 3-5(A) 0 - 2 /hpf 10/14/2021 6:52 PM CDT [facility] BACTERIA UA 4+(A) Negative /hpf 10/14/2021 6:52 PM CDT [facility] EPITHELIAL CELLS, URINE 0-5 0 - 5 /hpf 10/14/2021 6:52 PM CDT [facility] HYALINE CAST 0-2 None Seen, 0-2 /lpf 10/14/2021 6:52 PM CDT [facility] Urine URINE SPECIMEN OBTAINED BY CLEAN CATCH PROCEDURE / Unknown 10/14/2021 2:40 PM CDT 10/14/2021 6:41 PM CDT Narrative [facility] - 10/14/2021 6:52 PM CDT Based on results, a urine culture has been reflexed. Kristin Llanos MD URINE ORDERABLES Final Result [facility] CLIA# [id number] [address] [place] [address] documented in this encounter Visit Diagnoses Not on filedocumented in this encounter Additional Health Concerns Infection Onset Date Last Indicated Resolved Time R/O C. 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
--- OUTSIDE RECORDS SUMMARY | 2024-11-10 01:33 | XMS_ITS | Encounter Summary ---
Author Organization [facility] Address [address] [place] [address] Care Team Providers Care Assembly Machine Offbearer Name Role Phone Jennie iLnton MD Primary Care Provider [phone] Yesi Natarajan PHOTO CARTOGRAPHER Unavailable Encounter Details Date Type Department Care Team (Late st Contact Info) Description 08/15/2024 LikeList Message Enc [facility] [place] [address] [facility] Provider Wound Culture Results Social History Tobacco Use Types Packs/Day Years Used Date Smoking Tobacco: Never Smokeless Tobacco: Never Alcohol Use Standard Drinks/Week Comments Never 0 (1 standard drink = 0.6 oz pur e alcohol) PHQ-2 Answer Date Recorded Patient Health Questionnaire-2 Score 0 10/06/2023 Comments Unknown Sex and Gender Information Value Date Recorded Sex Assigned at Female 07/10/2024 8:27 AM CDT Legal Sex Female 2:53 PM HAND COOPER HELPER Gender Identity Not on file Sexual Orientation Not on file documented as of this encounter Plan of Treatment Upcoming Encounters Date Type Department Care Team (Late st Contact Info) Description 11/13/2024 8:15 AM CDT Appointment [facility] [place] [address] Faye Mccarty MD [address] [place] [address] documented as of this encounter Visit Diagnoses Not on filedocumented in this encounter Additional Health Concerns Infection Onset Date Last Indicated Resolved Time 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
--- OUTSIDE RECORDS SUMMARY | 2024-11-10 01:33 | XMS_ITS | Encounter Summary ---
Author Organization [facility] Address [address] [place] [address] Care Team Providers Care Campground Caretaker Name Role Phone Jennie Cantu MD Primary Care Provider +1 [phone] Encounter Details Date Type Department Care Team (Late st Contact Info) Description 11/23/2021 Lab Requisition [facility] Laboratory Services [address] [place] [address] [place] [address] [place] [address] Social History Tobacco Use Types [...] suspected to have Coronavirus/COVID-19? No / Unsure 11/24/2021 11:05 PM CDT documented as of this encounter Plan of Treatment Not on file documented as of this encounter Procedures Procedure Name Priority Date/Time Associated Diagnosis Comments CBC WITH DIFFERENTIAL Routine 11/23/2021 3:30 AM CDT BASIC METABOLIC PANEL Routine 11/23/2021 3:30 AM CDT documented in this encounter Results * (ABNORMAL) CBC WITH DIFFERENTIAL (11/23/2021 3:30 AM CDT) [facility] WBC 8.2 4.5 - 10.5 K/uL 11/23/2021 8:21 AM CDT [facility] RBC 4.12 3.90 - 4.90 M/uL 11/23/2021 8:21 AM CDT [facility] HEMOGLOBIN 11.4(L) 11.8 - 14.8 g/dL 11/23/2021 8:21 AM CDT [facility] HEMATOCRIT 35.8 35.5 - 44.0 % 11/23/2021 8:21 AM CDT [facility] MCV 86.8 82.0 - 99.0 fL 11/23/2021 8:21 AM CDT [facility] MCH 27.6(L) 27.8 - 34.5 pg 11/23/2021 8:21 AM CDT [facility] MCHC 31.8(L) 32.5 - 35.5 g/dL 11/23/2021 8:21 AM CDT [facility] RDW 18.6(H) 11.5 - 14.5 % 11/23/2021 8:21 AM CDT [facility] PLATELETS 477(H) 160 - 420 K/uL 11/23/2021 8:21 AM CDT [facility] MPV 8.8 8.7 - 12.7 fL 11/23/2021 8:21 AM CDT [facility] NEUTROPHILS 63 % 11/23/2021 8:21 AM CDT [facility] LYMPHOCYTES 25 % 11/23/2021 8:21 AM CDT [facility] MONOCYTES 10 % 11/23/2021 8:21 AM CDT [facility] EOSINOPHILS 2 % 11/23/2021 8:21 AM CDT [facility] BASOPHILS 0 % 11/23/2021 8:21 AM CDT [facility] NEUTROPHIL ABSOLUTE 5.20 1.90 - 7.00 K/uL 11/23/2021 8:21 AM CDT [facility] LYMPHOCYTE ABSOLUTE 2.00 0.70 - 4.50 K/uL 11/23/2021 8:21 AM CDT [facility] MONOCYTE ABSOLUTE 0.80 0.10 - 1.30 K/uL 11/23/2021 8:21 AM CDT [facility] - [facility] EOSINOPHIL ABSOLUTE 0.20 0.00 - 0.70 K/uL 11/23/2021 8:21 AM CDT [facility] - [facility] BASOPHILS ABSOLUTE 0.00 0.00 - 0.20 K/uL 11/23/2021 8:21 AM CDT [facility] Blood Collection / Unknown 11/23/2021 3:30 AM CDT 11/23/2021 8:05 AM CDT Kristin Llanos MD HEMATOLOGY ORDERABLES Final Resu lt [facility] CLIA# [id number] [place] [address] * (ABNORMAL) BASIC METABOLIC PANEL (11/23/2021 3:30 AM CDT) SODIUM 138 136 - 145 mmol/L 11/23/2021 9:20 AM CDT [facility] POTASSIUM 3.6 3.4 - 5.1 mmol/L 11/23/2021 9:20 AM CDT [facility] CHLORIDE 98 98 - 107 mmol/L 11/23/2021 9:20 AM CDT [facility] CO2 25 22 - 29 mmol/L 11/23/2021 9:20 AM CDT [facility] CALCIUM 9.6 8.6 - 10.4 mg/dL 11/23/2021 9:20 AM CDT [facility] BUN 16 6 - 20 mg/dL 11/23/2021 9:20 AM CDT [facility] CREATININE 0.20(L) 0.51 - 0.95 mg/dL 11/23/2021 9:20 AM CDT [facility] GLUCOSE 43(LL) 74 - 99 mg/dL 11/23/2021 9:20 AM CDT [facility] GFR >60 >=60 mL/min/1.7 3 sq meter 11/23/2021 9:20 AM T [facility] Comment:eGFR calculated with 2020 CKD-EPI equation. Vegetarian diet, extremely high or low muscle mass, and may affect results. Cystatin C with Glomerular Filtration Rate is a suitable alternative for these patients. ANION GAP 15 8 - 16 mmol/L 11/23/2021 9:20 AM CDT [facility] Blood Collection / Unknown 11/23/2021 3:30 AM CDT 11/23/2021 8:05 AM CDT Kristin Llanos MD CHEMISTRY ORDERABLES Final Resul t [facility] CLIA# [id number] [address] [place] [address] documented in this encounter Visit Diagnoses Not on filedocumented in this encounter Additional Health Concerns Infection Onset Date Last Indicated Resolved Time R/O C. 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
--- OUTSIDE RECORDS SUMMARY | 2024-11-10 01:33 | XMS_ITS | Encounter Summary ---
Author Organization [facility] Address [address] [place] [address] Care Team Providers Care Protection Agent Name Role Phone Jennie Cantu MD Primary Care Provider [phone] [phone] Encounter Details Date Type Department Care Team (Late st Contact Info) Description 10/08/2021 Lab Requisition [facility] Laboratory Services [address] [place] [address] [place] [address] [place] [address] Social History Tobacco Use Types [...] Procedure Name Priority Date/Time Associated Diagnosis Comments RENAL FUNCTION PANEL Routine 10/08/2021 3:30 AM CDT documented in this encounter Results * (ABNORMAL) RENAL FUNCTION PANEL (10/08/2021 3:30 AM CDT) SODIUM 142 136 - 145 mmol/L 10/08/2021 6:54 AM CDT [facility] POTASSIUM 3.5 3.4 - 5.1 mmol/L 10/08/2021 6:54 AM T [facility] CHLORIDE 104 98 - 107 mmol/L 10/08/2021 6:54 AM T [facility] CO2 28 22 - 29 mmol/L 10/08/2021 6:54 AM T [facility] CALCIUM 9.1 8.6 - 10.4 mg/dL 10/08/2021 6:54 AM T [facility] BUN 13 6 - 20 mg/dL 10/08/2021 6:54 AM T [facility] CREATININE 0.20(L) 0.51 - 0.95 mg/dL 10/08/2021 6:54 AM T [facility] GLUCOSE 108(H) 74 - 99 mg/dL 10/08/2021 6:54 AM T [facility] ALBUMIN 3.0(L) 3.5 - 5.2 g/dL 10/08/2021 6:54 AM T [facility] PHOSPHORUS 3.6 2.5 - 4.5 mg/dL 10/08/2021 6:54 AM T [facility] GFR >60 >=60 mL/min/1.7 3 sq meter 10/08/2021 6:54 AM [facility] Comment:eGFR calculated with 2020 CKD-EPI equation. Vegetarian diet, extremely high or low muscle mass, and may affect results. Cystatin C with Glomerular Filtration Rate is a suitable alternative for these patients. ANION GAP 10 8 - 16 mmol/L 10/08/2021 6:54 AM T [facility] Blood 10/08/2021 3:30 AM CDT 10/08/2021 5:26 AM CDT us Kristin Llanos MD CHEMISTRY ORDERABLES Final Resul t [facility] CLIA# [id number] [address] [place] [address] documented in this encounter Visit Diagnoses Not on filedocumented in this encounter Additional Health Concerns Infection Onset Date Last Indicated Resolved Time R/O C. 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
--- OUTSIDE RECORDS SUMMARY | 2024-11-10 01:33 | XMS_ITS | Clinical Summary ---
Author Organization [facility] Address [address] [place] [address] Care Team Providers Care Laundry Aide Name Role Phone Jennie Cantu MD Primary Care Provider [phone] [phone] Allergies No known active allergies Medications ascorbic acid (VITAMIN C) 500 MG tablet Take 1 tablet (500 mg total) by mouth in the morning. 0 02/17/2022 Active atorvastatin (LIPITOR) 40 MG tablet 1 tablet (40 mg total) by Enteral route nightly. 0 02/16/2022 Active aspirin 81 MG chewable tabletIndicatio ns:Thrombocytos is 1 tablet (81 mg total) by Enteral route in the morning. Indications: Disorder of Abnormal Increase in Number of Blood Platelets. 0 02/17/2022 Active cyclobenzaprine (FLEXERIL) 10 MG tablet 1 tablet (10 mg total) by Enteral route every 8 (eight) hours as needed (Spasm). 0 02/16/2022 Active docusate sodium (COLACE) 100 MG capsule Take 1 capsule (100 mg total) by mouth every 12 (twelve) hours as needed for constipation. 0 02/16/2022 Active escitalopram (LEXAPRO) 10 MG tablet 1 tablet (10 mg total) by Enteral route in the morning. 0 02/17/2022 Active fludrocortisone (FLORINEF) 0.1 MG tablet 1 tablet (0.1 mg total) by Enteral route in the morning. 0 02/17/2022 Active gabapentin (NEURONTIN) 300 MG capsule 1 capsule (300 mg total) by Enteral route every 8 (eight) hours. 0 02/16/2022 Active midodrine (PROAMATINE) 5 MG tablet 3 tablets (15 mg total) by Enteral route every 8 (eight) hours. 0 02/16/2022 Active midodrine (PROAMATINE) 5 MG tablet Take 1 tablet (5 mg total) by mouth every 8 (eight) hours as needed (MAP < 65). 0 02/16/2022 Active multivitamin w/ minerals (THERA M PLUS) tablet tablet Take 1 tablet by mouth in the morning. 0 02/17/2022 Active QUEtiapine (SEROquel) 50 MG tablet 1 tablet (50 mg total) by Enteral route nightly. 0 02/16/2022 Active Active Problems Problem Noted Date Diagnosed Date Wound 12/22/2021 Immunizations Immunization Administration Dates Next Due Pfizer SARS-CoV-2 Vaccination 03/03/2021 Pneumococcal Conjugate 12/08/2021 Tdap 12/08/2021 Social History Tobacco Use Types Packs/Day Years Used Date Smoking Tobacco: Former Cigarettes Q uit: 12/11/2014 Comments Unknown Sex and Gender Information Value Date Recorded Sex Assigned at Not on file Legal Sex Female 4:51 PM EDT Gender Identity Not on file Sexual Orientation Not on file Last Filed Vital Signs Vital Sign Reading Time Taken Comments Blood Pressure 155/84 02/16/2022 3:40 PM CDT Pulse 70 02/16/2022 10:59 AM CDT Temperature 35.6 C (96.1 F) 02/16/2022 3:40 PM CDT Respiratory Rate 16 02/16/2022 3:40 PM CDT Oxygen Saturation 99% 02/16/2022 3:40 PM CDT Inhaled Oxygen Concentration - - Weight 43.5 kg (96 lb) 01/28/2022 4:23 AM CDT Height 154.9 cm (5' 1) 12/23/2021 11:57 AM CDT Body Mass Index 18.14 12/23/2021 11:57 AM CDT Plan of Treatment Health Maintenance Due Date Last Done Comments CT Colonography 1975 Colonoscopy 1975 Colorectal Cancer Screening 1975 FIT-DNA (Cologuard) 1975 FIT 1975 FOBT 1975 HPV/PAP 1975 Sigmoidoscopy 1975 Annual Visit Topic 1976 MMR Vaccines (1 of 1 - Stand julissa series) 1976 Hepatitis C Screening 1993 Hepatitis B Vaccines (1 of 3 - 19+ 3-dose series) 1994 Pap Smear 1996 Cervical Cancer Screening 2005 HPV/Cotest 2005 HPV 2005 Mammogram 2015 DTaP/Tdap/Td Vaccines (2 - T d or Tdap) 12/09/2031 12/08/2021 HIB Vaccines Aged Out No longer eligi ble based on patient's age to complete this topic HPV Vaccines Aged Out No longer eligi ble based on patient's age to complete this topic Hepatitis A Vaccines Aged Out No long er eligible based on patient's age to complete this topic IPV Vaccines Aged Out No longer eligi ble based on patient's age to complete this topic Meningococcal Vaccine Aged Out No lara yang eligible based on patient's age to complete this topic Pneumococcal Vaccine: Pediat rics (0 to 5 years) and At-Risk Patients (6 to 64 Years) Aged Out No longer eligi ble based on patient's age to complete this topic Additional Health Concerns Infection Onset Date Last Indicated Acinetobacter Comment:Added from external infection. 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 01/02/2022 Advance Directives * Full Resuscitation (Latest Code Status on File) Date Activated Date Inactivated Comments 12/23/2021 12:32 AM 02/16/2022 10:15 PM RN to [facility] Care Teams Laundry Aide Relationship Specialty Start Date End Date Jennie Cantu MD [address] [place] [address] [place] [address] PCP - General Family Medicine 12/23/21
--- OUTSIDE RECORDS SUMMARY | 2024-11-10 01:33 | XMS_ITS | Encounter Summary ---
Author Organization [facility] Address [address] [place] [address] Care Team Providers Care Lead Game Designer Name Role Phone Jennie Linton MD Primary Care Provider +1- [phone] Encounter Details Date Type Department Care Team (Latest Contact Info) Description 11/09/2024 Travel Social History Tobacco Use Types Packs/Day Years Used Date Smoking Tobacco: Never Smokeless Tobacco: Never Alcohol Use Standard Drinks/Week Comments Never 0 (1 standard drink = 0.6 oz pur e alcohol) PHQ-2 Answer Date Recorded Patient Health Questionnaire-2 Score 0 10/06/2023 Comments Unknown Sex and Gender Information Value Date Recorded Sex Assigned at Female 07/10/2024 8:27 AM CDT Legal Sex Female 2:53 PM THROAT CUTTER Gender Identity Not on file Sexual Orientation Not on file documented as of this encounter Plan of Treatment Upcoming Encounters Date Type Department Care Team (Late st Contact Info) Description 11/13/2024 8:15 AM CDT Appointment [facility] [address] [place] [address] Faye Mccarty MD [address] [place] [address] documented as of this encounter Visit Diagnoses Not on filedocumented in this encounter Additional Health Concerns Infection Onset Date Last Indicated Resolved Time 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
--- OUTSIDE RECORDS SUMMARY | 2024-11-10 01:33 | XMS_ITS | Encounter Summary ---
Author Organization [facility] Address [address] [place] [address] Care Team Providers Care Braiding Machine Operator Name Role Phone Jennie Linton MD Primary Care Provider +1- [phone] Yesi Natarajan COOKER LOADER Unavailable Encounter Details Date Type Department Care Team (Late st Contact Info) Description 07/10/2024 MyChart Message Enc [facility] Call Center [address] [place] [phone] Mychart, [facility] Provider gentamicin (GARAMYCIN) 0.1 % ointment Social History Tobacco Use Types Packs/Day Years Used Date Smoking Tobacco: Never Smokeless Tobacco: Never Alcohol Use Standard Drinks/Week Comments Never 0 (1 standard drink = 0.6 oz pur e alcohol) PHQ-2 Answer Date Recorded Patient Health Questionnaire-2 Score 0 10/06/2023 Comments Unknown Sex and Gender Information Value Date Recorded Sex Assigned at Female 07/10/2024 8:27 AM CDT Legal Sex Female 2:53 PM MEDIA PRODUCER Gender Identity Not on file Sexual Orientation Not on file documented as of this encounter Plan of Treatment Upcoming Encounters Date Type Department Care Team (Late st Contact Info) Description 11/13/2024 8:15 AM CDT Appointment [facility] [place] [address] Faye Mccarty MD [address] [place] [address] documented as of this encounter Visit Diagnoses Not on filedocumented in this encounter Additional Health Concerns Infection Onset Date Last Indicated Resolved Time 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
--- OUTSIDE RECORDS SUMMARY | 2024-11-10 01:33 | XMS_ITS | Encounter Summary ---
Author Organization [facility] Address [address] [place] [address] Care Team Providers Care Computer Support Technician Name Role Phone Jennie Cantu MD Primary Care Provider [phone] [phone] Encounter Details Date Type Department Care Team (Late st Contact Info) Description 10/07/2021 Lab Requisition [facility] Services [address] [place] [address] [place] [address] [place] [address] Social History Tobacco Use Types [...] Procedure Name Priority Date/Time Associated Diagnosis Comments BASIC METABOLIC PANEL Routine 10/07/2021 4:04 AM CDT documented in this encounter Results * (ABNORMAL) BASIC METABOLIC PANEL (10/07/2021 4:04 AM CDT) SODIUM 141 136 - 145 mmol/L 10/07/2021 8:10 AM CDT [facility] POTASSIUM 3.4 3.4 - 5.1 mmol/L 10/07/2021 8:10 AM T [facility] CHLORIDE 105 98 - 107 mmol/L 10/07/2021 8:10 AM T [facility] CO2 27 22 - 29 mmol/L 10/07/2021 8:10 AM T [facility] CALCIUM 9.0 8.6 - 10.4 mg/dL 10/07/2021 8:10 AM CDT [facility] BUN 13 6 - 20 mg/dL 10/07/2021 8:10 AM T [facility] CREATININE 0.18(L) 0.51 - 0.95 mg/dL 10/07/2021 8:10 AM T [facility] GLUCOSE 117(H) 74 - 99 mg/dL 10/07/2021 8:10 AM T [facility] GFR >60 >=60 mL/min/1.7 3 sq meter 10/07/2021 8:10 AM T [facility] Comment:eGFR calculated with 2020 CKD-EPI equation. Vegetarian diet, extremely high or low muscle mass, and may affect results. Cystatin C with Glomerular Filtration Rate is a suitable alternative for these patients. ANION GAP 9 8 - 16 mmol/L 10/07/2021 8:10 AM T [facility] Blood Collection / Unknown 10/07/2021 4:04 AM CDT 10/07/2021 6:49 AM CDT us Kristin Llanos MD CHEMISTRY ORDERABLES Final Resul t [facility] CLIA# [id number] [address] [place] [address] documented in this encounter Visit Diagnoses Not on filedocumented in this encounter Additional Health Concerns Infection Onset Date Last Indicated Resolved Time R/O C. 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
--- OUTSIDE RECORDS SUMMARY | 2024-11-10 01:33 | XMS_ITS | Encounter Summary ---
Author Organization [facility] Address [address] [place] [address] Care Team Providers Care Trench Pipe Layer Name Role Phone Jennie Cantu MD Primary Care Provider [phone] [phone] Encounter Details Date Type Department Care Team (Late st Contact Info) Description 10/18/2021 Lab Requisition [facility] Laboratory Services [address] [place] [address] [facility], External Provider [address] [place] [address] Social History Tobacco Use Types Packs/Day Years [...] Associated Diagnosis Comments CBC WITH DIFFERENTIAL Routine 10/18/2021 3:00 AM CDT PHOSPHORUS Routine 10/18/2021 3:00 AM CDT MAGNESIUM LEVEL Routine 10/18/2021 3:00 AM CDT BASIC METABOLIC PANEL Routine 10/18/2021 3:00 AM CDT documented in this encounter Results * MAGNESIUM LEVEL (10/18/2021 3:00 AM CDT) Pathologist [facility] MAGNESIUM 2.1 1.6 - 2.6 mg/dL 10/18/2021 5:53 AM CDT [facility] Blood Collection / Unknown 10/18/2021 3:00 AM CDT 10/18/2021 5:17 AM CDT External Provider [facility] CHEMISTRY ORDERABLES Cortney l Result [facility] CLIA# [id number] [place] [address] * PHOSPHORUS (10/18/2021 3:00 AM CDT) Pathologist [facility] PHOSPHORUS 3.9 2.5 - 4.5 mg/dL 10/18/2021 5:53 AM CDT [facility] Blood Collection / Unknown 10/18/2021 3:00 AM CDT 10/18/2021 5:17 AM CDT External Provider [facility] CHEMISTRY ORDERABLES Cortney l Result [facility] CLIA# [id number] [place] [address] * (ABNORMAL) CBC WITH DIFFERENTIAL (10/18/2021 3:00 AM CDT) [facility] WBC 7.0 4.5 - 10.5 K/uL 10/18/2021 5:37 AM CDT [facility] RBC 3.67(L) 3.90 - 4.90 M/uL 10/18/2021 5:37 AM CDT [facility] HEMOGLOBIN 10.6(L) 11.8 - 14.8 g/dL 10/18/2021 5:37 AM CDT [facility] HEMATOCRIT 31.8(L) 35.5 - 44.0 % 10/18/2021 5:37 AM CDT [facility] LABORATORY SERVICES [facility] MCV 86.6 82.0 - 99.0 fL 10/18/2021 5:37 AM CDT [facility] LABORATORY SERVICES [facility] MCH 28.9 27.8 - 34.5 pg 10/18/2021 5:37 AM CDT [facility] LABORATORY SERVICES [facility] MCHC 33.4 32.5 - 35.5 g/dL 10/18/2021 5:37 AM CDT [facility] LABORATORY SERVICES [facility] RDW 20.0(H) 11.5 - 14.5 % 10/18/2021 5:37 AM CDT [facility] LABORATORY SERVICES [facility] PLATELETS 362 160 - 420 K/uL 10/18/2021 5:37 AM CDT [facility] LABORATORY SERVICES [facility] MPV 7.7(L) 8.7 - 12.7 fL 10/18/2021 5:37 AM CDT [facility] LABORATORY SERVICES - [facility] NEUTROPHILS 67 % 10/18/2021 5:37 AM CDT [facility] LABORATORY SERVICES - [facility] LYMPHOCYTES 24 % 10/18/2021 5:37 AM CDT [facility] LABORATORY SERVICES [facility] MONOCYTES 7 % 10/18/2021 5:37 AM CDT [facility] LABORATORY SERVICES [facility] EOSINOPHILS 2 % 10/18/2021 5:37 AM CDT [facility] LABORATORY SERVICES [facility] BASOPHILS 0 % 10/18/2021 5:37 AM CDT [facility] LABORATORY SERVICES [facility] NEUTROPHIL ABSOLUTE 4.70 1.90 - 7.00 K/uL 10/18/2021 5:37 AM CDT [facility] LABORATORY SERVICES [facility] LYMPHOCYTE ABSOLUTE 1.70 0.70 - 4.50 K/uL 10/18/2021 5:37 AM CDT [facility] LABORATORY SERVICES [facility] MONOCYTE ABSOLUTE 0.50 0.10 - 1.30 K/uL 10/18/2021 5:37 AM CDT [facility] LABORATORY SERVICES [facility] EOSINOPHIL ABSOLUTE 0.10 0.00 - 0.70 K/uL 10/18/2021 5:37 AM CDT [facility] LABORATORY SERVICES [facility] BASOPHILS ABSOLUTE 0.00 0.00 - 0.20 K/uL 10/18/2021 5:37 AM CDT [facility] Blood Collection / Unknown 10/18/2021 3:00 AM CDT 10/18/2021 5:17 AM CDT us External Provider [facility] HEMATOLOGY ORDERABLES Fin al Result [facility] CLIA# [id number] [address] [place] [address] * (ABNORMAL) BASIC METABOLIC PANEL (10/18/2021 3:00 AM CDT) SODIUM 138 136 - 145 mmol/L 10/18/2021 5:53 AM T [facility] POTASSIUM 3.7 3.4 - 5.1 mmol/L 10/18/2021 5:53 AM [facility] CHLORIDE 105 98 - 107 mmol/L 10/18/2021 5:53 AM T [facility] CO2 25 22 - 29 mmol/L 10/18/2021 5:53 AM T [facility] CALCIUM 9.3 8.6 - 10.4 mg/dL 10/18/2021 5:53 AM T [facility] BUN 14 6 - 20 mg/dL 10/18/2021 5:53 AM [facility] CREATININE 0.17(L) 0.51 - 0.95 mg/dL 10/18/2021 5:53 AM [facility] GLUCOSE 130(H) 74 - 99 mg/dL 10/18/2021 5:53 AM [facility] GFR >60 >=60 mL/min/1.7 3 sq meter 10/18/2021 5:53 AM [facility] Comment:eGFR calculated with 2020 CKD-EPI equation. Vegetarian diet, extremely high or low muscle mass, and may affect results. Cystatin C with Glomerular Filtration Rate is a suitable alternative for these patients. ANION GAP 8 8 - 16 mmol/L 10/18/2021 5:53 AM T [facility] LABORATORY [facility] Blood Collection / Unknown 10/18/2021 3:00 AM CDT 10/18/2021 5:17 AM CDT us External Provider [facility] CHEMISTRY ORDERABLES Cortney l Result [facility] LABORATORY [facility] CLIA# [id number] [address] [place] [address] documented in this encounter Visit Diagnoses Not on filedocumented in this encounter Additional Health Concerns Infection Onset Date Last Indicated Resolved Time R/O C. 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
--- OUTSIDE RECORDS SUMMARY | 2024-11-10 01:33 | XMS_ITS | Encounter Summary ---
Author Organization [facility] Address [address] [place] [address] Care Team Providers Care Wood Form Builder Name Role Phone Jennie Cantu MD Primary Care Provider [phone] [phone] Encounter Details Date Type Department Care Team (Late st Contact Info) Description 11/14/2021 Lab Requisition [facility] Laboratory Services [address] [place] [address] [place] [address] [place] [address] Social History Tobacco Use Types [...] Associated Diagnosis Comments CBC WITH DIFFERENTIAL Routine 11/14/2021 3:00 AM CDT BASIC METABOLIC PANEL Routine 11/14/2021 3:00 AM CDT documented in this encounter Results * (ABNORMAL) CBC WITH DIFFERENTIAL (11/14/2021 3:00 AM CDT) WBC 8.4 4.5 - 10.5 K/uL 11/14/2021 7:20 AM CDT [facility] LABORATORY [facility] RBC 4.30 3.90 - 4.90 M/uL 11/14/2021 7:20 AM CDT [facility] LABORATORY [facility] HEMOGLOBIN 12.2 11.8 - 14.8 g/dL 11/14/2021 7:20 AM CDT [facility] LABORATORY [facility] HEMATOCRIT 37.0 35.5 - 44.0 % 11/14/2021 7:20 AM CDT [facility] LABORATORY [facility] MCV 86.0 82.0 - 99.0 fL 11/14/2021 7:20 AM CDT [facility] LABORATORY [facility] MCH 28.4 27.8 - 34.5 pg 11/14/2021 7:20 AM CDT [facility] LABORATORY [facility] MCHC 33.0 32.5 - 35.5 g/dL 11/14/2021 7:20 AM CDT [facility] LABORATORY [facility] RDW 18.8(H) 11.5 - 14.5 % 11/14/2021 7:20 AM CDT [facility] LABORATORY [facility] PLATELETS 435(H) 160 - 420 K/uL 11/14/2021 7:20 AM CDT [facility] LABORATORY [facility] MPV 8.2(L) 8.7 - 12.7 fL 11/14/2021 7:20 AM CDT [facility] LABORATORY [facility] NEUTROPHILS 59 % 11/14/2021 7:20 AM CDT [facility] LABORATORY [facility] LYMPHOCYTES 29 % 11/14/2021 7:20 AM CDT [facility] LABORATORY SERVICES [facility] MONOCYTES 10 % 11/14/2021 7:20 AM CDT [facility] LABORATORY [facility] EOSINOPHILS 2 % 11/14/2021 7:20 AM CDT [facility] LABORATORY SERVICES [facility] BASOPHILS 0 % 11/14/2021 7:20 AM CDT [facility] LABORATORY [facility] NEUTROPHIL ABSOLUTE 5.00 1.90 - 7.00 K/uL 11/14/2021 7:20 AM CDT [facility] LABORATORY [facility] LYMPHOCYTE ABSOLUTE 2.40 0.70 - 4.50 K/uL 11/14/2021 7:20 AM CDT [facility] LABORATORY [facility] MONOCYTE ABSOLUTE 0.80 0.10 - 1.30 K/uL 11/14/2021 7:20 AM CDT [facility] LABORATORY SERVICES - [facility] EOSINOPHIL ABSOLUTE 0.20 0.00 - 0.70 K/uL 11/14/2021 7:20 AM CDT [facility] LABORATORY SERVICES [facility] BASOPHILS ABSOLUTE 0.00 0.00 - 0.20 K/uL 11/14/2021 7:20 AM CDT [facility] LABORATORY [facility] Blood 11/14/2021 3:00 AM CDT 11/14/2021 6:24 AM CDT Kristin Llanos MD HEMATOLOGY ORDERABLES Final Resu lt [facility] CLIA# [id number] [address] [place] [address] * (ABNORMAL) BASIC METABOLIC PANEL (11/14/2021 3:00 AM CDT) SODIUM 137 136 - 145 mmol/L 11/14/2021 7:52 AM CDT [facility] LABORATORY [facility] POTASSIUM 3.7 3.4 - 5.1 mmol/L 11/14/2021 7:52 AM CDT [facility] LABORATORY [facility] CHLORIDE 101 98 - 107 mmol/L 11/14/2021 7:52 AM CDT [facility] LABORATORY [facility] CO2 26 22 - 29 mmol/L 11/14/2021 7:52 AM CDT [facility] LABORATORY [facility] CALCIUM 9.9 8.6 - 10.4 mg/dL 11/14/2021 7:52 AM CDT [facility] LABORATORY [facility] BUN 15 6 - 20 mg/dL 11/14/2021 7:52 AM CDT [facility] LABORATORY [facility] CREATININE 0.20(L) 0.51 - 0.95 mg/dL 11/14/2021 7:52 AM CDT [facility] LABORATORY [facility] GLUCOSE 101(H) 74 - 99 mg/dL 11/14/2021 7:52 AM CDT [facility] LABORATORY [facility] GFR >60 >=60 mL/min/1.7 3 sq meter 11/14/2021 7:52 AM CDT [facility] LABORATORY [facility] Comment:eGFR calculated with 2020 CKD-EPI equation. Vegetarian diet, extremely high or low muscle mass, and may affect results. Cystatin C with Glomerular Filtration Rate is a suitable alternative for these patients. ANION GAP 10 8 - 16 mmol/L 11/14/2021 7:52 AM CDT [facility] Blood 11/14/2021 3:00 AM CDT 11/14/2021 6:24 AM CDT us Kristin Llanos MD CHEMISTRY ORDERABLES Final Resul t [facility] [employer] [facility] CLIA# [id number] [address] [place] [address] documented in this encounter Visit Diagnoses Not on filedocumented in this encounter Additional Health Concerns Infection Onset Date Last Indicated Resolved Time R/O C. 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
--- OUTSIDE RECORDS SUMMARY | 2024-11-10 01:33 | XMS_ITS | Encounter Summary ---
Author Organization [facility] Address [address] [place] [address] Care Team Providers Care Kitchen Food Server Name Role Phone Jennie Linton MD Primary Care Provider +1- [phone] Reason for Referral * Imaging (Routine) - Closed Specialty Diagnoses / Procedures Referred By Contac t Referred To Contact RADIOLOGY Diagnoses Flaccid neuropathic bladder, not elsewhere classified Procedures US RETROPERITONEAL COMP Paxton Lim MD [address] [place] [address] Phone: tel: fax: Referral ID Status Reason Start Date Expiration Date Visits Re quested Visits Authorized [id number] Closed 10/23/2024 10/23/2025 1 1 Reason for Visit * Imaging (Routine) - Closed Specialty Diagnoses / Procedures Referred By Sekou christine Referred To Contact RADIOLOGY Diagnoses Flaccid neuropathic bladder, not elsewhere classified Procedures US RETROPERITONEAL COMP Paxton Lim MD [address] [facility] [place] [place] [address] Phone: tel: fax: Referral ID Status Reason Start Date Expiration Date Visits Re quested Visits Authorized [id number] Closed 10/23/2024 10/23/2025 1 1 Encounter Details Date Type Department Care Team (Late st Contact Info) Description 11/09/2024 9:44 AM CDT Hospital Encounter [facility] [place] [place] [address] Paxton Lim MD [address] [place] [address] Arrived Social History Tobacco Use Types Packs/Day Years Used Date Smoking Tobacco: Never Smokeless Tobacco: Never Alcohol Use Standard Drinks/Week Comments Never 0 (1 standard drink = 0.6 oz pur e alcohol) PHQ-2 Answer Date Recorded Patient Health Questionnaire-2 Score 0 10/06/2023 Comments Unknown Sex and Gender Information Value Date Recorded Sex Assigned at Female 07/10/2024 8:27 AM CDT Legal Sex Female 2:53 PM CLASSIFICATION AND TREATMENT DIRECTOR Gender Identity Not on file Sexual Orientation Not on file documented as of this encounter Plan of Treatment Upcoming Encounters Date Type Department Care Team (Late st Contact Info) Description 11/13/2024 8:15 AM CDT Appointment [facility] [place] [address] Faye Mccarty MD [address] [place] [address] documented as of this encounter Procedures Procedure Name Priority Date/Time Associated Diagnosis Comments US RETROPERITONEAL COMP Routine 11/10/19 10:39 AM CDT Flaccid neuropathic bladder, not elsewhere classified documented in this encounter Results * US RETROPERITONEAL COMP (11/09/2024 10:39 [...] 11:01 AM Narrative 11/09/2024 11:29 AM CDT [address] [address] IMAGING STUDIES: US RETROPERITONEAL COMP DATE: 11/09/2024 [...] Procedure Note Samy Diaz MD - 11/09/2024 [facility] [address] [place], [place] [address] IMAGING STUDIES: US RETROPERITONEAL COMPDATE: 11/09/2024 9:52 [...] us Paxton Lim MD ULTRASOUND Final Result documented in this encounter Visit Diagnoses Diagnosis Flaccid neuropathic bladder, not elsewhere classified documented in this encounter Additional Health Concerns Infection Onset Date Last Indicated Resolved Time 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
--- NOTE | 2024-11-10 07:18 | WPDHPUPDATE1 ---
History and Physical Update Update Date/Time: 11/10/24 07:18 History and Physical has been reviewed, including an updated exam of the patient. There are NO changes in the patient's condition. Risks, benefits, and alternatives have been discussed and questions answered. Patient agrees to proceed with procedure.
[2024-11-10 08:54] VITALS: BP 117/67; PULSE 50; RESP 16; TEMP 36.3; O2SAT 100; BMI 13.3
--- NOTE | 2024-11-10 09:13 | WPDANESEPPF ---
Anes - Initial Pre Proc Eval Procedure: Operation Date: 11/10/24 09:45 Proposed Procedures p Cystoscopy,Insertion Suprapubic Tube - Zev Delvalle MD Date/Time: 11/10/24 09:13 Surgeon: Zev Delvalle MD Pre Op Diagnosis: flacid neuropathic bladder Patient Data Age: 49 Gender: F Height: 1.55 m Weight: 32 kg Last Vital Signs Temp 36.3 C L 11/10/24 08:54 Pulse 50 L 11/10/24 08:54 Resp 16 11/10/24 08:54 BP 117/67 11/10/24 08:54 Pulse Ox 100 11/10/24 08:54 O2 Del Method Room Air 11/10/24 08:54 Allergies Allergy/AdvReac Type Severity Reaction Status Date / Time No Known Allergies Allergy Verified 11/10/24 08:52 Home Medications ?Medication ?Instructions ?Recorded ?Confirmed ?Type ascorbic acid (vitamin C) 500 mg 500 mg PO DAILY 11/02/24 11/02/24 History tablet (C-500) aspirin 81 mg chewable tablet 1 tablet PO DAILY 11/02/24 11/02/24 History atorvastatin 40 mg tablet 40 mg PO QPM 11/02/24 11/02/24 History escitalopram oxalate 10 mg tablet 10 mg PO DAILY 11/02/24 11/02/24 History fludrocortisone 0.1 mg tablet 0.1 mg PO DAILY 11/02/24 11/02/24 History gabapentin 300 mg capsule 300 mg PO Q8H 11/02/24 11/10/24 History midodrine 5 mg tablet 10 mg PO TID 11/02/24 11/10/24 History multivitamin (Daily Multi-Vitamin 1 tablet PO DAILY 11/02/24 11/02/24 History tablet) Patient hx anesthesia problems: none Family hx anesthesia problems: none Results Review: All pre-operative results and documents have been reviewed as part of the pre-operative evaluation. [facility] Past Medical History Medical History (Updated 11/10/24 @ 09:13 by Paulino Fields MD) Quadriplegia Social History Social History Years smoked: 20 Smoking status: Former smoker Tobacco type: cigarettes and e-cigarettes/vaping Smoking end date: 11/03/11 Living arrangements: with family Spiritual care concerns: No Anes - Eval Final PreProcedure Day of Procedure 11/10/24 09:13 Patient weight: thin Heart: regular rate and rhythm Lungs: clear to auscultation Airway: Mallampati scale class II and special considerations poor opening Neurological: alert and oriented Last oral intake: >/= 8 hours ASA classification: IV Emergent: no Anesthetic plan: proceed Anesthesia type and monitoring: general LMA and standard monitoring Results Review: All pre-operative results and documents have been reviewed as part of the pre-operative evaluation. Informed Consent: The patient's anesthetic plan and its attendant risks and benefits were discussed with the patient/family/POA. Questions were solicited and answers provided to the satisfaction of the patient/family/POA.
[2024-11-10] MEDS: LACTATED RINGERS 1,000 ML 30 ML IV CONT (09:17)
[2024-11-10] MEDS: ceFAZolin 2 GM in SODIUM CHLORIDE 0.9% IV 50 ML 100 ML IVPB (10:04)
[2024-11-10] MEDS: LIDO 1%/EPINEPHRINE 1:100,000 20 ML VIAL 10 ML INFILTRATE (10:20)
--- NOTE | 2024-11-10 10:29 | S_PTH ---
PATIENT: Mis Rosario LOC: [facility] U#:[id number] AGE/SX: 49/F ROOM: RE11/10/[address]: Zev Delvalle MD : 1975 BED: DIS: 11/10/2024 SPEC #: [id number] RECD: 11/10/24 13:11 STATUS: DELLA REQ #: [id number] ESSENCE: 11/10/24 10:[address]: Zev Delvalle DEPT: [facility] Surgical RECD BY: Indu Hay ENTERED: 11/10/24 13:11 SP TYPE: Surgical OTHR DR: UNKNOWN,DOCTOR Tissues: A - Stone Procedures: Gross Exam Level 1 Crystalline Analysis
[2024-11-10 10:57] VITALS: BP 81/42; PULSE 63; RESP 14; O2SAT 100
--- NOTE | 2024-11-10 11:12 | W.PM.PROC2 ---
Procedure Note - Detailed Date of Procedure 11/10/24 Pre-op Diagnosis flacid neuropathic bladder Post-op Diagnosis Same Procedure Performed Cystoscopy with placement of suprapubic catheter Extraction of bladder stones Surgeon Zev Delvalle MD Anesthesia MAC and Local Indications Is a woman with a spinal cord injury she has been managed with a chronic indwelling catheter in her urethra for the last 3 years. She presents today for suprapubic tube. Understands risks of bleeding, infection, damage surrounding organs, damage to the bowels, malignancy, leakage per urethra or around the suprapubic tube. She agrees to proceed Findings SP tube placed Somewhat patulous urethra Small capacity bladder Bladder stones extracted Description of Procedure She was correctly identified. Informed consent obtained. From the operating room. She was given monitored anesthesia care. Placed in the dorsal lithotomy position. Prepped and draped sterile fashion. Time-out performed. Placed in steep Trendelenburg. Cystoscopy revealed a small capacity bladder. Urethra somewhat patulous. Multiple stones within the bladder. They were Portillo catheter balloon shaped like they had been encrusted around a Portillo catheter balloon. The largest stone was grasped with a grasper and extracted. Some of the smaller ones were treated in this way as well. The rest of the small stones were irrigated out. I filled her bladder as much as I could. With her patulous urethra some irrigant did come around the cystoscope. I attempted to close the bladder neck with a Ray-Latonya in the vaginal orifice. I chose a site at the dome of the bladder to 6 fingerbreadths cephalad to the pubic bone. I entered the dome of the bladder the finer needle. Placed a guidewire. I incised the skin. I dilated the tract. I placed the suprapubic tube inducer sheath. I then placed a [address] [place] Portillo over a wire. The balloon was inflated and confirmed to be in the bladder. It was secured to the skin with suture. Dressing was applied. She was awakened transferred to PACU in stable condition Estimated Blood Loss 1 Pathology Yes (Stone material) Complications No immediate complications Condition Stable Disposition PACU
[2024-11-10 11:25] VITALS: BP 95/56; PULSE 55; O2SAT 100
[2024-11-10 11:55] VITALS: BP 89/53; PULSE 48; O2SAT 100
== END 2024-11-10 12:20 | disposition home or self-care (01) ==
PROVIDERS: Visit Provider Urology
PROC: 0T9B30Z Drainage of Bladder with Drainage Device, Percutaneous Approach (ICD-10-PCS; CPT 51102; principal; 2024-11-10 09:45)
DX: N31.2 Flaccid neuropathic bladder, not elsewhere classified (principal); G82.50 Quadriplegia, unspecified; Z87.891 Personal history of nicotine dependence
CPT/HCPCS: 52310; 51102; 82365; 88300; J0690; C2627; J2003; J2004; J2250; J2704; J3010; J7120